=== PATIENT | male | born 1965 | race Caucasian/White ===

== ENCOUNTER → 2017-04-22 | Outpatient (CLI) | payer OTHER ==
[~2017-04-22] MED LIST: ALBUAER2 INH; LORA10CA2 PO; METO25TA56 PO; SYMIN160 INH; TIOTCAP INH
--- NOTE | 2017-04-22 09:20 | DIAGNOSTIC IMAGING REPORT ---
CHEST 2 VIEWS ROUTINE HISTORY: Z87.891 Former [id number] COMPARISON: Chest 05/18/2011. FINDINGS: The heart is normal in size. No pleural effusions. No pneumothorax. The lungs are hyperexpanded with apical predominant emphysematous changes. Biapical pleural thickening has slightly progressed. Linear scarlike densities within the right lung apex, unchanged. There are new bibasilar linear densities. Mild interstitial thickening is likely chronic. IMPRESSION: 1. There are new bibasilar linear densities. This favors atelectasis. However, a pneumonia could also have a similar appearance. 2. Emphysema. 3. Biapical pleural thickening which has slightly progressed. Electronically signed by: Broderick Nunez M.D. 04/22/2017 9:19 AM Dictated Date/Time: 04/22/2017 9:17 AM
== END | disposition home or self-care (01) ==
LOC: C.RAD1850 08:42
PROVIDERS: ATTEND Physician Assistant
DX: Z87.891 Personal history of nicotine dependence (principal)

== ENCOUNTER → 2017-10-22 | Outpatient (CLI) | payer OTHER ==
--- NOTE | 2017-10-22 10:26 | DIAGNOSTIC IMAGING REPORT ---
CHEST 2 VIEWS ROUTINE HISTORY: 52 years-old Male R05 [id number] acute cough COMPARISON: Chest radiographs 04/22/2017 TECHNIQUE: PA and lateral views of the chest FINDINGS: Cardiac silhouette is within normal limits. Opacity about the right cardiophrenic angle redemonstrated suggesting prominent epicardial fat pad. Biapical pleural-parenchymal scarring with pleural thickening. Bullous emphysematous changes are noted with chronic interstitial coarsening. Lungs are hyperinflated with diaphragmatic flattening. Subsegmental left greater than right bibasilar opacities. Degenerative changes of the shoulders and spine. IMPRESSION: 1. Bullous emphysema with chronic interstitial coarsening. 2. Subsegmental bibasilar opacities favor atelectasis/scarring. The above report was generated using voice recognition software. It may contain grammatical, syntax or spelling errors. Electronically signed by: Paulino Aguayo M.D. 10/22/2017 10:24 AM Dictated Date/Time: 10/22/2017 10:22 AM
== END | disposition home or self-care (01) ==
LOC: C.RAD1850 10:07
PROVIDERS: ATTEND Physician Assistant
DX: R05 Cough (principal); J43.9 Emphysema, unspecified

== ENCOUNTER 2018-12-06 11:49 | Observation (INO) ==
--- NOTE | 2018-12-06 14:53 | Ultrasound Report ---
US extremity non-vascular ltd CLINICAL HISTORY: R 2nd digit abscess drained, now pain. ?Wood FB COMPARISON STUDY: Right finger 12/03/2018. FINDINGS: Real-time sonographic imaging along the undersurface of the right index finger was performe d with insurance healthcare representative images submitted. There is a sliver of slightly complex subdermal fluid no echo genic foreign bodies identified. IMPRESSION: A sliver of slightly complex subdermal fluid measuring 2.2 x 0.3 cm. This could represen t a residual abscess. No foreign bodies identified. Electronically signed by: Broderick Nunez M.D. 12/06/2018 2:51 PM
--- NOTE | 2018-12-06 15:39 | Orthopedic Consultation ---
Date of Consultation December 06, 2018 Assessment & Plan (1) Abscess of finger of right hand: Patient failed conservative management with simple I&D, packing placement and PO ABX. Has elected to under go surgical I&D with culturing and IV ABX. Reviewed consent form with Dr. Pringle and signed for elective procedure. We will keep patient overnight for IV ABX and pain control. Supervising Physician Co-Signing Physician Notes I saw and examined the patient and formulated the treatment plan. Proceed to OR tonight for I&D. Admit for IV antibiotics after surgery. Plan on D/C home tomorrow. History of Present Illness Reason for Consultation: Right index finger septic arthritis / abscess Attending Physician: Fei Pringle MD History of Present Illness This 53 yo M is seen in ED for consultation. Pt states that he had a puncture wound and foreign body on the ventral surface of his Right index finger approx 2 wks ago. Was seen in ED this past , had simple I&D with packing placement and OR ABX treatment with Bactrim and Keflex. Came back to ED today for follow up and packing removal. Symptoms progressed for worse with very limited ROM and purulent drainage. Pt denies numbness/tingling, CP, SOB, Nausea, vomiting, diarrhea, fever, chills or sweats. Allergies Allergy/AdvReac Type Severity Reaction Status Date / Time No Known Allergies Allergy Unknown Verified 12/06/18 16:19 Home Medications Home Medications Medication Instructions Recorded Confirmed Type metoprolol succinate [Toprol XL] 12.5 mg PO BID 01/18/18 12/06/18 History cephalexin [Keflex] 500 mg PO Q6H 10 Days #40 cap 12/03/18 12/06/18 Rx sulfamethoxazole-trimethoprim 1 tab PO Q12H #20 tab 12/03/18 12/06/18 Rx [Bactrim DS] albuterol sulfate [ProAir HFA] 2 puff INHALATION Q4 PRN 12/06/18 12/06/18 History [id number]-sdhyymvxq-bguiccfc 1 inh INHALATION DAILY 12/06/18 12/06/18 History [Trelegy Ellipta] Patient History Medical History History of COPD History of heart disease Surgical History History of left heart catheterization No pertinent past surgical history Family History Other No pertinent family history Social History Feels Safe at Home: Yes Smoking Status: Former smoker Tobacco Type: cigarettes ; Do You Dip or Chew Tobacco: Yes ; Hx Alcohol Use: Yes Hx Substance Use: No Review of Systems Review of Systems: All systems reviewed & are unremarkable except as noted in HPI & below Physical Exam Physical Exam: Right hand: Edematous area over MCP on ventral surface with fluctuance, central opening, surrounding erythema and limited ROM at MCP joint. Unable to make fist. No ecchymosis, warmth or palpable bony deformity. Able resist compressing between 2nd and 3rd digits. Able to resist distraction of pincer grasp. FROM of wrist. Appropriate dexterity of remaining digits. Results & Data Vital Signs (Past 12 Hours) Vital Signs Temp Pulse Pulse Resp BP BP Pulse Ox 12/06/18 13:50 88 18 124/74 99 12/06/18 11:50 36.7 C 77 20 125/71 96
[2018-12-06 15:54] LABS: Basophils # (auto) 0.04 K/uL (0-0.2); Basophils % (auto) 0.7 %; Eosinophils # (auto) 0.38 K/uL (0-0.5); Hemoglobin 15.2 g/dL (14.0-18.0); Immature Granulocytes # (auto) 0.01 K/uL (0.00-0.02); Immature Granulocytes % (auto) 0.2 %; Lymphocytes # (auto) 1.96 K/uL (1.2-3.4); Lymphocytes % (auto) 36.1 %; Mean Corpuscular Hgb Conc 34.5 g/dL (32-36); Mean Corpuscular Volume 89.6 fL (80-100); Mean Platelet Volume 10.6 fL (7.4-10.4); Monocytes # (auto) 0.59 K/uL (0.11-0.59); Monocytes % (auto) 10.9 %; Neutrophils # (auto) 2.45 K/uL (1.4-6.5); Neutrophils % (auto) 45.1 %; Platelet Count 178 K/uL (130-400); RDW Standard Deviation 42.6 fL (36.4-46.3); Red Blood Count 4.91 M/uL (4.7-6.1); White Blood Count 5.43 K/uL (4.8-10.8)
[2018-12-06] MEDS ORDERED: cefTRIAXone SODIUM 2000MG/70ML D5W IV ONE (16:02)
[2018-12-06 16:10] LABS: Albumin Level 3.6 gm/dl (3.4-5.0); BUN Creatinine Ratio 13.4 (10-20); Creatinine Clr Calc Pharmacy 74.6 ml/min; Est GFR (African American) 73.6; Est GFR (Non-African American) 63.5
[2018-12-06 16:13] LABS: Albumin Globulin Ratio 1.1 (0.9-2); Bilirubin,Total 0.6 mg/dl (0.2-1); Globulin 3.4 gm/dl (2.5-4.0)
[2018-12-06] MEDS ORDERED: LIDOCAINE HCL 2% 2 ML VIAL/AMP(20MG/ML) INFIL ONE (16:18)
[2018-12-06] MEDS ORDERED: DEXAMETHASONE SOD INJ 4 MG/ML VIAL ONE (16:18)
[2018-12-06] MEDS ORDERED: ONDANSETRON INJ 2 MG/ML 2 ML VIAL ONE (16:18)
[2018-12-06] MEDS ORDERED: PROPOFOL IV EMULSION 10 MG/ML 20 ML VIAL IV ONE (16:18)
[2018-12-06] MEDS ORDERED: MIDAZOLAM HCL 1 MG/ML 2ML VIAL ONE (16:19)
[2018-12-06] MEDS ORDERED: fentaNYL citrate 100 MCG/2 ML VIAL ONE (16:19)
[2018-12-06] MEDS ORDERED: BUPIVACAINE/EPINEPHRINE 0.5% MPF 1:200,000 30 ML VIAL ONE (16:26)
--- NOTE | 2018-12-06 16:28 | Anesthesiology Consultation ---
Date of Service December 06, 2018 Assessment & Plan (1) Encounter for pre-operative examination: Chart Review Chart Review: Acceptable Risk for Surgery and Patient NOT seen in Pre Admission Testing Consults Requested none ASA [id number] Proposed Anesthesia Anesthesia Type: General Risk / Benefits Reviewed With: PT / POA / Parent / Guardian, Accepts Plan and Informed Consent Obtained Additional Notes Patient refuses to remove contacts - understands that he is at risk of permanent eye damage including corneal abrasion. Pt adament that he will not remove contacts despite risk. History Surgery Operation Date: 12/06/18 16:00 Proposed Procedures p Incision and Drainage Extremity - Fei Pringle MD Height/Weight Height: 6 ft 4 in Weight: 79 kg Allergies Allergy/AdvReac Type Severity Reaction Status Date / Time No Known Allergies Allergy Unknown Verified 12/06/18 16:19 Medications Home Medications Medication Instructions Recorded Confirmed Last Taken metoprolol succinate [Toprol XL] 12.5 mg PO BID 01/18/18 12/06/18 Unknown cephalexin [Keflex] 500 mg PO Q6H 10 Days #40 cap 12/03/18 12/06/18 12/06/18 09:00 sulfamethoxazole-trimethoprim 1 tab PO Q12H #20 tab 12/03/18 12/06/18 12/06/18 09:00 [Bactrim DS] albuterol sulfate [ProAir HFA] 2 puff INHALATION Q4 PRN 12/06/18 12/06/18 Unknown [id number]-vgfstqpfu-weaxcxkt 1 inh INHALATION DAILY 12/06/18 12/06/18 Unknown [Trelegy Ellipta] NPO Date Last Intake of Fluids: 12/06/18 Time Last Intake of Fluids: 13:30 Date Last Intake of Solids: 12/05/18 Time Last Intake of Solids: 23:59 Past Medical History Medical History History of COPD History of heart disease Exercise / Class Metabolic Activity II 4-5 Yardwork/Stairs/Walk up hill Negative for chest pain or shortness of breath. Past Family History Family History Other No pertinent family history Past Surgical History Surgical History History of left heart catheterization No pertinent past surgical history Past Anesthesia History No Family Hx of Anesthesia Complications History of PONV No Hx of Motion Sickness Social History Smoking Status: Former smoker tobacco type: cigarettes Do You Dip or Chew Tobacco: Yes Hx Alcohol Use: Yes alcohol intake frequency: a few times a week (4-6 per week) Hx Substance Use: No Review of Systems Patient denies active symptoms of GERD. Physical Exam Vital Signs Last Vital Signs Temp 36.7 C 12/06/18 11:50 Pulse 57 L 12/06/18 16:11 Resp 18 12/06/18 16:11 BP 146/68 H 12/06/18 16:11 Pulse Ox 95 12/06/18 16:11 Constitutional not obese ENMT Mouth: + poor dentition and + chipped teeth; no TMJ abnormality and oral opening not small Thyromental Distance: > or= 3.5 Finger Breadths Mallampati Class: III Mouth / Teeth: 1. Chipped, broken and missing Neck normal visual inspection and + facial hair; neck extension not limited Respiratory normal respiratory effort Auscultation: lungs clear to auscultation bilaterally Cardiovascular Rate/Rhythm: regular rate and regular rhythm Heart Sounds: no murmur Neurologic moves all extremities Psychiatric Orientation: alert and oriented x 3 Testing Laboratory Results 12/06/18 15:45 12/06/18 15:45 Electrocardiogram Date: 12/06/18 Findings: + SB @ (52)
[2018-12-06] MEDS ORDERED: ePHEDrine sulfate 50 MG/ML SYR ONE (17:10)
[2018-12-06] MEDS ORDERED: ePHEDrine sulfate 50 MG/ML AMP IV PRN (17:16)
[2018-12-06] MEDS ORDERED: fentaNYL citrate 100 MCG/2 ML VIAL IV PRN (17:16)
[2018-12-06] MEDS ORDERED: ATROPINE SULFATE 0.1 MG/ML 10ML SYR IV PRN (17:16)
[2018-12-06] MEDS ORDERED: ONDANSETRON INJ 2 MG/ML 2 ML VIAL IV PRN ×2 (17:16→17:35)
--- NOTE | 2018-12-06 17:34 | Operative Report ---
Post Operative Report Pre & Post Diagnosis Operation Date: 12/06/18 16:00 Pre-Op Diagnosis: Right Index Finger Abscess Post-Op Diagnosis: Right Index Finger Abscess Procedure Operation Date: 12/06/18 16:00 Actual Procedures p Incision and Drainage Right Index Finger Abscess(Right) - Fei Pringle MD Surgeon Fei Pringle MD Tax Compliance Officer Chyna Hess PA-C Estimated Blood Loss 1 Findings Consistent with Post-Op Diagnosis Specimens Culture Right index finger Complications none Disposition Accompanied Patient To Recovery: Yes Disposition: Recovery Room Description of Procedure I was present during the entire case assisting with irrigation, debridement and dressing application. Please see Dr. Pringle procedure note for specifics of the case. I attest to the content of the Intraoperative Record and any orders documented therein. Any exceptions are noted below.
[2018-12-06] MEDS ORDERED: DiphenhydrAMINE HCL 50 MG/ML VIAL IV PRN (17:35)
[2018-12-06] MEDS ORDERED: METOCLOPRAMIDE HCL INJ 5 MG/ML 2 ML VIAL IV PRN (17:35)
[2018-12-06] MEDS ORDERED: NALOXONE HCL 0.4 MG/1 ML VIAL/CARP IV PRN (17:35)
[2018-12-06] MEDS ORDERED: OXYCODONE HCL IR 5 MG TAB (IMMEDIATE RELEASE) PO PRN (17:35)
[2018-12-06] MEDS ORDERED: MAGNESIUM HYDROXIDE SUSP 30 ML UDC PO PRN (17:35)
[2018-12-06] MEDS ORDERED: TAMSULOSIN HCL 0.4 MG CAP PO PRN (17:35)
[2018-12-06] MEDS ORDERED: BISACODYL 10 MG SUPP PR PRN (17:35)
--- NOTE | 2018-12-06 18:06 | Anesthesiology Progress Note ---
Date of Service December 06, 2018 Anesthesia Post Procedure Vital Signs Vital Signs: Temp Pulse Pulse Pulse Resp BP BP 12/06/18 17:55 66 14 116/55 L 12/06/18 17:45 60 14 103/63 12/06/18 17:36 36.4 C L 59 L 14 107/58 L 12/06/18 16:11 57 L 18 146/68 H 12/06/18 13:50 88 18 124/74 12/06/18 11:50 36.7 C 77 20 125/71 Pulse Ox 12/06/18 17:55 96 12/06/18 17:45 96 12/06/18 17:36 96 12/06/18 16:11 95 12/06/18 13:50 99 12/06/18 11:50 96 Pain Intensity Right 2nd Digit Finger: Pain Intensity: 3 Transfer of Care Handoff Completed per policy Notes Mental Status: alert / awake / arousable and participated in evaluation Patient Amnestic to Procedure: Yes Nausea / Vomiting: adequately controlled Pain: adequately controlled Airway Patency, RR, SpO2: stable & adequate BP & HR: stable & adequate Hydration State: stable & adequate Anesthetic Complications: no major complications apparent and Pt Satisfied with anesthetic care
[2018-12-06] MEDS ORDERED: ALBUTEROL HFA 8 GM INHALER INH PRN (18:25)
[2018-12-06] MEDS: KETOROLAC 30 MG/ML VIAL IV SCH (19:23)
[2018-12-06] MEDS: SODIUM CHLORIDE 0.9% 1000ML 1,000 ML IV SCH (19:23)
--- NOTE | 2018-12-06 20:38 | Emergency Department Note ---
History of Present Illness General Chief complaint: Suture/Staple/Packing Removal Stated complaint: PACKING IN FINGER NEEDS REMOVED Time Seen by Provider: 12/06/18 11:53 History of Present Illness Maximum Pain Intensity: 3 This is a 53-year-old male that presents to the emergency department via private vehicle with complaints of "packing in finger, needs removed". The patient states that he was here on the , and was informed to have it rechecked. He is here for removal of the packing. He notes some persistence of pain is a 3/10 but he has been following all directions and taking the antibiotics as prescribed. No fevers or chills. Home Medications Home Medications Medication Instructions Recorded Confirmed Type metoprolol succinate [Toprol XL] 25 mg PO DAILY 01/18/18 12/06/18 History cephalexin [Keflex] 500 mg PO Q6H 10 Days #40 cap 12/03/18 12/06/18 Rx sulfamethoxazole-trimethoprim 1 tab PO Q12H #20 tab 12/03/18 12/06/18 Rx [Bactrim DS] albuterol sulfate [ProAir HFA] 2 puff INHALATION Q4 PRN 12/06/18 12/06/18 History sxvompvvtrb-ewyuhiwxf-vawxfdkz 1 inh INHALATION DAILY 12/06/18 12/06/18 History [Trelegy Ellipta] Allergies Allergy/AdvReac Type Severity Reaction Status Date / Time No Known Allergies Allergy Unknown Verified 12/06/18 16:19 Past Med/Surg History Medical History History of COPD History of heart disease Surgical History History of left heart catheterization No pertinent past surgical history Family History Other No pertinent family history Social History Preferred Language: Armenian Beliefs That Will Affect Care: None Current Living Situation: Spouse Other Information That Helps Us Care for You: No Feels Safe at Home: Yes Safety Concerns: Feels Safe At This Time Smoking Status: Former smoker Tobacco Type: smokeless tobacco ; Do You Dip or Chew Tobacco: Yes ; Second Hand Exposure: Yes ; Hx Alcohol Use: Yes Alcohol type: beer Hx Substance Use: No Review of Systems A total of 10 systems reviewed and were otherwise negative Physical Exam Vital Signs Vital Signs - 24 hr 12/06/18 11:50 12/06/18 13:50 12/06/18 16:11 Temperature 36.7 C Temperature Source Oral Sepsis Recent Fever Within 48 Hours No Sepsis New/Unexplained Change in Mental Status No Sepsis Action Taken by Nursing No Action Required Pulse Rate 77 Pulse Rate [Left Finger] 88 57 L Pulse Rhythm Regular Pulse Strength Normal Respiratory Rate 20 18 18 Respiratory Effort / Characteristics Non-Labored Spontaneous Non-Labored Spontaneous Respiratory Depth Normal Normal Respiratory Pattern Regular Regular Blood Pressure 125/71 Blood Pressure [Left Arm] 124/74 146/68 H Blood Pressure Mean 89 Blood Pressure Mean [Left Arm] 90 94 Blood Pressure Position Sitting Blood Pressure Position [Left Arm] Lying Pulse Oximetry 96 99 95 Oxygen Delivery Method Room Air Room Air Room Air VITAL SIGNS - Vital signs and nursing notes were reviewed. Stable and afebrile. GENERAL -53-year-old male appearing his stated age who is in no acute distress. Communicates well with provider and answers questions appropriately. SKIN -overlying the ventral aspect of the patient's right proximal second digit there is packing inside a wound with surrounding yellow discoloration under the integument concerning for that of possible redeveloping abscess. There is no lymphogenic streaking. MOUTH/OROPHARYNX - Without perioral cyanosis. LUNGS - Chest wall symmetric without accessory muscle use, intercostals retractions, or central cyanosis. Normal vesicular breath sounds CTA B/L. No wheezes, rales, or rhonchi appreciated. CARDIAC - RRR with S1/S2. No murmur, rubs, or gallops appreciated. EXTREMITIES - No clubbing or peripheral cyanosis. No pretibial edema present. Skin as above. Patient is exquisitely tender overlying the wound. Minimal drainage. Packing in place. Full active extension of the right second digit however patient has limited flexion at the MCP joint of the right second digit. +5/5 strength noted in UE/LE bilaterally. NEUROLOGIC - Cranial nerves II through XII grossly intact. Sensory intact to light touch throughout. PSYCH - A&O, and cooperates fully with examiner. Pt is very pleasant and interac ts well with examiner. Course Administered Medications Acetaminophen (Tylenol) 1,000 mg PO Q8 EMMANUEL Stop: 01/05/19 21:59 Last Admin: 12/06/18 21:03 Dose: 1,000 mg Documented by: [id number] Docusate Sodium (Colace) 100 mg PO BID EMMANUEL Stop: 01/05/19 20:59 Last Admin: 12/06/18 21:00 Dose: Not Given Documented by: [id number] Sodium Chloride (Nss 1000ml) 1,000 mls @ 100 mls/hr IV .Q10H EMMANUEL Stop: 12/07/18 06:00 Last Admin: 12/06/18 19:23 Dose: 100 mls/hr Documented by: [id number] Ketorolac Tromethamine (Toradol) 30 mg IV Q6H EMMANUEL Stop: 12/07/18 13:01 Last Admin: 12/06/18 19:23 Dose: 30 mg Documented by: [id number] Sennosides (Senokot) 17.2 mg PO HS EMMANUEL Stop: 01/05/19 20:59 Last Admin: 12/06/18 21:00 Dose: Not Given Documented by: [id number] Discontinued Medications Bupivacaine HCl/Epinephrine Bitart (Sensorcaine/Epinephrine 0.5% Mpf 1:200,000) Confirm Administered Dose 30 ml .ROUTE .STK-MED ONE Stop: 12/06/18 16:27 Last Admin: 12/06/18 17:15 Dose: 8 ml Documented by: [id number] Ceftriaxone Sodium (Rocephin) Confirm Administered Dose 2,000 mg IV .STK-MED ONE Stop: 12/06/18 16:03 Last Admin: 12/06/18 16:11 Dose: 2,000 mg Documented by: [id number] Metoprolol Succinate (Toprol Xl) 12.5 mg PO BID EMMANUEL Stop: 01/05/19 20:59 Last Admin: 12/06/18 21:00 Dose: Not Given Documented by: [id number] Medical Decision Making Laboratory Data Result diagrams: 12/06/18 15:45 12/06/18 15:45 Lab Results 12/06/18 12/06/18 Range/Units 15:45 15:45 WBC 5.43 (4.8-10.8) K/uL RBC 4.91 (4.7-6.1) M/uL Hgb 15.2 (14.0-18.0) g/dL Hct 44.0 (42-52) % MCV 89.6 (80-100) fL MCH 31.0 (25-34) pg MCHC 34.5 (32-36) g/dL RDW Std Deviation 42.6 (36.4-46.3) fL RDW Coeff of Chad 13.0 (11.5-14.5) % Plt Count 178 (130-400) K/uL MPV 10.6 H (7.4-10.4) fL Immature Gran % (Auto) 0.2 % Neut % (Auto) 45.1 % Lymph % (Auto) 36.1 % Burleigh % (Auto) 10.9 % Eos % (Auto) 7.0 % Baso % (Auto) 0.7 % Immature Gran # (Auto) 0.01 (0.00-0.02) K/uL Neut # (Auto) 2.45 (1.4-6.5) K/uL Lymph # (Auto) 1.96 (1.2-3.4) K/uL Burleigh # (Auto) 0.59 (0.11-0.59) K/uL Eos # (Auto) 0.38 (0-0.5) K/uL Baso # (Auto) 0.04 (0-0.2) K/uL Sodium 140 (136-145) mmol/L Potassium 4.0 (3.5-5.1) mmol/L Chloride 105 (98-107) mmol/L Carbon Dioxide 28 (21-32) mmol/L Anion Gap 7.0 (3-11) BUN 17 (7-18) mg/dl Creatinine 1.28 (0.6-1.4) mg/dl Est Cr Clr Drug Dosing 74.6 ml/min Est GFR ( Amer) 73.6 Est GFR (Non-Af Amer) 63.5 BUN/Creatinine Ratio 13.4 (10-20) Glucose 94 (70-99) mg/dl Calcium 9.0 (8.5-10.1) mg/dl Total Bilirubin 0.6 (0.2-1) mg/dl AST 17 (15-37) U/L ALT 27 (12-78) U/L Alkaline Phosphatase 118 H (45-117) U/L Total Protein 7.0 (6.4-8.2) gm/dl Albumin 3.6 (3.4-5.0) gm/dl Globulin 3.4 (2.5-4.0) gm/dl Albumin/Globulin Ratio 1.1 (0.9-2) Imaging Data Radiologist's Impression: US extremity non-vascular ltd CLINICAL HISTORY: R 2nd digit abscess drained, now pain. ?Wood FB COMPARISON STUDY: Right finger 12/03/2018. FINDINGS: Real-time sonographic imaging along the undersurface of the right index finger was performed with outside medical sales representative images submitted. There is a sliver of slightly complex subdermal fluid no echogenic foreign bodies identified. IMPRESSION: A sliver of slightly complex subdermal fluid measuring 2.2 x 0.3 cm. This could represent a residual abscess. No foreign bodies identified. Electronically signed by: Broderick Nunez M.D. 12/06/2018 2:51 PM MDM Narrative Patient was seen and evaluated as above in room D2. Review was performed of nursing notes and vital signs. After obtaining a thorough history and physical examination the above work up was performed. He presents to us today for packing removal and wound recheck. I personally took care of the patient this past the . He is nontoxic on exam. Unfortunately patient is still quite tender despite being on the correct antibiotics for the wound, and washout of the wound a few days ago after I&D. After remove the packing there was some purulence. I had him soak the hand and I thoroughly irrigated this and unfortunately he was still quite tender. I am concerned there could be a small retained splinter/possible deeper infection that was not visualized when this was drained. I do believe that orthopedic involvement at this time is warranted. I discussed this with Dr. Pringle who came to bedside and decided to take the patient to the operative suite for further evaluation and management. Please refer to further documentation regarding his stay. Impression & Plan Encounter for wound re-check, Abscess packing removal, Persistent infection Discharge Plan Visit Data *Final* Discharge Date/Time: 12/06/18 16:13 Chief Complaint: Suture/Staple/Packing Removal Stated Complaint: PACKING IN FINGER NEEDS REMOVED ED Provider: Александр Serrano ED Midlevel Provider: Dao Cook Discharge Problem: Encounter for wound re-check, Abscess packing removal, Persistent infection Patient Disposition: Admitted As Inpatient Condition: Good Discharge Instructions Interventions: ED Discharge Assessment Last Done: 12/06/18 16:13
[2018-12-06] MEDS ORDERED: METOPROLOL SUCC 25MG EXT REL TAB PO SCH (21:00)
[2018-12-06] MEDS: DOCUSATE SODIUM 100 MG CAP PO SCH (21:00)
[2018-12-06] MEDS ORDERED: SENNA 8.6 MG TAB PO SCH (21:00)
[2018-12-06] MEDS ORDERED: Nursing to Pharmacy Communication ONE (21:00)
[2018-12-06] MEDS: ACETAMINOPHEN 500 MG TAB PO SCH (21:03)
--- NOTE | 2018-12-06 21:12 | Operative Report ---
DATE OF OPERATION: 12/06/2018 PREOPERATIVE DIAGNOSIS: Right hand abscess. POSTOPERATIVE DIAGNOSIS: Right hand abscess. OPERATIONS PERFORMED: Irrigation and debridement, right hand abscess. SURGEON: Fei Pringle MD STRAP MACHINE OPERATOR: Markell Hess PA-C. ESTIMATED BLOOD LOSS: 1 mL. IV FLUIDS: 600 mL crystalloid. SPECIMENS: Deep soft tissue swab. COMPLICATIONS: None. IMPLANTS: None. INDICATIONS: Mr. Carcamo is a 53-year-old gentleman who had a splinter get into his hand about 2 weeks ago. He developed an abscess that was I and D'd in the Emergency Room about 4 days ago. He came back today to have his packing removed. When it was removed, there was continued significant amount of purulence that came out of the wound. The patient complained of significant amount of pain as well over the area of the abscess. An ultrasound was performed which revealed a fluid pocket at the site of his previous I and D. No foreign body was identified on ultrasound. I had a long discussion with the patient about treatment options. Due to the concern for retained foreign body not visible on x-ray as well as the failure to respond to a local I and D, he is a candidate for surgical I and D. After reviewing the risks and benefits of surgery, alternatives to surgery and expected outcome, he elected to proceed. All questions were answered. Informed consent was signed. OPERATIVE FINDINGS: I was unable to identify a foreign body. There was some necrotic appearing tissue within the dermal layer which was excised. Deep culture was obtained. Packing was placed into the wound at the conclusion of the case. DESCRIPTION OF THE OPERATION: The patient was identified in the preoperative holding area where his surgical site was marked. He was brought back to main operating room where he was placed on the operating room table and general anesthesia was administered. All bony prominences were padded. Perioperative antibiotics had already been administered of Rocephin. He was then prepped and draped in normal sterile fashion. Prior to incision multidisciplinary timeout was called. All in the room were in agreement. I began by extending his previous incision, which was only about 3 mm long to a total distance of 1.5 cm. I dissected through the subcutaneous tissues. There was some necrotic appearing tissue along the proximal aspect of his previous incision which was debrided. He had some callusing of the epidermis as well that was removed. There were no maria ines fluid collections deeper. The wound did not probe down to the flexor tendon sheath. I then irrigated the wound with 1 liter of normal saline. Two strips of packing were placed in the wound to keep it open. A gauze dressing was then placed followed by Josiah. The patient was awoken from anesthesia and transferred to recovery room in stable condition. POSTOPERATIVE COURSE: The patient will be admitted overnight for continued IV antibiotics. We will follow his cultures. We will likely discharge him home tomorrow on oral antibiotics. His previous cultures done at his I and D in the Emergency Room grew MSSA, but he did not respond to Keflex and Bactrim, so we will see what his preliminary cultures show from today. No DVT prophylaxis was indicated after the small upper extremity joint surgery. I attest to the content of the Intraoperative Record and any orders documented therein. Any exception s are noted below.
[2018-12-07] MEDS: KETOROLAC 30 MG/ML VIAL IV SCH ×3 (00:19→13:10)
[2018-12-07] MEDS: ACETAMINOPHEN 500 MG TAB PO SCH ×2 (05:24→13:10)
[2018-12-07] MEDS: SODIUM CHLORIDE 0.9% 1000ML 1,000 ML IV SCH (05:26)
[2018-12-07 07:00] LABS: Hemoglobin 13.7 g/dL (14.0-18.0); Mean Corpuscular Hgb Conc 33.4 g/dL (32-36); Mean Corpuscular Volume 89.7 fL (80-100); Mean Platelet Volume 11.2 fL (7.4-10.4); Platelet Count 193 K/uL (130-400); RDW Coefficient of Variation 12.9 % (11.5-14.5); RDW Standard Deviation 42.6 fL (36.4-46.3); Red Blood Count 4.57 M/uL (4.7-6.1); White Blood Count 5.59 K/uL (4.8-10.8)
[2018-12-07] MEDS: DOCUSATE SODIUM 100 MG CAP PO SCH (07:25)
[2018-12-07 07:31] LABS: BUN Creatinine Ratio 19.2 (10-20); Calcium 8.7 mg/dl (8.5-10.1); Creatinine Clr Calc Pharmacy 71.7 ml/min; Est GFR (African American) 71.5; Est GFR (Non-African American) 61.7; Potassium 4.4 mmol/L (3.5-5.1)
[2018-12-07] MEDS ORDERED: MULTIVITAMIN TAB PO SCH (09:00)
[2018-12-07] MEDS ORDERED: METOPROLOL SUCC 25MG EXT REL TAB PO SCH (09:00)
[2018-12-07] MEDS ORDERED: FLUTICASONE/UMECLIDIN/VILANTER INH SCH (09:00)
--- NOTE | 2018-12-07 10:11 | Orthopedic Progress Note ---
Date of Service December 07, 2018 Assessment & Plan (1) Abscess of finger of right hand: Will shower this AM, then soak hand in normal saline for 20 minutes, then nursing to repack wound with 1/4 inch packing strip, cover with gauze and coban. He will receive another dose of IV rocephin at noon, then august D/C home on oral dicloxacillin. Follow-up with my PA, MARI Hess this Friday in clinic. Off work until then. Subjective Did well overnight. No pain. Has some numbness in his index finger. Denies cp/sob Physical Exam Physical Exam: Gen: A&O x 3. NAD R hand: dressing taken down. Packing removed. No purulence expressed. Nontender. Numb in the radial and ulnar digital nerve distributions. Results & Data Vital Signs (Past 12 Hours) Vital Signs Temp Pulse Resp BP Pulse Ox 12/07/18 07:48 36.4 C L 67 18 121/67 93 12/07/18 03:20 93 12/07/18 03:15 36.6 C 62 18 95/58 L 88 L 12/06/18 23:25 36.5 C 75 18 94/53 L 91
[2018-12-07] MEDS ORDERED: cefTRIAXone SODIUM 2,000 MG in DEXTROSE 5% 50 ML IV SCH ×2 (13:00→16:00)
--- NOTE | 2018-12-08 12:44 | Discharge Summary ---
Date of Service December 08, 2018 Admission HPI Per Admitting Provider This 53 yo M is seen in ED for consultation. Pt states that he had a puncture wound and foreign body on the ventral surface of his Right index finger approx 2 wks ago. Was seen in ED this past , had simple I&D with packing placement and OR ABX treatment with Bactrim and Keflex. Came back to ED today for follow up and packing removal. Symptoms progressed for worse with very limited ROM and purulent drainage. Pt denies numbness/tingling, CP, SOB, Nausea, vomiting, diarrhea, fever, chills or sweats. Admission Exam Per Admitting Provider Right hand: Edematous area over MCP on ventral surface with fluctuance, central opening, surrounding erythema and limited ROM at MCP joint. Unable to make fist. No ecchymosis, warmth or palpable bony deformity. Able resist compressing between 2nd and 3rd digits. Able to resist distraction of pincer grasp. FROM of wrist. Appropriate dexterity of remaining digits. Principal Diagnosis Right hand/index finger abscess Discharge Exam Gen: A&O x 3. NAD R hand: dressing taken down. Packing removed. No purulence expressed. Nontender. Numb in the radial and ulnar digital nerve distributions. Discharge Data Allergies Allergy/AdvReac Type Severity Reaction Status Date / Time No Known Allergies Allergy Unknown Verified 12/06/18 16:19 Consultations 12/06/18 17:35 Consult Case Management - Discharge Planning Routine Procedures Performed Operation Date: 12/06/18 16:00 Actual Procedures p Incision and Drainage Right Index Finger Abscess(Right) - Fei Pringle MD Ordered Studies 12/06/18 13:06 extremity non-vascular [facility] Stat Hospital Course (1) Abscess of finger of right hand: Did well overnight. Work note given. Will shower this AM, then soak hand in normal saline for 20 minutes, then nursing to repack wound with 1/4 inch packing strip, cover with gauze and coban. He will receive another dose of IV rocephin at noon, then august D/C home on oral dicloxacillin. Follow-up with my PAMARI this Friday in clinic. Off work until then. Total Time Total Time Spent Total Time Spent (In Minutes): 20 mins Total Time Includes: Examination of the Patient, Discharge Planning and Medication Reconciliation Discharge Plan Discharge Items Patient Disposition: Home - Self-Care Reason For Visit: PACKING IN FINGER NEEDS REMOVED Discharge Diagnosis: Abscess Right index finger Condition: Good Discharge Goals: Decrease discomfort, Improve function and Increase independence Activity: As commented below Lifting: None Bathing: Keep incision dry Bathing Comment: May shower tomorrow Sexual Activity: Wait until after follow-up appointment Exercise/Sports: Wait until after follow-up appointment Driving/Machine Use: Resume 1 day after discharge Non-emergency contact: Primary Care Provider Call non-emergency contact if: you have any medication questions, your pain is not controlled, your temperature is above 101.5, your wound has increased drainage and your wound pain has increased Follow-up/Referrals: Mayuri Mayers MD [Primary Care Provider] - Diet: Regular Addtl Provider Instructions: Post-operative Instructions Dear Patient and Family/Friends, Before you are discharged from the hospital, it is important to know what to expect when you get home after surgery. To that end, we have created this sheet of discharge instructions which covers many commonly asked questions. Make sure you go through this sheet in its entirety with your nurse before you are discharged. Please note that we will go over the specifics of your surgery and recovery when you return for your first post-operative visit. Sincerely, Dr. Pringle Pain Expect to be in a fair amount of pain after surgery. Remember, our goal is not to eliminate your pain, but to make it tolerable. It is a good idea to stay ahead of your pain by taking the medications you were prescribed once you get home. Typically, the pain starts improving 3-7 days after surgery. You should start weaning off the narcotic pain medication (oxycodone, hydrocodone, hydromorphone, morphine) as soon as your pain improves. Please call our office if your pain is not adequately controlled. Ice Ice your operative site at least 5 times a day for 15-30 minutes at a time. Make sure you have a thin cloth between the ice or cooling unit and your skin to prevent ortega bite. This is especially important if you received a nerve block. Continue icing your operative site for the first 5-7 days after surgery, then as needed. Diet/Nausea/Vomiting Start by drinking clear liquids and eating crackers. If you can tolerate this, then you may resume your normal diet. If you feel nauseated or vomit, take Zofran/ondansetron (if prescribed). Please call our office if you have intractable nausea or vomiting, or, if after hours, you may go to the Emergency Room for help. Constipation Constipation is a common side effect of narcotic pain medication. If you have not had a bowel movement within 2 days after surgery, we recommend purchasing an over the counter laxative such as Milk of Magnesia, Dulcolax, or Miralax from a local pharmacy, and taking it as instructed. Call our clinic if any questions. Weight bearing and Range of Motion. Do not bear any weight through your operative extremity immediately after surgery. If you had upper extremity surgery, do not lift anything with that arm. If you are in a knee brace, keep it locked in place until your follow-up. We will discuss your weight bearing, range of motion, and lifting restrictions in detail at your first post-operative appointment. Continuous Passive Motion (CPM) Machine If you were prescribed a CPM machine, it will start after your first post- operative appointment, at which time we will give you instructions on the range of motion settings and duration of treatment Physical therapy You will be given a prescription for physical therapy or occupational therapy at your first post-operative appointment. Typically, patients start therapy within 1 week of surgery Wound care and showering We will inspect your wound at your first post-operative visit, and may do a dressing change at that time. Most patients will be in a water-proof dressing that is removed 14 days after surgery. It is normal to see some dried blood on the dressing. Do not remove your dressing, paper strips or sutures yourself unless you are given permission. Showering is allowed the day after surgery. Do not scrub or remove any dressings. The wound should not be submerged underwater (i.e. in a bathtub or pool) until 4 weeks after surgery ARA stockings If you were given white stockings, these are to be worn at all times except to shower (on both legs) for the first 2 weeks after surgery. Driving You may not drive while taking narcotic pain medication or while in a cast, splint, sling or brace. You, the patient, need to make the final determination about when you are safe to drive, however, the earliest you may consider driving after surgery is below: Hand/Wrist/Elbow Surgery: 3 days Shoulder Surgery: 2 weeks Hip,/Knee/Ankle Surgery: 4 weeks Fracture repair: 6 weeks Return to Work Your return to work depends on what surgery was done and what type of work you do. Please bring any paperwork your employer needs completed to your first post-operative visit. Also, bring a description of your job duties, as this helps us to understand what risks you may face at work. Travel Avoid long distance travel (greater than 1 hour) in airplanes and cars for the first 6 weeks after surgery. If you must travel, you need to have a Doppler ultrasound done before you travel to rule out a blood clot in your legs. Follow-up You should have a follow-up appointment already scheduled 1-2 days after surgery. If not, please contact our office to make this appointment before you leave the hospital. When to call the office It is normal to have swelling and bruising in the limb that was operated on. This will improve with time. It is also normal to have fevers for the first 2 days after surgery. Reasons you should call your doctor include: Uncontrolled pain; Nausea, vomiting, or constipation that does not improve with medication; Fevers over 101.5, chills, sweats; Drainage or bleeding from the wound; Foul odor; Spreading areas of redness; Any other concerns Prescriptions: New dicloxacillin 250 mg capsule 250 mg PO QID 14 Days Qty: 56 RF: 0 Continued metoprolol succinate [Toprol XL] 25 mg tablet extended release 24 hr 25 mg PO DAILY RF: 0 Trelegy Ellipta 100-62.5-25 mcg Blister With Device 1 inh INHALATION DAILY RF: 0 albuterol sulfate [ProAir HFA] 90 mcg/actuation Hfa Aerosol Inhaler 2 puff INHALATION Q4 PRN (Reason: Shortness Of Breath Or Wheezing) RF: 0 Discontinued sulfamethoxazole-trimethoprim [Bactrim DS] 800-160 mg tablet 1 tab PO Q12H Qty: 20 RF: 0 cephalexin [Keflex] 500 mg capsule 500 mg PO Q6H 10 Days Qty: 40 RF: 0 Stand-Alone Forms: [facility] Discharge Orders: Discharge Order (Routine); Ordered 12/07/18 Ordered By: Tristian Hess Admission Data Admit Date/Time: 12/06/18 17:35 Attending Provider: Fei Pringle Admit Provider: Fei Pringle Primary Care Provider: Mayuri Mayers Service: Surgical Services Other Interventions: Discharge Summary Assessment (RN) Last Done: 12/07/18 13:21 Pending Studies at Discharge: Yes Studies:: Culture of Right index finger abscess DC Date/Time DO NOT enter until pt leaves facility: 12/07/18 14:15
--- NOTE | 2018-12-08 12:48 | History & Physical Report ---
Date of Service December 08, 2018 Assessment & Plan (1) Abscess of finger of right hand: Patient failed conservative management with simple I&D, packing placement and PO ABX. Has elected to under go surgical I&D with culturing and IV ABX. Reviewed consent form with Dr. Pringle and signed for elective procedure. We will keep patient overnight for IV ABX and pain control. History of Present Illness Chief Complaint: Right hand (index finger) abscess Primary Care Provider: Mayuri Mayers MD This 53 yo M is seen in ED for consultation. Pt states that he had a puncture wound and foreign body on the ventral surface of his Right index finger approx 2 wks ago. Was seen in ED this past , had simple I&D with packing al cement and OR ABX treatment with Bactrim and Keflex. Came back to ED today for follow up and packing removal. Symptoms progressed for worse with very limited ROM and purulent drainage. Pt denies numbness/tingling, CP, SOB, Nausea, vomiting, diarrhea, fever, chills or sweats. Allergies Allergy/AdvReac Type Severity Reaction Status Date / Time No Known Allergies Allergy Unknown Verified 12/06/18 16:19 Home Medications Home Medications Medication Instructions Recorded Confirmed Type metoprolol succinate [Toprol XL] 25 mg PO DAILY 01/18/18 12/06/18 History Trelegy Ellipta 1 inh INHALATION DAILY 12/06/18 12/06/18 History albuterol sulfate [ProAir HFA] 2 puff INHALATION Q4 PRN 12/06/18 12/06/18 History dicloxacillin 250 mg PO QID 14 Days #56 cap 12/07/18 Rx Past Med/Surg History Medical History History of COPD History of heart disease Surgical History History of left heart catheterization No pertinent past surgical history Family History Other No pertinent family history Social History Preferred Language: Gren[place] Beliefs That Will Affect Care: None Current Living Situation: Spouse Other Information That Helps Us Care for You: No Feels Safe at Home: Yes Safety Concerns: Feels Safe At This Time Smoking Status: Former smoker Tobacco Type: smokeless tobacco ; Do You Dip or Chew Tobacco: Yes ; Second Hand Exposure: Yes ; Hx Alcohol Use: Yes Alcohol type: beer Hx Substance Use: No Review of Systems All systems reviewed & are unremarkable except as noted in HPI & below Physical Exam Physical Exam: VITAL SIGNS - Vital signs and nursing notes were reviewed. Hypertensive, otherwise stable. GENERAL -53-year-old male appearing his stated age who is in no acute distress. Communicates well with provider and answers questions appropriately. SKIN -on the ventral aspect of the patient's right proximal second digit just distal to the MCP joint there is a 1 cm in diameter, oval-shaped yellowish region consistent with a collection of fluid/abscess. EXTREMITIES - No clubbing or peripheral cyanosis. No pretibial edema present. Skin as above. Full range of motion of the patient's right second digit without any evidence of tenosynovitis. Cap refill distal to the infection is within normal limits. No lymphogenic streaking. There is only minimal erythema surrounding the 1 cm in diameter fluid collection. It appears to be localized. +5/5 strength noted in UE/LE bilaterally. NEUROLOGIC - Cranial nerves II through XII grossly intact. Sensory intact to light touch throughout. PSYCH - A&O, and cooperates fully with examiner. Pt is very pleasant and interacts well with examiner. ASA Classification ASA ASA2 Code Status & VTE Plan VTE Prophylaxis Plan VTE Prophylaxis will be ordered: No
== END 2018-12-07 14:15 | disposition home or self-care (01) ==
LOC: ED 11:49 → OR 16:10 → 3N 16:10

== ENCOUNTER 2020-04-25 23:13 | Observation (INO) ==
--- NOTE | 2020-04-25 23:48 | Emergency Department Note ---
History of Present Illness General Chief complaint: Infection Stated complaint: RIGHT FOOT PAIN Time Seen by Provider: 04/25/20 23:26 History of Present Illness Maximum Pain Intensity: 7 This is a 55-year-old male that presents to the emergency department via private vehicle with complaints "right foot pain". The patient notes that about 2 weeks ago he purchased new boots. He notes that these are the same type of boots that he always wears. He also notes that he purchased a new pair of socks which are too cold in more heat than regular socks. He states that a few days after he b alyx noticing a patch of red to the dorsum of both feet. This was painful. He then notes that this worsened and presented here on 04/22/2020. He notes that he was started on Keflex, Bactrim and Chlortrimazole. Patient states that he does work 8+ hours per day while wearing work boots on concrete floors. He is no longer using the previously described socks. He denies any fevers, chills, chest pain or shortness of breath. He denies any history of DVT or diabetes. Denies any history of chronic wounds. He has been compliant with the previously prescribed medication. He is here tonight noting an increase in worsening in the erythema and edema of the right foot. He did try Epsom salts soaks prior to arrival without relief. Current discomfort at this time is a 7/10. Home Medications Medication Instructions Recorded Confirmed Type metoprolol succinate [Toprol XL] 25 mg PO QAM 01/18/18 04/25/20 History albuterol sulfate 90 mcg/actuation 2 puff INHALATION Q4 PRN #6.7 gm 01/25/20 04/25/20 Rx aerosol inhaler cephalexin [Keflex] 500 mg PO TID 10 Days #30 cap 04/23/20 04/25/20 Rx clotrimazole [Lotrimin AF 1 applic TOPICAL TID #14 g 04/23/20 04/25/20 Rx (clotrimazole)] fluticasone propion-salmeterol 1 ea INH BID 04/23/20 04/25/20 History sulfamethoxazole-trimethoprim 1 tab PO BID 10 Days #20 tab 04/23/20 04/25/20 Rx [Bactrim DS] Allergies Allergy/AdvReac Type Severity Reaction Status Date / Time No Known Allergies Allergy Unknown Verified 04/25/20 23:35 Past Med/Surg History Medical History Back problem HX OF BACK BROKEN - NO SURGERY, HEALED ON OWN COPD (chronic obstructive pulmonary disease) COPD, group D, by GOLD 2017 classification Fast heart beat History of COPD History of fracture HX OF JAW BROKEN, WIRED, NO CURRENT HARDWARE, DENIES PROBLEMS WITH JAW MOVEMENT Mini stroke ? HX OF, POSSIBLE HX OF MENTIONED 15 YR AGO TO PT - NO RESIDUAL EFFECTS Polycythemia secondary to hypoxia Surgical History History of hand surgery 12/06/18 - FOR INFECTION OF RIGHT POINTER FINGER - HEALED History of left heart catheterization 2 YR AGO, PT REPORTS HEART CATH - FAST HEART BEAT...NO FINDINGS ([facility]) Family History Other No pertinent family history Social History Smoking Status: Former smoker Tobacco Type: Cigarettes Cigarettes Per Day: 20-40; Second Hand Exposure: Yes; Hx Alcohol Use: No Hx Substance Use: No Preferred Language: Chadian Communication Ability: Effective Excel Specialist Required: No Beliefs That Will Affect Care: None marital status: Current Living Situation: Spouse current occupational 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 Feels Safe at Home: Yes Assistive Devices: Glasses Review of Systems A total of 10 systems reviewed and were otherwise negative Physical Exam Vital Signs Vital Signs - 24 hr 04/25/20 23:24 04/26/20 01:08 Temperature 36.6 C Temperature Source Temporal Artery Scan Pulse Rate 73 Pulse Rate [Right Finger] 68 Respiratory Rate 18 18 Respiratory Effort / Characteristics Non-Labored Spontaneous Respiratory Depth Normal Respiratory Pattern Regular Blood Pressure 122/78 Blood Pressure [Right Arm] 137/83 Blood Pressure Mean 92 Blood Pressure Mean [Right Arm] 101 Blood Pressure Position [Right Arm] Lying Pulse Oximetry 96 96 Oxygen Delivery Method Room Air Room Air Sepsis Recent Fever Within 48 Hours No Sepsis New/Unexplained Change in Mental Status N/A Sepsis Action Taken by Nursing No Action Required VITAL SIGNS - Vital signs and nursing notes were reviewed. Stable and afebrile. GENERAL - 55-year-old male appearing his stated age who is in no acute distress. Communicates well with provider and answers questions appropriately. SKIN -the patient has erythema overlying the left and right feet. Right foot is much more erythematous and edematous compared to the left. There is yellowish serous fluid draining from the right foot mixed with a scant amount of blood. There is excoriation over the plantar aspect of the midfoot as well as the dorsum. There is also granulation tissue with a beefy red appearance to the interdigital aspect of the first and second toe that tracks proximally to the dorsum of the foot and a scab-like appearance. HEAD - NC/AT. LUNGS - Chest wall symmetric without accessory muscle use, intercostals retractions, or central cyanosis. Normal vesicular breath sounds CTA B/L. No wheezes, rales, or rhonchi appreciated. CARDIAC - RRR with S1/S2. No murmur, rubs, or gallops appreciated. EXTREMITIES - No clubbing or peripheral cyanosis. No pretibial edema present. Skin as above. No bony deformity. +5/5 strength noted in UE/LE bilaterally. NEUROLOGIC - Cranial nerves II through XII grossly intact. Sensory intact to light touch throughout. PSYCH - A&O, and cooperates fully with examiner. Pt is very pleasant and interacts well with examiner. Course Administered Medications Vancomycin HCl 1,750 mg/ (Sodium Chloride) 535 mls @ 200 mls/hr IV TODAY@0430 [facility] Stop: 04/26/20 07:11 Last Admin: 04/26/20 04:24 Dose: 200 mls/hr Documented by: [id number] Discontinued Medications Ceftriaxone Sodium (Rocephin) 1,000 mg in 50 mls @ 100 mls/hr IV NOW [facility] Stop: 04/26/20 01:33 Last Infusion: 04/26/20 01:47 Dose: 0 mls/hr Documented by: [id number] Admin: 04/26/20 01:08 Dose: 100 mls/hr Documented by: [id number] Medical Decision Making Laboratory Data Result diagrams: 04/25/20 23:51 04/25/20 23:51 Lab Results 04/25/20 04/25/20 04/25/20 Range/Units 23:51 23:51 23:51 WBC 6.49 (4.8-10.8) K/uL RBC 4.74 (4.7-6.1) M/uL Hgb 14.4 (14.0-18.0) g/dL Hct 43.3 (42-52) % MCV 91.4 (80-100) fL MCH 30.4 (25-34) pg MCHC 33.3 (32-36) g/dL RDW Std Deviation 44.5 (36.4-46.3) fL RDW Coeff of Chad 13.4 (11.5-14.5) % Plt Count 218 (130-400) K/uL MPV 10.0 (7.4-10.4) fL Immature Gran % (Auto) 0.2 % Neut % (Auto) 48.0 % Lymph % (Auto) 30.7 % [place] % (Auto) 9.6 % Eos % (Auto) 10.6 % Baso % (Auto) 0.9 % Neut # (Auto) 3.12 (1.4-6.5) K/uL Lymph # (Auto) 1.99 (1.2-3.4) K/uL [place] # (Auto) 0.62 H (0.11-0.59) K/uL Eos # (Auto) 0.69 H (0-0.5) K/uL Baso # (Auto) 0.06 (0-0.2) K/uL Immature Gran # (Auto) 0.01 (0.00-0.02) K/uL ESR (0-14) mm/hr Sodium 138 (136-145) mmol/L Potassium 3.8 (3.5-5.1) mmol/L Chloride 109 H (98-107) mmol/L Carbon Dioxide 27 (21-32) mmol/L Anion Gap 2.0 L (3-11) BUN 19 H (7-18) mg/dl Creatinine 1.13 (0.6-1.4) mg/dl Est Cr Clr Drug Dosing 82.0 ml/min Est GFR ( Amer) 84.3 Est GFR (Non-Af Amer) 72.8 BUN/Creatinine Ratio 16.6 (10-20) Glucose 89 (70-99) mg/dl Lactate (0.4-2.0) mmol/L Calcium 8.8 (8.5-10.1) mg/dl Total Bilirubin 0.3 (0.2-1) mg/dl AST 28 (15-37) U/L ALT 37 (12-78) U/L Alkaline Phosphatase 151 H (45-117) U/L C-Reactive Protein 0.77 H (0-0.29) mg/dl Total Protein 7.0 (6.4-8.2) gm/dl Albumin 3.5 (3.4-5.0) gm/dl Globulin 3.5 (2.5-4.0) gm/dl Albumin/Globulin Ratio 1.0 (0.9-2) Procalcitonin < 0.05 (0-0.5) ng/ml 04/25/20 04/25/20 Range/Units 23:51 23:51 WBC (4.8-10.8) K/uL RBC (4.7-6.1) M/uL Hgb (14.0-18.0) g/dL Hct (42-52) % MCV (80-100) fL MCH (25-34) pg MCHC (32-36) g/dL RDW Std Deviation (36.4-46.3) fL RDW Coeff of Chad (11.5-14.5) % Plt Count (130-400) K/uL MPV (7.4-10.4) fL Immature Gran % (Auto) % Neut % (Auto) % Lymph % (Auto) % [place] % (Auto) % Eos % (Auto) % Baso % (Auto) % Neut # (Auto) (1.4-6.5) K/uL Lymph # (Auto) (1.2-3.4) K/uL [place] # (Auto) (0.11-0.59) K/uL Eos # (Auto) (0-0.5) K/uL Baso # (Auto) (0-0.2) K/uL Immature Gran # (Auto) (0.00-0.02) K/uL ESR 12 (0-14) mm/hr Sodium (136-145) mmol/L Potassium (3.5-5.1) mmol/L Chloride (98-107) mmol/L Carbon Dioxide (21-32) mmol/L Anion Gap (3-11) BUN (7-18) mg/dl Creatinine (0.6-1.4) mg/dl Est Cr Clr Drug Dosing ml/min Est GFR ( Amer) Est GFR (Non-Af Amer) BUN/Creatinine Ratio (10-20) Glucose (70-99) mg/dl Lactate 1.0 (0.4-2.0) mmol/L Calcium (8.5-10.1) mg/dl Total Bilirubin (0.2-1) mg/dl AST (15-37) U/L ALT (12-78) U/L Alkaline Phosphatase (45-117) U/L C-Reactive Protein (0-0.29) mg/dl Total Protein (6.4-8.2) gm/dl Albumin (3.4-5.0) gm/dl Globulin (2.5-4.0) gm/dl Albumin/Globulin Ratio (0.9-2) Procalcitonin (0-0.5) ng/ml MDM Narrative Patient was seen and evaluated as above in room C6. Review was performed of nursing notes and vital signs. I did review pertinent previous visits and patient history. After obtaining a thorough history and physical examination the above work up was performed. He presents to us today with right greater than left lower extremity erythema. I reviewed his previous visit. The patient likely began with contact dermatitis versus a component of fungal infection that caused the skin to be dry, cracked and then likely has now developed a secondary bacterial infection on the right. He is currently on a regimen of Keflex, Bactrim and clotrimazole. He has been compliant. The patient notes a significant worsening of symptoms. I did review pictures from his previous visit that he has on his phone in regard to the way his foot looked and there is significant worsening of the right foot in regard to erythema and edema. For this reason I did elect to obtain IV labs. He was given IV Rocephin. There is no leukocytosis or anemia. No emergent metabolic disturbance. Mild elevation of CRP at 0.77. Pro-Keshav and Covid testing negative. Lactic negative. Blood cultures pending. There is really no cultural purulence from the foot. I do believe that he would benefit from inpatient management. Please refer to fur ther documentation regarding his stay. Case was discussed with the attending physician. GCS: 15 In the evaluation and treatment of this patient the following differential diagnoses were entertained: Sepsis, cellulitis, contact dermatitis, athlete's foot, DVT, vasculitis, among others. Impression & Plan Cellulitis of foot, right Discharge Plan Visit Data Chief Complaint: Infection Stated Complaint: RIGHT FOOT PAIN ED Provider: Marbin Bran ED Midlevel Provider: Dao Cook Discharge Problem: Cellulitis of foot, right Patient Disposition: Admitted As Inpatient Condition: Good Discharge Instructions Interventions: ED Discharge Assessment Last Done: 04/26/20 03:27
[2020-04-26 00:13] LABS: Basophils # (auto) 0.06 K/uL (0-0.2); Basophils % (auto) 0.9 %; Eosinophils # (auto) 0.69 K/uL (0-0.5); Eosinophils % (auto) 10.6 %; Hematocrit (blood only) 43.3 % (42-52); Hemoglobin 14.4 g/dL (14.0-18.0); Immature Granulocytes # (auto) 0.01 K/uL (0.00-0.02); Immature Granulocytes % (auto) 0.2 %; Lymphocytes # (auto) 1.99 K/uL (1.2-3.4); Lymphocytes % (auto) 30.7 %; Mean Corpuscular Hemoglobin 30.4 pg (25-34); Mean Corpuscular Hgb Conc 33.3 g/dL (32-36); Mean Corpuscular Volume 91.4 fL (80-100); Monocytes # (auto) 0.62 K/uL (0.11-0.59); Monocytes % (auto) 9.6 %; Neutrophils # (auto) 3.12 K/uL (1.4-6.5); Platelet Count 218 K/uL (130-400); RDW Coefficient of Variation 13.4 % (11.5-14.5); RDW Standard Deviation 44.5 fL (36.4-46.3); Red Blood Count 4.74 M/uL (4.7-6.1); White Blood Count 6.49 K/uL (4.8-10.8)
[2020-04-26 00:29] LABS: Albumin Level 3.5 gm/dl (3.4-5.0); BUN Creatinine Ratio 16.6 (10-20); Calcium 8.8 mg/dl (8.5-10.1); Est GFR (African American) 84.3; Est GFR (Non-African American) 72.8; Potassium 3.8 mmol/L (3.5-5.1)
[2020-04-26 00:32] LABS: Bilirubin,Total 0.3 mg/dl (0.2-1); C Reactive Protein 0.77 mg/dl (0-0.29); Globulin 3.5 gm/dl (2.5-4.0)
[2020-04-26] MEDS ORDERED: cefTRIAXone SODIUM 1,000 MG/50 ML BAG IV STA (01:04)
--- NOTE | 2020-04-26 02:30 | History & Physical Report ---
Date of Service April 26, 2020 Assessment & Plan (1) Cellulitis of both feet: Cellulitis of bilateral feet, right greater than left- Placed on vancomycin IV and ceftriaxone IV. Follow clinical examination. Hold Keflex and Bactrim. Present on Admission?: Yes (2) COPD, group D, by GOLD 2017 classification: Continue usual inhalers albuterol sulfate as needed and fluticasone propionate-salmeterol Present on Admission?: Yes (3) Fast heart beat: Continue metoprolol succinate Present on Admission?: Yes History of Present Illness Chief Complaint: The patient presents to the emergency department with complaint of worsening right foot pain after having been seen in the emergency department 2 evenings ago and placed on Keflex and Bactrim for lower extremity cellulitis involving the feet Primary Care Provider: Mayuri Mayers MD The patient is a 55-year-old male with a past medical history including polycythemia secondary to hypoxia, COPD group D, pulmonary nodule, environmental allergies, nocturnal hypoxia, hypertension and pulmonary emphysema. Patient reports that he had initially purchased new boots 2 weeks ago, that were the same size and type that he usually wears, along with a new pair of socks, and began to note a few days later a patch of redness on the dorsum of both feet. He was seen in the emergency department 2 evenings ago, was diagnosed with bilateral lower extremity cellulitis, right worse than left, started on Keflex and Bactrim. Since that time, his redness, swelling and pain has worsened, a gain right greater than left. Allergies Allergy/AdvReac Type Severity Reaction Status Date / Time No Known Allergies Allergy Unknown Verified 04/25/20 23:35 Home Medications Medication Instructions Recorded Confirmed Type metoprolol succinate [Toprol XL] 25 mg PO QAM 01/18/18 04/25/20 History albuterol sulfate 90 mcg/actuation 2 puff INHALATION Q4 PRN #6.7 gm 01/25/20 04/25/20 Rx aerosol inhaler cephalexin [Keflex] 500 mg PO TID 10 Days #30 cap 04/23/20 04/25/20 Rx clotrimazole [Lotrimin AF 1 applic TOPICAL TID #14 g 04/23/20 04/25/20 Rx (clotrimazole)] fluticasone propion-salmeterol 1 ea INH BID 04/23/20 04/25/20 History sulfamethoxazole-trimethoprim 1 tab PO BID 10 Days #20 tab 04/23/20 04/25/20 Rx [Bactrim DS] Past Med/Surg History Medical History Back problem HX OF BACK BROKEN - NO SURGERY, HEALED ON OWN COPD (chronic obstructive pulmonary disease) COPD, group D, by GOLD 2017 classification Fast heart beat History of COPD History of fracture HX OF JAW BROKEN, WIRED, NO CURRENT HARDWARE, DENIES PROBLEMS WITH JAW MOVEMENT Mini stroke ? HX OF, POSSIBLE HX OF MENTIONED 15 YR AGO TO PT - NO RESIDUAL EFFECTS Polycythemia secondary to hypoxia Surgical History History of hand surgery 12/06/18 - FOR INFECTION OF RIGHT POINTER FINGER - HEALED History of left heart catheterization 2 YR AGO, PT REPORTS HEART CATH - FAST HEART BEAT...NO FINDINGS ([facility] [place]) Family History Other No pertinent family history Social History Smoking Status: Former smoker Tobacco Type: Cigarettes Cigarettes Per Day: 20-40; Second Hand Exposure: Yes; Hx Alcohol Use: Yes Alcohol type: beer Hx Substance Use: No Preferred Language: Estonian Communication Ability: Effective Composition Professor Required: No Beliefs That Will Affect Care: None marital status: Current Living Situation: Family 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 occupational 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 Feels Safe at Home: Yes Assistive Devices: Contacts Review of Systems Review of Systems: The patient denies chest pain, palpitations, shortness of breath, dyspnea on exertion, cough, sore throat, fevers, chills, sweats, weight change, fatigue, nausea, vomiting, diarrhea , constipation, abdominal pain, pelvic pain, blood in urine or stool, dysuria, urinary frequency or urgency, lightheadedness, dizziness, headache, memory loss, loss of consciousness, rash, abnormal bruising or bleeding, imbalance, focal or generalized weakness, numbness or tingling in arms, generalized arthralgias or myalgias, back or neck pain, or night sweats. The review of systems is otherwise negative other than for that already noted above, and at least 10 systems have been reviewed. Physical Exam Physical Exam: The patient is awake, alert and oriented 3, well developed and well nourished, normocephalic and atraumatic, lying in bed and in no acute distress. HEENT--PERRL, EOMI, mucous membranes and oropharynx normal. Neck--supple. No JVD. No bruits. Thyroid normal, trachea midline, no adenopathy. Heart--normal S1 and S2. No murmurs, rubs or gallops. Lungs--clear bilaterally, no respiratory distress, no accessory muscle use. Abdomen--normal bowel sounds and soft. Nontender. Nondistended, no hernias or masses, no organomegaly. Extremities--bilateral erythema, edema and warmth, right greater than left feet along dorsal surfaces. Dermatologic--see above Neurologic--cranial nerves II through XII grossly intact. Rheumatologic--normal range of motion. Psychiatric--normal affect. Results & Data Results & Data ([facility]) Vital Signs (Past 12 Hours) Vital Signs Temp Pulse Pulse Resp BP BP Pulse Ox 04/26/20 01:08 68 18 137/83 96 04/25/20 23:24 97.9 F 73 18 122/78 96 Laboratory Results Laboratory Results WBC 6.49 K/uL (4.8-10.8) 04/25/20 23:51 RBC 4.74 M/uL (4.7-6.1) 04/25/20 23:51 Hgb 14.4 g/dL (14.0-18.0) 04/25/20 23:51 Hct 43.3 % (42-52) 04/25/20 23:51 MCV 91.4 fL (80-100) 04/25/20 23:51 MCH 30.4 pg (25-34) 04/25/20 23:51 MCHC 33.3 g/dL (32-36) 04/25/20 23:51 RDW Std Deviation 44.5 fL (36.4-46.3) 04/25/20 23:51 RDW Coeff of Chad 13.4 % (11.5-14.5) 04/25/20 23:51 Plt Count 218 K/uL (130-400) 04/25/20 23:51 MPV 10.0 fL (7.4-10.4) 04/25/20 23:51 Immature Gran % (Auto) 0.2 % 04/25/20 23:51 Neut % (Auto) 48.0 % 04/25/20 23:51 Lymph % (Auto) 30.7 % 04/25/20 23:51 Eddy % (Auto) 9.6 % 04/25/20 23:51 Eos % (Auto) 10.6 % 04/25/20 23:51 Baso % (Auto) 0.9 % 04/25/20 23:51 Neut # (Auto) 3.12 K/uL (1.4-6.5) 04/25/20 23:51 Lymph # (Auto) 1.99 K/uL (1.2-3.4) 04/25/20 23:51 Eddy # (Auto) 0.62 K/uL (0.11-0.59) H 04/25/20 23:51 Eos # (Auto) 0.69 K/uL (0-0.5) H 04/25/20 23:51 Baso # (Auto) 0.06 K/uL (0-0.2) 04/25/20 23:51 Immature Gran # (Auto) 0.01 K/uL (0.00-0.02) 04/25/20 23:51 ESR 12 mm/hr (0-14) 04/25/20 23:51 Sodium 138 mmol/L (136-145) 04/25/20 23:51 Potassium 3.8 mmol/L (3.5-5.1) 04/25/20 23:51 Chloride 109 mmol/L (98-107) H 04/25/20 23:51 Carbon Dioxide 27 mmol/L (21-32) 04/25/20 23:51 Anion Gap 2.0 (3-11) L 04/25/20 23:51 BUN 19 mg/dl (7-18) H 04/25/20 23:51 Creatinine 1.13 mg/dl (0.6-1.4) 04/25/20 23:51 Est Cr Clr Drug Dosing 82.0 ml/min 04/25/20 23:51 Est GFR ( Amer) 84.3 04/25/20 23:51 Est GFR (Non-Af Amer) 72.8 04/25/20 23:51 BUN/Creatinine Ratio 16.6 (10-20) 04/25/20 23:51 Glucose 89 mg/dl (70-99) 04/25/20 23:51 Lactate 1.0 mmol/L (0.4-2.0) 04/25/20 23:51 Calcium 8.8 mg/dl (8.5-10.1) 04/25/20 23:51 Total Bilirubin 0.3 mg/dl (0.2-1) 04/25/20 23:51 AST 28 U/L (15-37) 04/25/20 23:51 ALT 37 U/L (12-78) 04/25/20 23:51 Alkaline Phosphatase 151 U/L (45-117) H 04/25/20 23:51 C-Reactive Protein 0.77 mg/dl (0-0.29) H 04/25/20 23:51 Total Protein 7.0 gm/dl (6.4-8.2) 04/25/20 23:51 Albumin 3.5 gm/dl (3.4-5.0) 04/25/20 23:51 Globulin 3.5 gm/dl (2.5-4.0) 04/25/20 23:51 Albumin/Globulin Ratio 1.0 (0.9-2) 04/25/20 23:51 Procalcitonin < 0.05 ng/ml (0-0.5) 04/25/20 23:51 COVID-19 Eval Order Covid19 IDNow [facility] 04/26/20 01:55 Code Status & VTE Plan Code Status Full code VTE Prophylaxis Plan VTE Prophylaxis will be ordered: Yes PG Care Time/CCT Total # of Minutes Spent Total Time Spent with Patient: Total time spent is greater than 50% in coordination of care (as documented) at patient's floor/unit and/or counseling patient: Coding Level of Care Code 10689 Initial Inpt Care Lvl 2 Diagnoses Cellulitis of both feet L03.115; L03.116 COPD, group D, by GOLD 2017 classification J44.9 Fast heart beat R00.0
[2020-04-26] MEDS ORDERED: VANCOMYCIN HCL 1,000 MG in SODIUM CHLORIDE 0.9% 250 ML IV SCH (03:38)
[2020-04-26] MEDS ORDERED: ONDANSETRON INJ 2 MG/ML 2 ML VIAL IV PRN (03:38)
[2020-04-26] MEDS ORDERED: VANCOMYCIN CONSULT ACTIVE PRN (03:38)
[2020-04-26] MEDS ORDERED: MAGNESIUM HYDROXIDE SUSP 30 ML UDC PO PRN (03:38)
[2020-04-26] MEDS ORDERED: ACETAMINOPHEN 325 MG TAB PO PRN (03:38)
[2020-04-26] MEDS ORDERED: ALUMINUM/MAGNESIUM SUSP 30 ML UDC PO PRN (03:38)
[2020-04-26] MEDS ORDERED: VANCOMYCIN HCL 1,750 MG in SODIUM CHLORIDE 0.9% 500 ML IV SCH (04:30)
[2020-04-26] MEDS: METOPROLOL SUCC 25MG EXT REL TAB PO SCH (08:55)
--- NOTE | 2020-04-26 09:17 | Pharmacy Report ---
Pharmacy Abx Initial Consult - Date of Service April 26, 2020 - Pharmacy Dosing Scope Date of Consult: 04/26/20 Consultation requested by: Dr. Ramirez Pharmacy is consulted to initiate Vancomycin IV dosing therapy, order appropriate labs and adjust drug dose/frequency. - Subjective The patient is a 55 year old M admitted on 04/26/20 01:34. - Objective Height: 6 ft 4 in Weight: 78.1 kg Vital Signs (Past 12hrs): Vital Signs Temp Pulse Pulse Resp BP BP Pulse Ox 04/26/20 07:38 36.8 C 83 16 121/68 92 04/26/20 03:30 36.3 C L 81 18 153/76 H 95 04/26/20 03:27 86 18 160/79 H 95 04/26/20 01:08 68 18 137/83 96 04/25/20 23:24 36.6 C 73 18 122/78 96 Lab Results (24hrs): Laboratory Tests (24 Hours) 04/25/20 04/25/20 04/25/20 23:51 23:51 23:51 WBC Neut # (Auto) ESR 12 Creatinine 1.13 Est Cr Clr Drug Dosing 82.0 C-Reactive Protein 0.77 H Procalcitonin < 0.05 04/25/20 23:51 WBC 6.49 Neut # (Auto) 3.12 ESR Creatinine Est Cr Clr Drug Dosing C-Reactive Protein Procalcitonin Micro Results: 04/25/20 23:51 Aerobic Blood Culture - Pending Blood Anaerobic Blood Culture - Pending 04/26/20 00:07 Aerobic Blood Culture - Pending Blood Anaerobic Blood Culture - Pending - Risk Factors for Resistance * 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 * Patient bought new boots 2 weeks ago and since then has developed patches of redness on the bottom of both feet. He was seen in the emergency department on 04/23/20 and was diagnosed with bilateral lower extremity cellulitis (R > L) and started on Keflex + Bactrim DS. Since then, the redness/pain/swelling has worsened (R > L). * Upon admission: patient is afebrile, no leukocytosis, SCr 1.13, ESR normal and CRP slightly elevated * He has been started on vancomycin and ceftriaxone. Cultures are pending. Plan Vancomycin + Ceftriaxone for treatment of bilateral lower extremity cellulitis Vancomycin IV * Patient meets criteria for vancomycin AUC dosing nomogram * AUC/ILENE is the preferred PK/PD target for vancomycin * Target AUC/ILENE = 400-600 * AUC guided dosing is effective and associated with decreased risk of nephrotoxicity * Loading dose = 1750 mg (22.5 mg/kg) IV x 1 * Maintenance dose = 1500 mg (20 mg/kg) IV every 12 hours * Will order a trough on 04/27/20 to ensure Target AUC/ILENE is being met Ceftriaxone * 2000 mg IV every 24 hours Pharmacy will continue to follow and will adjust dose/frequency as necessary. Thank you.
--- NOTE | 2020-04-26 10:29 | Hospitalist Progress Note ---
Date of Service April 26, 2020 Assessment & Plan (1) Vasculitis: 55 yo M Hx COPD/emphysema (former smoker), polycythemia, tachycardia on daily metoprolol therapy presented with R>L foot erythema, swelling, and ulcerations, and was admitted for suspected cellulitis. Vasculitis vs. bilateral LE cellulitis: - Patient was initially on Keflex/Bactrim starting 04/22 for suspected cellulitis and despite this the patient's ulcerations and foot swelling/pain have worsened. - No leukocytosis, blood cultures collected and negative to date. No history of DM2 or PAD that would put patient at increased risk of cellulitis. Bilateral nature and no improvement on oral Abx also inconsistent with cellulitis. - Physical exam not consistent with cellulitis given bilateral nature and now with seemingly a rash over arms and trunk as well. - Most likely suspect vasculitis of unknown origin vs. other autoimmune/allergic source of ulcerations, swelling, and rash. - Will transition off of antibiotics, and instead start high dose steroids (methylprednisolone 60mg IV daily), with Rheumatology follow up outpatient. - Will continue steroid treatment pending improvement overnight into tomorrow morning. Will also follow CBC and blood cultures to ensure no systemic infection. - Rheumatologic panel of labwork ordered to include GEOFF 12 panel, ESR, ANCA with reflex. COPD/emphysema: - History of, on Incruse and fluticasone/salmeterol inhalers at home daily; continue these. - Without respiratory concerns this admission and saturating well on room air. - Albuterol prn shortness of breath/wheezing. Tachycardia: - History of, on daily metoprolol therapy. - HR well controlled this admission, continue Toprol 25mg daily. Code Status: FULL CODE Diet: Regular DVT ppx: patient able to ambulate independently, ambulate as can tolerate, and SCDs while in bed (2) Polycythemia secondary to hypoxia: (3) COPD, group D, by GOLD 2017 classification: (4) Pulmonary emphysema: Admission and Anticipated Discharge Date Admission Date: April 26, 2020 Supervising Physician Co-Signing Physician Notes I personally examined the patient and verified all mike points of history and exam, discussed case, and agree with decision making with Dr Rey. feet painful and swollen. no f/c/s. slowly worsening over a few weeks vitals noted nad heent nc at mmm breathing unlabored. b/l feet with papular/plaque rash and shallow ulcerations and scabs, also plaques on belly w small papules, smaller papular lesions on arms foot swelling/pain/rash -does not appear cw infection - stop abx for now and follow -seems more immunologic ?vasculitis - labs/steroids, follow otherwise as above Subjective Patient without acute events overnight. Does not endorse any change in right foot swelling or redness despite IV antibiotics overnight. Does endorse some new rash on arms and trunk this morning. Mild pruritus of rash on arms and legs, and on feet. No headache or dizziness, no shortness of breath. Only new contacts he reports over the last two weeks are a new pair of socks/boots he wears at work, and one time use of a fabric softener in his laundry (both over a week ago). Review of Systems Review of Systems: All systems reviewed & are unremarkable except as noted in HPI & below Constitutional: no fever, no chills and no malaise Respiratory: no cough and no dyspnea Cardiovascular: no chest pain, no palpitations and no edema Gastrointestinal: no abdominal pain, no constipation and no diarrhea/loose stools Physical Exam Constitutional: WD/WN, vitals as above ENMT: external ear and nose normal, oropharynx normal no oral lesions noted Neck: normal visual inspection Cardiovascular: RRR, no murmur, no edema Gastrointestinal (Abdomen): normal bowel sounds, soft, nontender, no hepatosplenomegaly Skin: Patient with maculopapular rash over bilateral upper and lower extremities, trunk. With significant swelling over toes of right foot, dorsal foot swelling. Erythema to the level of the ankle on right foot. 5x5cm shallow ulceration noted on dorsal and plantar side of right foot, and 5x5cm shallow ulceration on dorsal aspect of left foot with surrounding erythema. Clear drainage from right dorsal ulceration. Psychiatric: A+Ox3, euthymic affect Lymphatic: no cervical lymphadenopathy Results & Data Results & Data ([facility]) Vital Signs (Past 12 Hours) Vital Signs Temp Pulse Pulse Resp BP BP Pulse Ox 04/26/20 07:38 36.8 C 83 16 121/68 92 04/26/20 03:30 36.3 C L 81 18 153/76 H 95 04/26/20 03:27 86 18 160/79 H 95 04/26/20 01:08 68 18 137/83 96 04/25/20 23:24 36.6 C 73 18 122/78 96 Resident Activity Tracking Resident Involvement: Resident Care Provided Care Provided: Adult Hospital Medicine (1) Pulmonary emphysema Emphysema type: unspecified Qualified Code(s): J43.9 - Emphysema, unspecified
[2020-04-26] MEDS: UMECLIDINIUM BROMIDE 62.5MCG/BLISTER 7 PUFFS/INHALER INH SCH (10:38)
[2020-04-26] MEDS: FLUTICASONE/VILANTEROL 100/25MCG 14 PUFFS/INHALER INH SCH (10:39)
--- NOTE | 2020-04-26 11:43 | XRay Report ---
XR foot RT min 3V routine CLINICAL HISTORY: Right foot swelling. Possible cellulitis. Possible osteomyelitis COMPARISON: None. DISCUSSION: No acute fractures are visualized. There is no gas within the soft tissues. There are no erosive or destructive changes. IMPRESSION: 1. No fractures identified 2. No conventional radiographic evidence of osteomyelitis ACT 112: Negative or not required by law. Electronically signed by: Chris Torres M.D. 04/26/2020 11:42 AM
[2020-04-26] MEDS ORDERED: methylPREDNISolone 60 MG in SYRINGE 0 ML IV SCH (12:45)
[2020-04-26] MEDS: methylPREDNISolone 60 MG in SYRINGE 0 ML IV SCH (13:50)
[2020-04-26] MEDS: diphenhydrAMINE Capsule 25 MG CAP PO PRN ×2 (14:51→23:32)
[2020-04-26] MEDS ORDERED: VANCOMYCIN HCL 1,500 MG in SODIUM CHLORIDE 0.9% 500 ML IV SCH (16:00)
--- NOTE | 2020-04-26 18:06 | Billing Data ---
Date of Service April 26, 2020 Coding Level of Care Code 71875 Subseq Hosp Care Lvl 3
[2020-04-27] MEDS ORDERED: cefTRIAXone SODIUM 2,000 MG in DEXTROSE 5% 50 ML IV SCH (01:00)
[2020-04-27 07:05] LABS: Hematocrit (blood only) 42.9 % (42-52); Hemoglobin 14.5 g/dL (14.0-18.0); Mean Corpuscular Hemoglobin 30.9 pg (25-34); Mean Corpuscular Hgb Conc 33.8 g/dL (32-36); Mean Corpuscular Volume 91.3 fL (80-100); Mean Platelet Volume 10.4 fL (7.4-10.4); Platelet Count 270 K/uL (130-400); RDW Coefficient of Variation 13.2 % (11.5-14.5); RDW Standard Deviation 44.3 fL (36.4-46.3); White Blood Count 6.13 K/uL (4.8-10.8)
[2020-04-27 07:20] LABS: BUN Creatinine Ratio 17.3 (10-20); Calcium 8.8 mg/dl (8.5-10.1); Creatinine Clr Calc Pharmacy 88.7 ml/min; Est GFR (African American) 93.2; Est GFR (Non-African American) 80.5; Potassium 4.3 mmol/L (3.5-5.1)
[2020-04-27] MEDS: FLUTICASONE/VILANTEROL 100/25MCG 14 PUFFS/INHALER INH SCH (08:44)
[2020-04-27] MEDS: methylPREDNISolone 60 MG in SYRINGE 0 ML IV SCH (08:45)
[2020-04-27] MEDS: UMECLIDINIUM BROMIDE 62.5MCG/BLISTER 7 PUFFS/INHALER INH SCH (08:45)
[2020-04-27] MEDS: METOPROLOL SUCC 25MG EXT REL TAB PO SCH (08:46)
--- NOTE | 2020-04-27 09:52 | Hospitalist Progress Note ---
Date of Service April 27, 2020 Assessment & Plan (1) Skin lesion of foot: 55 yo M Hx COPD/emphysema (former smoker), polycythemia, tachycardia on daily metoprolol therapy presented with R>L foot erythema, swelling, and ulcerations, and was admitted for suspected cellulitis. Skin Lesion of Bilateral Feet: Contact Dermatitis vs. bilateral LE cellulitis: - Failed outpatient Keflex/Bactrim starting 04/22 for suspected cellulitis and despite this the patient's ulcerations and foot swelling/pain worsened. - No leukocytosis, blood cultures collected and negative to date. No history of DM2, PAD, recent steroid use that would put patient at increased risk of cellulitis. Bilateral nature and no improvement on oral Abx also inconsistent with cellulitis. - Physical exam not consistent with cellulitis given bilateral nature. Seems symmetrical bilateral with respect to inciting dorsal lesion that appears more consistent with a Contact Dermatitis with possible surrounding ID reaction. - Previous differential included vasculitis of unknown origin vs. other autoimmune/allergic source of ulcerations, swelling, and rash. However doubt Vasculitis as ESR was WNL and CRP was only mildly elevated. - On 04/26/20 was transitioned off of antibiotics, and started high dose steroids (methylprednisolone 60mg IV daily), with Rheumatology follow up outpatient for treatment for vasculitis. Also, had Rheumatologic panel of labwork ordered to include GEOFF 12 panel, ESR, ANCA with reflex. - Will continue steroid treatment pending improvement overnight into tomorrow morning. Will also follow blood cultures to ensure no systemic infection but doubt since not having any systemic symptoms. - Has strong pedal pulses do not suspect vascular disease. - He notes using a new pair of socks that might have had metal component prior to onset. He might have had a metal allergy from footwear. Treatment for this will be steroids. Will transition from IV steroids to Prednisone 60mg PO with most likely extended taper on outpatient and then would recommend patch testing for allergic causes. - Contine with wound care - Has mild impetigo and even though no gross infection, with wounds could progress to cause complication. Thus will start on Keflex 500mg TID. - Dermatology consult placed for evaluation and recommendations. 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 Appears resolving, follow for return incase Keflex was the culprit and not Bactrim. Perhaps he is allergy to sulfa drugs such as Bactrim. COPD/emphysema: - History of, on Incruse and fluticasone/salmeterol inhalers at home daily; continue these. - Without respiratory concerns this admission and saturating well on room air. - Albuterol prn shortness of breath/wheezing. Tachycardia: - Resolved - History of, on daily metoprolol therapy. - HR well controlled this admission, continue Toprol 25mg daily. Code Status: FULL CODE Diet: Regular DVT ppx: patient able to ambulate independently, ambulate as can tolerate, and SCDs while in bed (2) COPD, group D, by GOLD 2017 classification: (3) Pulmonary emphysema: (4) Polycythemia secondary to hypoxia: Admission and Anticipated Discharge Date Admission Date: April 26, 2020 Supervising Physician Co-Signing Physician Notes I personally examined the patient and verified all mike points of history and exam, discussed case, and agree with decision making with Dr Wright. Patient has noted some interval improvement since yesterday. He is now able to walk on the lateral aspect of his feet without as much discomfort; he actually feels that the swelling is decreased compared to yesterday. Exam Blood pressure 110/75, heart rate 70, respiratory rate 16, temperature 36.5 He has remained afebrile during his entire hospitalization. Upon examination, he is pleasant alert. Cardiovascular regular rate and rhythm. No murmurs auscultated Both feet are wrapped; the wrapping is removed. The right foot is still edematous; there are blistered areas on both the plantar and dorsum of the foot, small vesicles with some erythema localized to the vesicles. The left foot has a skin breakdown on the dorsum only. There is some hint at clear to slightly yellow fluid from both feet bilaterally. Data White blood cell count 6.13. BMP is unremarkable with preserved renal function. ESR from yesterday was normal at 14; CRP from visit on 04/25 was 0.77. Impression Favor a contact/irritant dermatitis, perhaps from his new boots or "heated" socks. He was going to try to see if he could find out the name of the socks to see if we identify a potential allergen. Doubt vasculitis with normal inflammatory markers; doubt cellulitis given overall appearance (lack of confluent erythema), symmetrical appearance, normal white blood cell count, and lack of fever. Cannot exclude a secondary infection given the open areas on the feet, but again doubt that this is the primary process. 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 Plan Continue steroids, could probably transition to oral prednisone Ceftriaxone and vancomycin were discontinued yesterday Keflex 500 mg three times daily, more for prophylaxis given the open areas on his feet Consult dermatology Subjective Mr. Carcamo notes mild improvement with pain. He notes that he has a diffuse extremity welt like rash that he notes started with outpatient abx. No acute events reported overnight. No fever, no chills, no chest pain, no shortness of breath. No numbness or decreased sensatiion to feet. Physical Exam Constitutional: WD/WN, vitals as above + thin, cooperative and comfortable Eyes: PERRL, conjunctivae normal, anicteric sclerae ENMT: external ear and nose normal, oropharynx normal Neck: normal visual inspection and trachea midline Respiratory: normal respiratory effort, lungs clear to auscultation Cardiovascular: Rate/Rhythm: regular rate and regular rhythm Musculoskeletal: Head/Neck/Chest: normocephalic and head atraumatic Skin: mild macular papular rash to upper extremities; none on back. Right foot with lesion to dorsum and plantar aspect with lesions that extends distally including the right dorsal 1-3 digits and extends to plantar 1-4 digits with mild honesycrusting with lesion have some mild serous drainage but mostly dry. Left foot only significant to lesion to dorsum of left foot that appears healing. No significant surrounding erythema or warmth. Neurologic: moves all extremities and awake Psychiatric: A+Ox3, euthymic affect Results & Data Results & Data ([facility]) Vital Signs (Past 12 Hours) Vital Signs Temp Pulse Resp BP Pulse Ox 04/27/20 07:15 36.5 C 70 16 110/75 94 04/26/20 23:02 36.6 C 80 16 115/68 92 Resident Activity Tracking Resident Involvement: Resident Care Provided Care Provided: Adult [facility] Medicine (1) Pulmonary emphysema Emphysema type: unspecified Qualified Code(s): J43.9 - Emphysema, unspecified
[2020-04-27] MEDS ORDERED: predniSONE 20 MG TAB PO SCH (10:00)
--- NOTE | 2020-04-27 12:49 | Dermatology Consultation ---
Date of Consultation April 27, 2020 Assessment & Plan (1) Contact dermatitis: Acute contact dermatitis (likely allergic) of the bilateral feet (R>L): - Most suspicious of his Muck boots based on the reported history. He plans to avoid wearing them in the future. - There may still be some coexisting superficial, secondary infection. With toe web involvement, gram negative organisms can sometimes be the culprit. I have taken a bacterial culture from the skin surface for further evaluation. - Agree with systemic steroids. If he can be discharged, then this can be transitioned to oral prednisone, but it should be tapered over at least 12-14 days to prevent rebound flaring. - Start betamethasone dipropionate 0.05% ointment mixed 1:1 with mupirocin 2% ointment applied to the areas of the feet twice daily x 2 weeks. - If patient is to be discharged, then I should see him in follow-up 1 week following discharge. Of note, I do not appreciate any definitive signs of vasculitis on exam today. Present on Admission?: Yes History of Present Illness Reason for Consultation: Rash on feet Requesting Physician: Dave Guardado DO Attending Physician: Dave Guardado DO History of Present Illness Patient is a 55-year-old male admitted to [facility] on 04/26/2020 for possible cellulitis on the bilateral feet. Patient, and his via the telephone, provide the history. He reports that about 3 weeks ago he obtained a new pair of Muck work boots. He has not worn Muck boots in the past. He also acquired a couple of new pairs of thermal socks. After wearing the Muck boots for about a week, he started to notice some areas of redness on the tops both feet. 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 When he returned home and took off his boots the redness had spread to involve areas of the toes. He also reports having some areas that appeared blistered. He denies significant itching at that time but reports that some areas were painful. He initially tried treating with Eucerin advanced repair cream, but this was not helpful. It did burn whenever he applied it. He did not try any other therapy at home. He states that he stopped wearing the Muck boots, but his swelling continued to worsen (R>L). On 04/23/2020 he presented to the [facility] ER and was given Bactrim DS twice daily x 10 days and Keflex 500 mg 3 x daily x 10 days for possible cellulitis. He was also advised to apply Lotrimin ointment 3 x daily. Patient returned home, but he did not get any better. He also started to develop some bruise like areas on the arms suspicious for possible vasculitis. He returned to [facility] yesterday and was admitted for possible worsening cellulitis. Since admission, he has been afebrile without leukocytosis. He was initially started on IV vancomycin and ceftriaxone, but this was discontinued yesterday due to concern for a possible contact dermatitis instead. He was started on methylprednisolone 60 mg IV daily. He reports that his swelling seems to be improving over the past 24 hours. He has not been using any topical therapy on the skin aside from a barrier cream that was given to him by the wound care nurse today. Blood cultures have not shown any growth. Right foot xray was negative for any signs of osteomyelitis. He is otherwise feeling well. No other skin complaints today. Allergies Allergy/AdvReac Type Severity Reaction Status Date / Time No Known Allergies Allergy Unknown Verified 04/25/20 23:35 Home Medications Medication Instructions Recorded Confirmed Type metoprolol succinate [Toprol XL] 25 mg PO QAM 01/18/18 04/25/20 History albuterol sulfate 90 mcg/actuation 2 puff INHALATION Q4 PRN #6.7 gm 01/25/20 04/25/20 Rx aerosol inhaler cephalexin [Keflex] 500 mg PO TID 10 Days #30 cap 04/23/20 04/25/20 Rx clotrimazole [Lotrimin AF 1 applic TOPICAL TID #14 g 04/23/20 04/25/20 Rx (clotrimazole)] fluticasone propion-salmeterol 1 ea INH BID 04/23/20 04/25/20 History sulfamethoxazole-trimethoprim 1 tab PO BID 10 Days #20 tab 04/23/20 04/25/20 Rx [Bactrim DS] Patient History Medical History (Updated 04/27/20 @ 12:58 by Grant Kirk MD) Back problem HX OF BACK BROKEN - NO SURGERY, HEALED ON OWN Contact dermatitis COPD (chronic obstructive pulmonary disease) COPD, group D, by GOLD 2017 classification Fast heart beat History of COPD History of fracture HX OF JAW BROKEN, WIRED, NO CURRENT HARDWARE, DENIES PROBLEMS WITH JAW MOVEMENT Mini stroke ? HX OF, POSSIBLE HX OF MENTIONED 15 YR AGO TO PT - NO RESIDUAL EFFECTS Polycythemia secondary to hypoxia Surgical History History of hand surgery 12/06/18 - FOR INFECTION OF RIGHT POINTER FINGER - HEALED History of left heart catheterization 2 YR AGO, PT REPORTS HEART CATH - FAST HEART BEAT...NO FINDINGS ([facility]) Family History Other No pertinent family history Social History Smoking Status: Former smoker Tobacco Type: Cigarettes Cigarettes Per Day: 20-40; Second Hand Exposure: Yes; Hx Alcohol Use: No Hx Substance Use: No Preferred Language: Divehi Communication Ability: Effective Head Screen Worker Required: No Beliefs That Will Affect Care: None marital status: Current Living Situation: Spouse current occupational 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 Feels Safe at Home: Yes Assistive Devices: Glasses Review of Systems Review of Systems: All systems reviewed & are unremarkable except as noted in HPI & below Constitutional: no fever, no chills, no sweats and no body aches Eyes: no eye pain Ear, Nose, Mouth, Throat: no mouth lesions Gastrointestinal: no nausea, no vomiting and no diarrhea/loose stools Integumentary: as per Subjective / HPI Physical Exam Physical Exam: General Appearance: Well Developed, Well Nourished and in no acute distress Alert, Oriented and Appropriate Skin Type: Skin Type: 2 Right Lower Extremity: erythematous, edematous, crusted plaques on the dorsal foot, toes +areas of resolving vesicles with desquamating scale/crusting on the plantar surface +edema of the toes with some superficial fissuring in the interdigital web spaces Left Lower Extremity: erythematous, edematous, crusted plaques on the dorsal foot, toes Right Upper Extremity: +xerosis Left Upper Extremity: +xerosis; few nonspecific purpuric macules on the mid lateral upper arm Nails: No abnormalities noted. Results & Data ([facility]) Vital Signs (Past 12 Hours) Vital Signs Temp Pulse Resp BP Pulse Ox 04/27/20 07:15 36.5 C 70 16 110/75 94 Laboratory Results Laboratory Results WBC 6.49 K/uL (4.8-10.8) 04/25/20 23:51 RBC 4.74 M/uL (4.7-6.1) 04/25/20 23:51 Hgb 14.4 g/dL (14.0-18.0) 04/25/20 23:51 Hct 43.3 % (42-52) 04/25/20 23:51 MCV 91.4 fL (80-100) 04/25/20 23:51 MCH 30.4 pg (25-34) 04/25/20 23:51 MCHC 33.3 g/dL (32-36) 04/25/20 23:51 RDW Std Deviation 44.5 fL (36.4-46.3) 04/25/20 23:51 RDW Coeff of Chad 13.4 % (11.5-14.5) 04/25/20 23:51 Plt Count 218 K/uL (130-400) 04/25/20 23:51 MPV 10.0 fL (7.4-10.4) 04/25/20 23:51 Immature Gran % (Auto) 0.2 % 04/25/20 23:51 Neut % (Auto) 48.0 % 04/25/20 23:51 Lymph % (Auto) 30.7 % 04/25/20 23:51 [place] % (Auto) 9.6 % 04/25/20 23:51 Eos % (Auto) 10.6 % 04/25/20 23:51 Baso % (Auto) 0.9 % 04/25/20 23:51 Neut # (Auto) 3.12 K/uL (1.4-6.5) 04/25/20 23:51 Lymph # (Auto) 1.99 K/uL (1.2-3.4) 04/25/20 23:51 [place] # (Auto) 0.62 K/uL (0.11-0.59) H 04/25/20 23:51 Eos # (Auto) 0.69 K/uL (0-0.5) H 04/25/20 23:51 Baso # (Auto) 0.06 K/uL (0-0.2) 04/25/20 23:51 Immature Gran # (Auto) 0.01 K/uL (0.00-0.02) 04/25/20 23:51 ESR 12 mm/hr (0-14) 04/25/20 23:51 Sodium 138 mmol/L (136-145) 04/25/20 23:51 Potassium 3.8 mmol/L (3.5-5.1) 04/25/20 23:51 Chloride 109 mmol/L (98-107) H 04/25/20 23:51 Carbon Dioxide 27 mmol/L (21-32) 04/25/20 23:51 Anion Gap 2.0 (3-11) L 04/25/20 23:51 BUN 19 mg/dl (7-18) H 04/25/20 23:51 Creatinine 1.13 mg/dl (0.6-1.4) 04/25/20 23:51 Est Cr Clr Drug Dosing 82.0 ml/min 04/25/20 23:51 Est GFR ( Amer) 84.3 04/25/20 23:51 Est GFR (Non-Af Amer) 72.8 04/25/20 23:51 BUN/Creatinine Ratio 16.6 (10-20) 04/25/20 23:51 Glucose 89 mg/dl (70-99) 04/25/20 23:51 Lactate 1.0 mmol/L (0.4-2.0) 04/25/20 23:51 Calcium 8.8 mg/dl (8.5-10.1) 04/25/20 23:51 Total Bilirubin 0.3 mg/dl (0.2-1) 04/25/20 23:51 AST 28 U/L (15-37) 04/25/20 23:51 ALT 37 U/L (12-78) 04/25/20 23:51 Alkaline Phosphatase 151 U/L (45-117) H 04/25/20 23:51 C-Reactive Protein 0.77 mg/dl (0-0.29) H 04/25/20 23:51 Total Protein 7.0 gm/dl (6.4-8.2) 04/25/20 23:51 Albumin 3.5 gm/dl (3.4-5.0) 04/25/20 23:51 Globulin 3.5 gm/dl (2.5-4.0) 04/25/20 23:51 Albumin/Globulin Ratio 1.0 (0.9-2) 04/25/20 23:51 Procalcitonin < 0.05 ng/ml (0-0.5) 04/25/20 23:51 COVID-19 Eval Order Covid19 [facility] 04/26/20 01:55 Diagnostic Findings 04/27/20 12:20 Gram Stain - Pending Foot,Right Wound Culture - Pending PG Care Time/CCT Total # of Minutes Spent Total Time Spent with Patient: Total time spent is greater than 50% in coordination of care (as documented) at patient's floor/unit and/or counseling patient: Coding Level of Care Code 82766 Inpt Consult Level 2 Diagnoses Contact dermatitis L25.9 Contact dermatitis trigger: unspecified trigger Contact dermatitis type: unspecified (1) Contact dermatitis Contact dermatitis trigger: unspecified trigger Contact dermatitis type: unspecified Qualified Code(s): L25.9 - Unspecified contact dermatitis, unspecified cause
[2020-04-27] MEDS ORDERED: cephALEXin 500 MG CAP PO SCH (14:00)
--- NOTE | 2020-04-27 14:53 | Discharge Summary ---
Date of Service April 27, 2020 Admission HPI Per Admitting Provider The patient is a 55-year-old male with a past medical history including polycythemia secondary to hypoxia, COPD group D, pulmonary nodule, environmental allergies, nocturnal hypoxia, hypertension and pulmonary emphysema. Patient reports that he had initially purchased new boots 2 weeks ago, that were the same size and type that he usually wears, along with a new pair of socks, and began to note a few days later a patch of redness on the dorsum of both feet. He was seen in the emergency department 2 evenings ago, was diagnosed with bilateral lower extremity cellulitis, right worse than left, started on Keflex and Bactrim. Since that time, his redness, swelling and pain has worsened, again right greater than left. Admission Exam Per Admitting Provider The patient is awake, alert and oriented 3, well developed and well nourished, normocephalic and atraumatic, lying in bed and in no acute distress. HEENT--PERRL, EOMI, mucous membranes and oropharynx normal. Neck--supple. No JVD. No bruits. Thyroid normal, trachea midline, no adenopathy. Heart--normal S1 and S2. No murmurs, rubs or gallops. Lungs--clear bilaterally, no respiratory distress, no accessory muscle use. Abdomen--normal bowel sounds and soft. Nontender. Nondistended, no hernias or masses, no organomegaly. Extremities--bilateral erythema, edema and warmth, right greater than left feet along dorsal surfaces. Dermatologic--see above Neurologic--cranial nerves II through XII grossly intact. Rheumatologic--normal range of motion. Psychiatric--normal affect. Principal Diagnosis Contact Dermatitis of bilateral feet with lesions and superficial impetigo Discharge Exam Constitutional: WD/WN, vitals as above + thin, cooperative and comfortable Eyes: PERRL, conjunctivae normal, anicteric sclerae ENMT: external ear and nose normal, oropharynx normal Neck: normal visual inspection and trachea midline Respiratory: normal respiratory effort, lungs clear to auscultation Cardiovascular: Rate/Rhythm: regular rate and regular rhythm Musculoskeletal: Head/Neck/Chest: normocephalic and head atraumatic Skin: mild macular papular rash to upper extremities; none on back. Right foot with lesion to dorsum and plantar aspect with lesions that extends distally including the right dorsal 1-3 digits and extends to plantar 1-4 digits with mild honesycrusting with lesion have some mild serous drainage but mostly dry. Left foot only significant to lesion to dorsum of left foot that appears healing. No significant surrounding erythema or warmth. Neurologic: moves all extremities and awake Psychiatric: A+Ox3, euthymic affect Discharge Data Allergies Allergy/AdvReac Type Severity Reaction Status Date / Time sulfamethoxazole Allergy Severe Verified 04/28/20 13:12 [From Bactrim] Consultations 04/26/20 01:25 ED Decision to Admit Stat 04/27/20 09:48 Consult Dermatology Routine Hospital Course (1) Skin lesion of foot: 55 yo M Hx COPD/emphysema (former smoker), polycythemia, tachycardia on daily metoprolol therapy presented with R>L foot erythema, swelling, and ulcerations, and was admitted for suspected cellulitis. Was started on IV antibiotics (Vanc and Rocephin), which was discontinued as differential of Vasculitis was considered and was started on IV Solumedrol. Had Rheumatologic panel of labwork ordered to include GEOFF 12 panel, ESR, ANCA with reflex. Had mildly elevated CRP and ESR WNL. Doubt Vasculitis and then obtained Dermatology referral for high suspicion of contact dermatitis based on bilateral presentation and absence of inflammatory markers. This was presumed to maybe from the plastic of his muck boots. He will need Patch testing workup as outpatient. He will follow up with Dermatology next week. Dermatology Dr. Kirk was graciously able to perform a biopsy on day of discharge. Dermatology also was suspicious for contact dermatitis. - He is treated with oral steroids and topical steroids for the underlying problem, contact dermatitis. He will be also on topical and Oral Keflex for superimposed impetigo while wound heals. His treatment plan including wound care is: Prednisone 10mg pills prescription was provided starting at 60mg for 3 days, t hen 40mg for 3 days, 30mg for 3 days, 20mg...then 10mg. Betamethasone dipropionate 0.05% ointment (steroid ointment) mixed 1:1 with Mupirocin 2% ointment (antibacterial ointment) applied to the areas of the feet twice daily x 2 weeks. Keflex 500mg TID x 10 days, he already has this medication at home. Will need follow up of Rheum labs, biopsy, patch testing, and ensuring that wounds are healing appropriately. Also he was presumed to have a drug rash caused by Bactrim's phototoxicity effect. Skin Lesion of Bilateral Feet: Contact Dermatitis vs. bilateral LE cellulitis: - Failed outpatient Keflex/Bactrim starting 04/22 for suspected cellulitis and despite this the patient's ulcerations and foot swelling/pain worsened. - No leukocytosis, blood cultures collected and negative to date. No history of DM2, PAD, recent steroid use that would put patient at increased risk of cellulitis. Bilateral nature and no improvement on oral Abx also inconsistent with cellulitis. - Physical exam not consistent with cellulitis given bilateral nature. Seems symmetrical bilateral with respect to inciting dorsal lesion that appears more consistent with a Contact Dermatitis with possible surrounding ID reaction. - Previous differential included vasculitis of unknown origin vs. other autoimmune/allergic source of ulcerations, swelling, and rash. However doubt Vasculitis as ESR was WNL and CRP was only mildly elevated. - On 04/26/20 was transitioned off of antibiotics, and started high dose steroids (methylprednisolone 60mg IV daily), with Rheumatology follow up outpatient for treatment for vasculitis. Also, had Rheumatologic panel of labwork ordered to include GEOFF 12 panel, ESR, ANCA with reflex. - Will continue steroid treatment pending improvement overnight into tomorrow morning. Will also follow blood cultures to ensure no systemic infection but doubt since not having any systemic symptoms. - Has strong pedal pulses do not suspect vascular disease. - He notes using a new pair of socks that might have had metal component prior to onset. He might have had a metal allergy from footwear. Treatment for this will be steroids. Will transition from IV steroids to Prednisone 60mg PO with most likely extended taper on outpatient and then would recommend patch testing for allergic causes. - Continue with wound care - Has mild impetigo and even though no gross infection, with wounds could progress to cause complication. Thus will start on Keflex 500mg TID. 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 Appears resolving, follow for return incase Keflex was the culprit and not Bactrim. Perhaps he is allergy to sulfa drugs such as Bactrim. COPD/emphysema: - History of, on Incruse and fluticasone/salmeterol inhalers at home daily; continue these. - Without respiratory concerns this admission and saturating well on room air. - Albuterol prn shortness of breath/wheezing. Tachycardia: - Resolved - History of, on daily metoprolol therapy. - HR well controlled this admission, continue Toprol 25mg daily. Code Status: FULL CODE Diet: Regular DVT ppx: patient able to ambulate independently, ambulate as can tolerate, and SCDs while in bed (2) COPD, group D, by GOLD 2017 classification: (3) Pulmonary emphysema: (4) Polycythemia secondary to hypoxia: Total Time Total Time Spent Total Time Spent (In Minutes): 45 minutes, seeing patient, review chart, discussing with art sales consultant. Discharge Plan Discharge Items Patient Disposition: Home - Self-Care Reason For Visit: B/L LE CELLULITIS Discharge Diagnosis: Contact Dermatitis Condition on Discharge: Good Activity: Per Instructions section Non-emergency contact: Primary Care Provider Call non-emergency contact if: your symptoms worsen, your pain is unusual for you, your pain is concerning for you and your temperature is above 101.5 Follow-up/Referrals: Mayuri Mayers MD [Primary Care Provider] - 05/01/20 2:00 pm () Grant Kirk MD [Physician] - 05/02/20 11:30 am (Call for follow up appointment in one week.) Nabil Wright DO [Resident] - Diet: Regular Addtl Attending Provider Instructions: The cause of your wounds was most likely from a severe allergic skin reaction, called contact dermatitis. This was believed to be caused by your muck boots. There are different types of substances that could cause this such as rubber from the boot or metal from the boot. Do not wear those muck boots and find alternative foot lyle while wounds heal. Dr. Kirk, Dermatology would like to see you in his office next week for hospital follow up. We recommend that you get tested for different types of allergens to try to identify and help guide you to know what you should avoid to prevent additional or other similar reactions. This test is a called a Patch test and can be ordered by your Primary Care Physician. For further care of your foot please take/apply the following medications: 1. Prednisone (Steroids) - to treat the contact dermatitis. You were started on this medication in the hospital. You will need to take a 15 day taper of this medication. You already started day 1 here in the hospital. Prednisone 10mg pills prescription has been sent to pharmacy on file. - For the next two days take = 60mg (6 tablets) daily, then decrease for the next 3 days = 40 mg (4 tablets per day), then decrease dose for the next 3 days = 30mg (3 tablets per day), then decrease to dose to 20mg for the next 3 days (2 tablets per day) then for final 3 days take 10mg (1 tablet per day). 2. Betamethasone dipropionate 0.05% ointment (steroid ointment) mixed 1:1 with 3. Mupirocin 2% ointment (antibacterial ointment) applied to the areas of the feet twice daily x 2 weeks. 4. Keflex 500mg. Take one pill, 3 times a day (breakfast/lunch/dinner). You started this medication in the hospital. You already have this medication at home. Please continue this medication. This medication was previously for 10 day course, continue with this 10 day course. Pending Studies at Discharge: Yes Studies:: Wound culture; Rheumatologic workup; skin biopsy Stand-Alone Forms: [facility] [employer], Work/School Release (Inpt), Smoking Cessation Medications and DC Order Prescriptions: New fluocinonide 0.05 % Ointment 1 applic EXT BID 14 Days Qty: 60 RF: 0 mupirocin 2 % ointment 1 applic topical BID 14 Days Qty: 22 RF: 1 prednisone 10 mg tablet 10 mg PO DAILY Qty: 42 RF: 0 Continued albuterol sulfate [ProAir HFA] 90 mcg/actuation HFA aerosol inhaler 2 puff INHALATION Q4 PRN (Reason: Shortness Of Breath Or Wheezing) Qty: 6.7 RF: 2 metoprolol succinate [Toprol XL] 25 mg tablet extended release 24 hr 25 mg PO QAM RF: 0 cephalexin [Keflex] 500 mg capsule 500 mg PO TID 10 Days Qty: 30 RF: 0 fluticasone propion-salmeterol 250-50 mcg/dose blister with device 1 ea INH BID RF: 0 Discontinued sulfamethoxazole-trimethoprim [Bactrim DS] 800-160 mg tablet 1 tab PO BID 10 Days Qty: 20 RF: 0 clotrimazole [Lotrimin AF (clotrimazole)] 1 % cream 1 applic topical TID Qty: 14 RF: 2 Discharge Orders: Discharge Order (Routine); Ordered 04/27/20 Ordered By: Nabil Mesa/Other Patient Handouts: Wound Care, ED Contact Dermatitis Admission Data Admit Date/Time: 04/26/20 01:34 Attending Provider: Dave Guardado Admit Provider: Champ Ramirez Primary Care Provider: Mayuri Mayers Other Providers: Champ Ramirez ; Grant Kirk Other Interventions: Discharge Summary Assessment (RN) Last Done: 04/27/20 14:30 Supervising Physician Co-Signing Physician Notes I personally examined the patient and verified all mike points of history and exam, discussed case, and agree with decision making with Dr Wright. Please see my attestation in the daily progress note. After dermatology consultation and recommendations, agree with discharge today and follow up as indicated above. Resident Activity Tracking Resident Involvement: Resident Care Provided Care Provided: Adult Hospital Medicine
[2020-04-27] MEDS ORDERED: VANCOMYCIN TROUGH ONE (15:30)
[2020-04-27] MEDS ORDERED: MUPIROCIN 2% OINT 22 GM TUBE EXT SCH (21:00)
[2020-04-27] MEDS ORDERED: FLUOCINONIDE 0.05% OINT 15 GM TUBE EXT SCH (21:00)
[2020-05-02 00:57] LABS: Anti Cardiolipin Ab IgG <14 GPL; Anti Cardiolipin Ab IgM <12 MPL; Anti Nuclear Antibody Screen NEGATIVE (NEGATIVE); Anti-Cardiolipin Ab IgA <11 APL; Anti-Centromere Ab <1.0 NEG AI (<1.0 NEG); Anti-SS-A <1.0 NEG AI (<1.0 NEG); Anti-SS-B <1.0 NEG AI (<1.0 NEG); Chromatin Antibody <1.0 NEG AI (<1.0 NEG); Complement C3 136 mg/dL (82-185); DNA ds Crithidia NEGATIVE (NEGATIVE); Microsomal Ab 6 IU/mL (<9); RNP Antibody <1.0 NEG AI (<1.0 NEG); Scleroderma Anti Scl-70 Ab <1.0 NEG AI (<1.0 NEG); Sm Antibody <1.0 NEG AI (<1.0 NEG)
[2020-05-02 23:07] LABS: ANCA Screen Negative (Negative); Myeloperoxidase Ab <1.0 AI (<1.0); Proteinase-3 AB <1.0 AI (<1.0)
== END 2020-04-27 15:53 | disposition home or self-care (01) ==
LOC: ED 23:13 → 3N 04-26 01:34 → INTOOBSV 04-26 01:34 → SUATTDRO 04-26 01:34 → 3N 04-26 03:27

== ENCOUNTER 2021-02-22 21:45 | Inpatient (IN) ==
[2021-02-22] MEDS ORDERED: dexAMETHasone**PF** 10 MG/ML VIAL IV ONE (21:48)
[2021-02-22] MEDS ORDERED: ALBUTEROL HFA 8 GM INHALER INH ONE (21:48)
[2021-02-22] MEDS ORDERED: SODIUM CHLORIDE 0.9% 1000ML 1,000 ML IV SCH (22:00)
--- NOTE | 2021-02-22 22:06 | Emergency Department Note ---
History of Present Illness General Chief complaint: Shortness of Breath/Dyspnea Stated complaint: SOB Time Seen by Provider: 02/22/21 21:48 History of Present Illness This 56-year-old with COPD presents to the ER complaining of cough and worsening shortness of breath who sats were in the 80s per EMS Location: Generalized Quality: Hard to breathe Severity: Moderate Duration: Past 2 days Timing: Symptoms started 9 days ago Context: Patient was problems breathing and called EMS Modifying factors: better with rest; worse with activity Patient states he quit smoking a year ago. Patient complains of cough, congestion, dyspnea and generalized illness. He is unvaccinated for Covid and influenza. Patient denies constant chest pain, abdominal pain, vomiting, diarrhea. Home Medications Medication Instructions Recorded Confirmed Type metoprolol succinate 25 mg 25 mg PO QAM 01/18/18 02/22/21 History tablet,extended release 24 hr (Toprol XL) albuterol sulfate 90 mcg/actuation 2 puff INHALATION Q4 PRN #6.7 gm 11/16/20 02/22/21 Rx aerosol inhaler (ProAir HFA) budesonide-formoterol HFA 80 2 puff INHALATION BID #10.2 g 02/12/21 02/22/21 Rx mcg-4.5 mcg/actuation aerosol inhaler (Symbicort) betamethasone dipropionate 0.05 % 1 applic TOPICAL BID PRN 02/23/21 02/22/21 History topical cream Allergies Allergy/AdvReac Type Severity Reaction Status Date / Time sulfamethoxazole Allergy Severe Unknown Verified 02/22/21 23:44 [From Bactrim] levofloxacin Allergy Hives Verified 02/22/21 23:44 Past Med/Surg History Medical History Back problem HX OF BACK BROKEN - NO SURGERY, HEALED ON OWN Contact dermatitis COPD (chronic obstructive pulmonary disease) COPD, group D, by GOLD 2017 classification Cough Dyspnea Fast heart beat History of COPD History of fracture HX OF JAW BROKEN, WIRED, NO CURRENT HARDWARE, DENIES PROBLEMS WITH JAW MOVEMENT Mini stroke ? HX OF, POSSIBLE HX OF MENTIONED 15 YR AGO TO PT - NO RESIDUAL EFFECTS Polycythemia secondary to hypoxia Surgical History History of hand surgery 12/06/18 - FOR INFECTION OF RIGHT POINTER FINGER - HEALED History of left heart catheterization 2 YR AGO, PT REPORTS HEART CATH - FAST HEART BEAT...NO FINDINGS ([facility]) Family History Other No pertinent family history Social History Smoking Status: Current some day smoker Tobacco Type: Cigarettes Cigarettes Per Day: 40; Second Hand Exposure: Yes; Hx Alcohol Use: No Hx Substance Use: No Preferred Language: Niuean Communication Ability: Effective 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 Required: No Beliefs That Will Affect Care: None marital status: Current Living Situation: Spouse current occupational 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 Feels Safe at Home: Yes Assistive Devices: Glasses Review of Systems A total of 10 systems reviewed and were otherwise negative Physical Exam Vital Signs Vital Signs - 24 hr 02/22/21 22:14 02/22/21 22:23 02/22/21 22:30 Temperature 36.9 C Temperature Source Oral Pulse Rate 102 H 102 H 107 H Pulse Rate from SpO2 Sensor 97 H Pulse Rhythm Regular Pulse Strength Normal Respiratory Rate 19 19 23 Respiratory Rate [Exercises] Respiratory Effort / Characteristics Short of Breath Respiratory Depth Normal Blood Pressure 133/93 143/79 H Blood Pressure Mean 106 100 Blood Pressure Position Semi-fowlers Pulse Oximetry 92 92 87 L Pulse Oximetry [Exercises] Oxygen Delivery Method Room Air Room Air Nasal Cannula Oxygen Flow Rate 2 Sepsis Recent Fever Within 48 Hours No Sepsis New/Unexplained Change in Mental Status No Sepsis Action Taken by Nursing No Action Required 02/22/21 22:33 02/22/21 23:00 02/22/21 23:29 Temperature Temperature Source Pulse Rate 93 H Pulse Rate from SpO2 Sensor 91 H Pulse Rhythm Pulse Strength Respiratory Rate 14 Respiratory Rate [Exercises] 28 H Respiratory Effort / Characteristics Respiratory Depth Blood Pressure Blood Pressure Mean Blood Pressure Position Pulse Oximetry 92 98 Pulse Oximetry [Exercises] 87 L Oxygen Delivery Method Room Air Nasal Cannula Room Air Oxygen Flow Rate 2 Sepsis Recent Fever Within 48 Hours Sepsis New/Unexplained Change in Mental Status Sepsis Action Taken by Nursing 02/22/21 23:30 Temperature Temperature Source Pulse Rate 96 H Pulse Rate from SpO2 Sensor 90 Pulse Rhythm Pulse Strength Respiratory Rate 14 Respiratory Rate [Exercises] Respiratory Effort / Characteristics Respiratory Depth Blood Pressure 124/77 Blood Pressure Mean 92 Blood Pressure Position Pulse Oximetry 97 Pulse Oximetry [Exercises] Oxygen Delivery Method Nasal Cannula Oxygen Flow Rate 2 Sepsis Recent Fever Within 48 Hours Sepsis New/Unexplained Change in Mental Status Sepsis Action Taken by Nursing VITALS: Vitals are noted on the nurse's note and reviewed by myself. Vital signs hypoxic on room air. GENERAL: White male ill-appearing coughing working to breathe SKIN: The skin was without rashes, erythema, edema, or bruising. There is no tenting of the skin. Capillary reflex less than 2 seconds. HEAD: Normocephalic atraumatic. EARS: External auditory canals clear, EYES: Pupils equal round and reactive to light and accommodation. Conjunctivae without injection, sclerae without icterus. Extraocular movements intact. NOSE: Patent, turbinates without inflammation or discharge. MOUTH: Mucous membranes moist. Pharynx without erythema or exudate. Uvula midline. Airway patent. Tongue does not deviate. NECK: Supple without nuchal rigidity. No lymphadenopathy. No thyromegaly. Cervical spine is nontender. No JVD. HEART: Regular rate and rhythm LUNGS: Diffuse inspiratory and end expiratory wheezes, w/o rales or rhonchi. No retractions or accessory muscle use. ABDOMEN: Positive bowel sounds x 4. Normal tympanic percussion. Soft, non tender, without masses or organomegaly. Hopkins sign negative. No guarding or rebound tenderness. No CVA tenderness MUSCULOSKELETAL: No muscle atrophy, erythema, or edema noted. NEURO: Patient was alert and oriented to person place and time. Normal sensation to light and sharp touch. No focal neurological deficits. Course Administered Medications Remdesivir 200 mg/ Sodium (Chloride) 250 mls @ 125 mls/hr IV ONE STA; Protocol Stop: 02/23/21 01:52 Last Admin: 02/23/21 00:33 Dose: 125 mls/hr Documented by: [id number] Discontinued Medications Albuterol (Albuterol Hfa 8 Gm Inhaler) 2 puffs INH NOW ONE Stop: 02/22/21 21:49 Last Admin: 02/22/21 22:45 Dose: 2 puffs Documented by: [id number] Dexamethasone Sodium Phosphate (DexamethasonePf 10 Mg/Ml Vial) 6 mg IV NOW ONE Stop: 02/22/21 21:49 Last Admin: 02/22/21 22:46 Dose: 6 mg Documented by: [id number] Sodium Chloride (Nss 1000ml) 1,000 mls @ 999 mls/hr IV .Q1H1M EMMANUEL Stop: 02/22/21 23:00 Last Infusion: 02/23/21 00:33 Dose: 0 mls/hr Documented by: [id number] Admin: 02/22/21 22:45 Dose: 999 mls/hr Documented by: [id number] Medical Decision Making Medical Records Attestation: I reviewed the patient's medical records. Home Medications Current Medication List: was personally reviewed by me Laboratory Data Attestation: I reviewed the patient's lab results. Result diagrams: 02/22/21 22:04 02/22/21 22:04 Lab Results 02/22/21 02/22/21 02/22/21 Range/Units 22:04 22:04 22:04 WBC 4.87 (4.8-10.8) K/uL RBC 5.34 (4.7-6.1) M/uL Hgb 16.2 (14.0-18.0) g/dL Hct 47.4 (42-52) % MCV 88.8 (80-100) fL MCH 30.3 (25-34) pg MCHC 34.2 (32-36) g/dL RDW Std Deviation 44.2 (36.4-46.3) fL RDW Coeff of Chad 13.4 (11.5-14.5) % Plt Count 286 (130-400) K/uL MPV 11.0 H (7.4-10.4) fL Immature Gran % (Auto) 0.4 % Neut % (Auto) 55.7 % Lymph % (Auto) 25.9 % Cotton % (Auto) 15.8 % Eos % (Auto) 1.8 % Baso % (Auto) 0.4 % Neut # (Auto) 2.71 (1.4-6.5) K/uL Lymph # (Auto) 1.26 (1.2-3.4) K/uL Cotton # (Auto) 0.77 H (0.11-0.59) K/uL Eos # (Auto) 0.09 (0-0.5) K/uL Baso # (Auto) 0.02 (0-0.2) K/uL Immature Gran # (Auto) 0.02 (0.00-0.02) K/uL PT 9.9 (9.0-12.0) Seconds INR 1.0 (0.9-1.1) APTT 24.5 (21.0-31.0) Seconds PTT Ratio 0.9 ABG pH (7.35-7.45) ABG pCO2 (35-46) mmHg ABG pO2 (80-95) mmHg ABG HCO3 (19-24) mmol/L ABG O2 Saturation (90-95) % ABG Base Excess (-9-1.8) mEq/L Sy Test (Pos) Barometric Pressure mm/Hg Oxygen Given Sodium 140 (136-145) mmol/L Potassium 3.5 (3.5-5.1) mmol/L Chloride 107 (98-107) mmol/L Carbon Dioxide 24 (21-32) mmol/L Anion Gap 9.0 (3-11) BUN 13 (7-18) mg/dl Creatinine 0.80 (0.6-1.4) mg/dl Est Cr Clr Drug Dosing 104.4 ml/min Est GFR ( Amer) 115.7 ml/min Est GFR (Non-Af Amer) 99.9 ml/min BUN/Creatinine Ratio 16.2 (10-20) Glucose 124 H (70-99) mg/dl Lactate (0.4-2.0) mmol/L Calcium 8.6 (8.5-10.1) mg/dl Magnesium 2.1 (1.8-2.4) mg/dl Total Bilirubin 0.5 (0.2-1) mg/dl AST 22 (15-37) U/L ALT 39 (12-78) U/L Alkaline Phosphatase 131 H (45-117) U/L Troponin I < 0.015 (0-0.045) ng/ml Total Protein 6.7 (6.4-8.2) gm/dl Albumin 2.8 L (3.4-5.0) gm/dl Globulin 3.9 (2.5-4.0) gm/dl Albumin/Globulin Ratio 0.7 L (0.9-2) SARS-CoV-2 (PCR) (Negative) 02/22/21 02/22/21 02/22/21 Range/Units 22:04 22:29 23:10 WBC (4.8-10.8) K/uL RBC (4.7-6.1) M/uL Hgb (14.0-18.0) g/dL Hct (42-52) % MCV (80-100) fL MCH (25-34) pg MCHC (32-36) g/dL RDW Std Deviation (36.4-46.3) fL RDW Coeff of Chad (11.5-14.5) % Plt Count (130-400) K/uL MPV (7.4-10.4) fL Immature Gran % (Auto) % Neut % (Auto) % Lymph % (Auto) % Cotton % (Auto) % Eos % (Auto) % Baso % (Auto) % Neut # (Auto) (1.4-6.5) K/uL Lymph # (Auto) (1.2-3.4) K/uL Cotton # (Auto) (0.11-0.59) K/uL Eos # (Auto) (0-0.5) K/uL Baso # (Auto) (0-0.2) K/uL Immature Gran # (Auto) (0.00-0.02) K/uL PT (9.0-12.0) Seconds INR (0.9-1.1) APTT (21.0-31.0) Seconds PTT Ratio ABG pH 7.51 H* (7.35-7.45) ABG pCO2 28 L (35-46) mmHg ABG pO2 59 L (80-95) mmHg ABG HCO3 22 (19-24) mmol/L ABG O2 Saturation 93.2 (90-95) % ABG Base Excess 0.4 (-9-1.8) mEq/L Sy Test POS (Pos) Barometric Pressure 735.2 mm/Hg Oxygen Given 2 L Sodium (136-145) mmol/L Potassium (3.5-5.1) mmol/L Chloride (98-107) mmol/L Carbon Dioxide (21-32) mmol/L Anion Gap (3-11) BUN (7-18) mg/dl Creatinine (0.6-1.4) mg/dl Est Cr Clr Drug Dosing ml/min Est GFR ( Amer) ml/min Est GFR (Non-Af Amer) ml/min BUN/Creatinine Ratio (10-20) Glucose (70-99) mg/dl Lactate 1.8 (0.4-2.0) mmol/L Calcium (8.5-10.1) mg/dl Magnesium (1.8-2.4) mg/dl Total Bilirubin (0.2-1) mg/dl AST (15-37) U/L ALT (12-78) U/L Alkaline Phosphatase (45-117) U/L Troponin I (0-0.045) ng/ml Total Protein (6.4-8.2) gm/dl Albumin (3.4-5.0) gm/dl Globulin (2.5-4.0) gm/dl Albumin/Globulin Ratio (0.9-2) SARS-CoV-2 (PCR) POSITIVE A* (Negative) Imaging Data Attestation: I personally reviewed and interpreted this imaging study as follows: MDM Narrative Prior records/ancillary studies reviewed. Triage Nursing notes reviewed. Additional history obtained from EMS. The patient's history was concerning for cold symptoms with fever. Differential diagnosis: Etiologies such as viral syndrome, otitis, pharyngitis, pneumonia, influenza, meningitis, urinary tract infection, sepsis, bacteremia, as well as others were entertained. Physical examination: As above ER treatment provided: An order was placed for continuous cardiac monitoring. The monitor shows a rate of 60-1 50 with a sinus rhythm. Albuterol, IV fluids On reassessment the patient felt better. Diagnostics interpreted by me: ECG: Ordered for dyspnea EKG normal sinus, Normal intervals, occasional PVC, no acute ST-T wave changes, normal axis. Impression sinus tachycardia with occasional PVC interpreted by myself I think arrhythmia is unlikely. EKG shows normal sinus rhythm with no interval abnormalities such as QT prolongation or WPW. There are no findings to suggest Brugada syndrome. Cardiac monitoring in the emergency department reveals no tachycardic or bradycardic dysrhythmia. Hypertrophic cardiomyopathy was considered but there are no clear historical elements pointing toward this. EKG is not suggestive. The QRS voltage is not extremely large and there are no sugge stive Q waves. The labs revealed positive Covid, no worrisome leukocytosis, ABG reviewed Imaging studies: Chest x-ray with patchy opacities consistent with Covid pneumonia per my interpretation Consultation: A consultation was placed with hospitalist. The case was discussed and diagnostics were reviewed. The patient was evaluated in the ER for further treatment. This appears to be consistent with Covid who is hypoxic. Patient is 9 days out. Medicine is consulted. He will be admitted. He was placed on oxygen. ABG was reviewed. By the evaluation outlined above emergent etiologies such as otitis, pharyngitis, meningitis, urinary tract infection, sepsis, bacteremia, as well as others were deemed relatively unlikely. The pt informed about the findings as listed above. All questions were answered and pleased with the treatment. The chart was completed utilizing [employer] Speech voice recognition software. Grammatical errors, random word insertions, pronoun errors, and incomplete sentences are an occassional consequence of this system due to software limitations, ambient noise, and hardware issues. Any formal questions or concerns about the content, text, or information contained within the body of this dictation should be directly addressed to the physician financial services assistant for clarification. Impression & Plan COVID-19, Hypoxic Discharge Plan Visit Data Chief Complaint: Shortness of Breath/Dyspnea Stated Complaint: SOB ED Provider: Marleni Dang ED Midlevel Provider: Carmen Carcamo Discharge Problem: COVID-19, Hypoxic Patient Disposition: Admitted As Inpatient Condition: Fair Discharge Instructions Interventions: ED Discharge Assessment Last Done: 02/23/21 00:24
[2021-02-22 22:19] LABS: Basophils # (auto) 0.02 K/uL (0-0.2); Basophils % (auto) 0.4 %; Eosinophils # (auto) 0.09 K/uL (0-0.5); Eosinophils % (auto) 1.8 %; Hematocrit (blood only) 47.4 % (42-52); Hemoglobin 16.2 g/dL (14.0-18.0); Immature Granulocytes # (auto) 0.02 K/uL (0.00-0.02); Immature Granulocytes % (auto) 0.4 %; Lymphocytes # (auto) 1.26 K/uL (1.2-3.4); Lymphocytes % (auto) 25.9 %; Mean Corpuscular Hemoglobin 30.3 pg (25-34); Mean Corpuscular Hgb Conc 34.2 g/dL (32-36); Mean Corpuscular Volume 88.8 fL (80-100); Monocytes # (auto) 0.77 K/uL (0.11-0.59); Monocytes % (auto) 15.8 %; Neutrophils # (auto) 2.71 K/uL (1.4-6.5); Neutrophils % (auto) 55.7 %; Platelet Count 286 K/uL (130-400); RDW Coefficient of Variation 13.4 % (11.5-14.5); RDW Standard Deviation 44.2 fL (36.4-46.3); Red Blood Count 5.34 M/uL (4.7-6.1); White Blood Count 4.87 K/uL (4.8-10.8)
[2021-02-22 22:30] LABS: Partial Thromboplastin Ratio 0.9; Partial Thromboplastin Time 24.5 Seconds (21.0-31.0); Prothrombin Time 9.9 Seconds (9.0-12.0)
[2021-02-22 22:40] LABS: Alanine Aminotransferase 39 U/L (12-78); Albumin Level 2.8 gm/dl (3.4-5.0); Aspartate Aminotransferase 22 U/L (15-37); BUN Creatinine Ratio 16.2 (10-20); Blood Urea Nitrogen 13 mg/dl (7-18); Calcium 8.6 mg/dl (8.5-10.1); Carbon Dioxide 24 mmol/L (21-32); Chloride 107 mmol/L (98-107); Creatinine Clr Calc Pharmacy 104.4 ml/min; Est GFR (African American) 115.7 ml/min; Est GFR (Non-African American) 99.9 ml/min; Glucose 124 mg/dl (70-99); Magnesium 2.1 mg/dl (1.8-2.4); Potassium 3.5 mmol/L (3.5-5.1); Sodium 140 mmol/L (136-145)
[2021-02-22 22:44] LABS: Albumin Globulin Ratio 0.7 (0.9-2); Alkaline Phosphatase 131 U/L (45-117); Bilirubin,Total 0.5 mg/dl (0.2-1); Globulin 3.9 gm/dl (2.5-4.0); Total Protein 6.7 gm/dl (6.4-8.2); Troponin I < 0.015 ng/ml (0-0.045)
[2021-02-22 23:23] LABS: Base Excess ABG 0.4 mEq/L (-9-1.8); HCO3 ABG 22 mmol/L (19-24); Oxygen Saturation ABG 93.2 % (90-95); PCO2 ABG 28 mmHg (35-46); PO2 ABG 59 mmHg (80-95)
[2021-02-22 23:24] LABS: Allen Test POS (Pos)
[2021-02-22 23:25] LABS: pH ABG 7.51 (7.35-7.45)
[2021-02-22] MEDS ORDERED: REMDESIVIR 200 MG in SODIUM CHLORIDE 0.9% 210 ML IV STA (23:53)
--- NOTE | 2021-02-22 23:53 | History & Physical Report ---
Date of Service February 22, 2021 Assessment & Plan (1) Pneumonia due to COVID-19 virus: Plan: COVID-19 pneumonia/COPD exacerbation/hypoxia- Received dexamethasone 10 mg IV from the ED Dexamethasone 6 mg IV every morning Remdesivir IV per protocol Azithromycin 500 mg IV daily Duonebs every 4 hours while awake and every 2 hours when necessary. Guaifenesin with codeine 5 mL p.o. every 4 hours as needed Lovenox 30 mg subcu every 12 hours Vitamin D 1000 international units p.o. daily Zinc sulfate 2020 mg p.o. daily Nasal cannula oxygen, titrate to keep pulse ox around 94% (2) Hypoxia: Plan: See above (3) COPD, group D, by GOLD 2017 classification: Plan: See above (4) Hypertension: Plan: Continue metoprolol succinate with hold parameters History of Present Illness Chief Complaint: The patient presents to the emergency department after being seen by EMS at home, with pulse ox in the 80s, and worsening symptoms of cough, shortness of breath and generalized fatigue. Primary Care Provider: Mayuri Mayers MD The patient is a 56-year-old male with a past medical history including COPD group D, polycythemia secondary hypoxia, pulmonary nodule, environmental allergies, nocturnal hypoxemia and hypertension. He presents as noted above, noting that his symptoms began about 9 days ago, and particularly worsened over the past 48 hours. Lowest pulse ox in the ED this evening was 87% on room air The patient was COVID-19 positive in ED this evening, and was given dexamethasone 10 mg IV by the ED Allergies Allergy/AdvReac Type Severity Reaction Status Date / Time sulfamethoxazole Allergy Severe Unknown Verified 02/22/21 23:44 [From Bactrim] levofloxacin Allergy Hives Verified 02/22/21 23:44 Home Medications Medication Instructions Recorded Confirmed Type metoprolol succinate 25 mg 25 mg PO QAM 01/18/18 02/22/21 History tablet,extended release 24 hr (Toprol XL) albuterol sulfate 90 mcg/actuation 2 puff INHALATION Q4 PRN #6.7 gm 11/16/20 Rx aerosol inhaler (ProAir HFA) budesonide-formoterol HFA 80 2 puff INHALATION BID #10.2 g 02/12/21 02/22/21 Rx mcg-4.5 mcg/actuation aerosol inhaler (Symbicort) betamethasone dipropionate 0.05 % 1 applic TOPICAL BID PRN 02/23/21 02/22/21 History topical cream Past Med/Surg History Medical History (Updated 02/23/21 @ 03:23 by Champ Ramirez MD) Back problem HX OF BACK BROKEN - NO SURGERY, HEALED ON OWN Contact dermatitis COPD (chronic obstructive pulmonary disease) COPD, group D, by GOLD 2017 classification Cough Dyspnea Fast heart beat History of COPD History of fracture HX OF JAW BROKEN, WIRED, NO CURRENT HARDWARE, DENIES PROBLEMS WITH JAW MOVEMENT Hypertension Mini stroke ? HX OF, POSSIBLE HX OF MENTIONED 15 YR AGO TO PT - NO RESIDUAL EFFECTS Polycythemia secondary to hypoxia Surgical History History of hand surgery 12/06/18 - FOR INFECTION OF RIGHT POINTER FINGER - HEALED History of left heart catheterization 2 YR AGO, PT REPORTS HEART CATH - FAST HEART BEAT...NO FINDINGS ([facility]) Family History Other No pertinent family history Social History Smoking Status: Former smoker Tobacco Type: Cigarettes Cigarettes Per Day: 40; Second Hand Exposure: Yes; Hx Alcohol Use: No Hx Substance Use: No Preferred Language: Jordanian Communication Ability: Effective Dater Assembler Required: No Beliefs That Will Affect Care: None marital status: Current Living Situation: Spouse 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 occupational 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 Other Information That Helps Us Care for You: No Feels Safe at Home: Yes Safety Concerns: Feels Safe At This Time Assistive Devices: None Review of Systems Review of Systems: The patient denies chest pain, palpitations, lower extremity swelling, sore throat, fevers, chills, sweats, nausea, vomiting, diarrhea , constipation, abdominal pain, pelvic pain, blood in urine or stool, dysuria, urinary frequency or urgency, memory loss, loss of consciousness, rash, abnormal bruising or bleeding, imbalance, focal weakness, numbness or tingling in arms or legs, generalized arthralgias or myalgias, back or neck pain, or night sweats. The review of systems is otherwise negative other than for that already noted above, and at least 10 systems have been reviewed. Physical Exam Physical Exam: The patient is awake, alert and oriented 3, looks very fatigued, normocephalic and atraumatic, lying in bed and in no acute distress. HEENT--PERRL, EOMI, mucous membranes and oropharynx dry. Neck--supple. No JVD. No bruits. Thyroid normal, trachea midline, no adenopathy. Heart--normal S1 and S2. No murmurs, rubs or gallops. Lungs--coarse breath sounds with scattered wheezes bilaterally. No respiratory distress, no accessory muscle use. Abdomen--normal bowel sounds and soft. Nontender. Nondistended, no hernias or masses, no organomegaly. Extremities--no cyanosis or clubbing. No edema. Dermatologic--normal skin turgor, normal color, no abnormal lymph nodes, no rash. Neurologic--cranial nerves II through XII grossly intact. Rheumatologic--normal range of motion. Psychiatric--normal affect. Results & Data Results & Data ([facility]) Vital Signs (Past 12 Hours) Vital Signs Temp Pulse Resp BP Pulse Ox 02/22/21 22:33 92 02/22/21 22:23 102 H 19 92 02/22/21 22:14 98.4 F 102 H 19 133/93 92 Laboratory Results Laboratory Results WBC 4.87 K/uL (4.8-10.8) 02/22/21 22:04 RBC 5.34 M/uL (4.7-6.1) 02/22/21 22:04 Hgb 16.2 g/dL (14.0-18.0) 02/22/21 22:04 Hct 47.4 % (42-52) 02/22/21 22:04 MCV 88.8 fL (80-100) 02/22/21 22:04 MCH 30.3 pg (25-34) 02/22/21 22:04 MCHC 34.2 g/dL (32-36) 02/22/21 22:04 RDW Std Deviation 44.2 fL (36.4-46.3) 02/22/21 22:04 RDW Coeff of Chad 13.4 % (11.5-14.5) 02/22/21 22:04 Plt Count 286 K/uL (130-400) 02/22/21 22:04 MPV 11.0 fL (7.4-10.4) H 02/22/21 22:04 Immature Gran % (Auto) 0.4 % 02/22/21 22:04 Neut % (Auto) 55.7 % 02/22/21 22:04 Lymph % (Auto) 25.9 % 02/22/21 22:04 Sierra % (Auto) 15.8 % 02/22/21 22:04 Eos % (Auto) 1.8 % 02/22/21 22:04 Baso % (Auto) 0.4 % 02/22/21 22:04 Neut # (Auto) 2.71 K/uL (1.4-6.5) 02/22/21 22:04 Lymph # (Auto) 1.26 K/uL (1.2-3.4) 02/22/21 22:04 Sierra # (Auto) 0.77 K/uL (0.11-0.59) H 02/22/21 22:04 Eos # (Auto) 0.09 K/uL (0-0.5) 02/22/21 22:04 Baso # (Auto) 0.02 K/uL (0-0.2) 02/22/21 22:04 Immature Gran # (Auto) 0.02 K/uL (0.00-0.02) 02/22/21 22:04 PT 9.9 Seconds (9.0-12.0) 02/22/21 22:04 INR 1.0 (0.9-1.1) 02/22/21 22:04 APTT 24.5 Seconds (21.0-31.0) 02/22/21 22:04 PTT Ratio 0.9 02/22/21 22:04 ABG pH 7.51 (7.35-7.45) H* 02/22/21 23:10 ABG pCO2 28 mmHg (35-46) L 02/22/21 23:10 ABG pO2 59 mmHg (80-95) L 02/22/21 23:10 ABG HCO3 22 mmol/L (19-24) 02/22/21 23:10 ABG O2 Saturation 93.2 % (90-95) 02/22/21 23:10 ABG Base Excess 0.4 mEq/L (-9-1.8) 02/22/21 23:10 Sy Test POS (Pos) 02/22/21 23:10 Barometric Pressure 735.2 mm/Hg 02/22/21 23:10 Oxygen Given 2 L 02/22/21 23:10 Sodium 140 mmol/L (136-145) 02/22/21 22:04 Potassium 3.5 mmol/L (3.5-5.1) 02/22/21 22:04 Chloride 107 mmol/L (98-107) 02/22/21 22:04 Carbon Dioxide 24 mmol/L (21-32) 02/22/21 22:04 Anion Gap 9.0 (3-11) 02/22/21 22:04 BUN 13 mg/dl (7-18) 02/22/21 22:04 Creatinine 0.80 mg/dl (0.6-1.4) 02/22/21 22:04 Est Cr Clr Drug Dosing 104.4 ml/min 02/22/21 22:04 Est GFR ( Amer) 115.7 ml/min 02/22/21 22:04 Est GFR (Non-Af Amer) 99.9 ml/min 02/22/21 22:04 BUN/Creatinine Ratio 16.2 (10-20) 02/22/21 22:04 Glucose 124 mg/dl (70-99) H 02/22/21 22:04 Lactate 1.8 mmol/L (0.4-2.0) 02/22/21 22:04 Calcium 8.6 mg/dl (8.5-10.1) 02/22/21 22:04 Magnesium 2.1 mg/dl (1.8-2.4) 02/22/21 22:04 Total Bilirubin 0.5 mg/dl (0.2-1) 02/22/21 22:04 AST 22 U/L (15-37) 02/22/21 22:04 ALT 39 U/L (12-78) 02/22/21 22:04 Alkaline Phosphatase 131 U/L (45-117) H 02/22/21 22:04 Troponin I < 0.015 ng/ml (0-0.045) 02/22/21 22:04 Total Protein 6.7 gm/dl (6.4-8.2) 02/22/21 22:04 Albumin 2.8 gm/dl (3.4-5.0) L 02/22/21 22:04 Globulin 3.9 gm/dl (2.5-4.0) 02/22/21 22:04 Albumin/Globulin Ratio 0.7 (0.9-2) L 02/22/21 22:04 SARS-CoV-2 (PCR) POSITIVE (Negative) A* 02/22/21 22:29 Code Status & VTE Plan Code Status Full code VTE Prophylaxis Plan VTE Prophylaxis will be ordered: Yes PG Care Time/CCT Total # of Minutes Spent Total Time Spent with Patient: Total time spent is greater than 50% in coordination of care (as documented) at patient's floor/unit and/or counseling patient: Coding Level of Care Code 68479 Initial Inpt Care Lvl 3 Diagnoses Pneumonia due to COVID-19 virus U07.1; J12.82 Hypoxia R09.02 COPD, group D, by GOLD 2017 classification J44.9 Hypertension I10
[2021-02-23] MEDS ORDERED: ONDANSETRON INJ 2 MG/ML 2 ML VIAL IV PRN (00:58)
[2021-02-23] MEDS ORDERED: guaiFENesin/CODEINE 100MG/10MG 5ML UDC PO PRN (00:58)
[2021-02-23] MEDS ORDERED: NSS + 20MEQ KCL 20 MEQ/1,000 ML BAG IV SCH (02:00)
[2021-02-23] MEDS: AZITHROMYCIN 500 MG in DEXTROSE 5% 250 ML IV SCH (02:51)
[2021-02-23] MEDS: ENOXAPARIN INJ 30 MG/0.3 ML SYR SQ SCH ×3 (02:52→21:07)
[2021-02-23] MEDS: ACETAMINOPHEN 325 MG TAB PO PRN ×2 (02:52→21:13)
[2021-02-23 06:23] LABS: Basophils # (auto) 0.01 K/uL (0-0.2); Basophils % (auto) 0.5 %; Hematocrit (blood only) 43.4 % (42-52); Hemoglobin 14.6 g/dL (14.0-18.0); Immature Granulocytes # (auto) 0.01 K/uL (0.00-0.02); Immature Granulocytes % (auto) 0.5 %; Lymphocytes % (auto) 27.1 %; Mean Corpuscular Hemoglobin 30.1 pg (25-34); Mean Corpuscular Hgb Conc 33.6 g/dL (32-36); Mean Corpuscular Volume 89.5 fL (80-100); Mean Platelet Volume 10.8 fL (7.4-10.4); Monocytes # (auto) 0.28 K/uL (0.11-0.59); Monocytes % (auto) 12.7 %; Neutrophils # (auto) 1.31 K/uL (1.4-6.5); Neutrophils % (auto) 59.2 %; Platelet Count 304 K/uL (130-400); RDW Coefficient of Variation 13.4 % (11.5-14.5); RDW Standard Deviation 43.9 fL (36.4-46.3); Red Blood Count 4.85 M/uL (4.7-6.1); White Blood Count 2.21 K/uL (4.8-10.8)
[2021-02-23] MEDS ORDERED: ALBUT/IPRATROP 3MG/0.5MG NEB 3 ML VIAL NEB SCH (07:00)
[2021-02-23 07:18] LABS: Albumin Globulin Ratio 0.7 (0.9-2); Albumin Level 2.5 gm/dl (3.4-5.0); BUN Creatinine Ratio 13.7 (10-20); Bilirubin,Total 0.4 mg/dl (0.2-1); Calcium 8.4 mg/dl (8.5-10.1); Creatinine Clr Calc Pharmacy 110.4 ml/min; Est GFR (African American) 118.9 ml/min; Est GFR (Non-African American) 102.5 ml/min; Globulin 3.5 gm/dl (2.5-4.0); Potassium 4.3 mmol/L (3.5-5.1)
--- NOTE | 2021-02-23 08:08 | XRay Report ---
XR chest 1V portable HISTORY: SEPSIS COMPARISON: Chest and left rib series 02/26/2019. FINDINGS: No pneumothorax. No pleural effusions. The heart is normal in size. Severe emphysema with b ibasilar interstitial thickening remains unchanged. This may be due to vascular crowding from the emp hysema. There is a small linear scarlike density at the left lung base. Hazy left base airspace opaci ty has progressed. Mild biapical pleural thickening, unchanged. IMPRESSION: 1. There is a new small hazy airspace opacity within left lung base. This may represent a developing pneumonia. 2. Severe emphysema again noted. ACT 112: Negative or not required by law. Electronically signed by: Broderick Nunez M.D. 02/23/2021 8:07 AM
[2021-02-23] MEDS ORDERED: ALBUT/IPRATROP 3MG/0.5MG NEB 3 ML VIAL NEB PRN (08:35)
--- NOTE | 2021-02-23 09:45 | Hospitalist Progress Note ---
Date of Service February 23, 2021 Assessment & Plan (1) Pneumonia due to COVID-19 virus: Plan: Acute hypoxic respiratory failure 2/2 COVID-19 pneumonia Patient received dexamethasone 10 mg IV in ER Continue Decadron 6 mg IV every morning Patient initially started on remdesivir IV per protocol, on clarification with the symptoms his onset was greater than 10 days ago. Given reduced benefit at 10 days we will discontinue remdesivir at this time Continue azithromycin 500 mg IV daily DuoNebs every 4 hours as needed Guaifenesin with codeine every 4 hours as needed Lovenox DVT prophylaxis Titrate SPO2 greater than 90% CMP daily (2) Hypoxia: Plan: See above (3) COPD, group D, by GOLD 2017 classification: Plan: Continue nebulizers as above continue formulary fluticasone Vilanterol conversion (4) Hypertension: Plan: Continue metoprolol succinate with hold parameters Plan: DVT prophylaxis: Lovenox Diet: Regular CODE STATUS: Full code Admission and Anticipated Discharge Date Admission Date: February 22, 2021 Jr Zamarripa is seen at the bedside today. He reports that he is a little short of breath in bed, but improved from prior. He denies difficulty breathing. He denies chest pain, chest pressure, lightheadedness, dizziness, nausea/vomiting/diarrhea/constipation. Intermittent nonproductive cough this morning. He reports his symptoms began on the seventh, approximately 12 days ago. Initially reported about 9 days ago, clarified with patient who affirms that his symptoms did begin more than 10 days ago although he notes that his shortness of breath worsened in the past 48 hours. Review of Systems Review of Systems: All systems reviewed & are unremarkable except as noted in Subjective Physical Exam Physical Exam: General: A&Ox3. NAD. Cooperative. HEENT: Atraumatic, normocephalic. Visual acuity and hearing grossly intact. Pupils equal and reactive to light. Pulm: Moderate air movement, diffusely coarse, no wheezes at time of assessment, no rales at time of assessment, symmetrical chest rise. No accessory muscle use of breathing. Cardiac: RRR, -mrg. Radial pulses intact and symmetrical. Abdominal: Nontender, nondistended, soft. BS present. Extremities: Warm, dry moving all extremities equally Results & Data Results & Data ([facility]) Vital Signs (Past 12 Hours) Vital Signs Temp Pulse Pulse Resp Resp BP BP 02/23/21 08:47 79 20 104/61 02/23/21 07:34 76 14 02/23/21 04:02 36.6 C 82 18 126/74 02/23/21 01:01 36.7 C 91 H 18 130/79 02/23/21 00:24 88 18 02/23/21 00:00 91 H 18 02/22/21 23:30 96 H 14 124/77 02/22/21 23:29 28 H 02/22/21 23:00 93 H 14 02/22/21 22:33 02/22/21 22:30 107 H 23 143/79 H 02/22/21 22:23 102 H 19 02/22/21 22:14 36.9 C 102 H 19 133/93 Pulse Ox Pulse Ox 02/23/21 08:47 90 02/23/21 07:34 95 02/23/21 04:02 96 02/23/21 01:01 94 02/23/21 00:24 96 02/23/21 00:00 92 02/22/21 23:30 97 02/22/21 23:29 87 L 02/22/21 23:00 98 02/22/21 22:33 92 02/22/21 22:30 87 L 02/22/21 22:23 92 02/22/21 22:14 92 PG Care Time/CCT Total # of Minutes Spent Total Time Spent with Patient: Total time spent is greater than 50% in coordination of care (as documented) at patient's floor/unit and/or counseling patient: Coding Level of Care Code 63306 Subseq Hosp Care Lvl 2 Diagnoses Pneumonia due to COVID-19 virus U07.1; J12.82 Hypoxia R09.02 COPD, group D, by GOLD 2017 classification J44.9 Hypertension I10
[2021-02-23] MEDS: CHOLECALCIFEROL 1,000 UNITS 25 MCG TAB PO SCH (10:38)
[2021-02-23] MEDS: FLUTICASONE/VILANTEROL 200/25MCG 14 PUFFS/INHALER INH SCH (10:38)
[2021-02-23] MEDS: METOPROLOL SUCC 25MG EXT REL TAB PO SCH (10:38)
[2021-02-23] MEDS: dexAMETHasone 6 MG in SYRINGE 0 ML IV SCH (10:38)
[2021-02-23] MEDS: ZINC SULFATE 220 MG CAPSULE PO SCH (10:39)
[2021-02-23 18:20] LABS: Appearance Urine Clear (Clear); Bilirubin Urine Negative (Negative); Blood Urine Negative (Negative); Color Urine Yellow; Glucose Urine UA 2+ (Negative); Ketones Urine Negative (Negative); Leukocyte Esterase Urine Negative (Negative); Nitrite Urine Negative (Negative); Protein Urine Negative (Negative); Specific Gravity Urine 1.021 (1.000-1.030); Urobilinogen Urine Negative (Negative)
--- NOTE | 2021-02-23 18:22 | Electrocardiogram Report ---
Test Reason : Blood Pressure : / mmHG Vent. Rate : 101 BPM Atrial Rate : 101 BPM P-R Int : 150 ms QRS Dur : 100 ms QT Int : 386 ms P-R-T Axes : 056 051 052 degrees QTc Int : 500 ms Sinus tachycardia with occasional Premature ventricular complexes Otherwise normal ECG When compared with ECG of 26-FEB-2019 20:27, Premature ventricular complexes are now Present Vent. rate has increased BY 37 BPM QT has lengthened Confirmed by Santhosh Resendiz ([id number]) on 02/23/2021 6:22:03 PM Referred By: REFERRED SELF Confirmed By:Santhosh Resendiz
--- NOTE | 2021-02-23 18:32 | Electrocardiogram Report ---
Test Reason : Blood Pressure : / mmHG Vent. Rate : 077 BPM Atrial Rate : 077 BPM P-R Int : 150 ms QRS Dur : 102 ms QT Int : 428 ms P-R-T Axes : 046 038 046 degrees QTc Int : 484 ms Normal sinus rhythm Prolonged QT Abnormal ECG When compared with ECG of 22-FEB-2021 22:01, Premature ventricular complexes are no longer Present Confirmed by Santhosh Resendiz ([id number]) on 02/23/2021 6:31:55 PM Referred By: REFERRED SELF Confirmed By:Santhosh Resendiz
[2021-02-23] MEDS ORDERED: SODIUM CHLORIDE 0.9% 10ML FLUSH IV SCH (20:00)
[2021-02-23] MEDS ORDERED: REMDESIVIR 100 MG in SODIUM CHLORIDE 0.9% 230 ML IV SCH (20:00)
[2021-02-24] MEDS: AZITHROMYCIN 500 MG in DEXTROSE 5% 250 ML IV SCH (01:48)
--- NOTE | 2021-02-24 03:33 | Communication Note ---
Date of Service: February 24, 2021 Called to bedside by nursing staff following concern for concern of infusion site reaction to azithromycin. Earlier this morning patient was receiving azithromycin second dose following admission. Rapidly upon infusion into IV site on the left AC patient had development of pain and discomfort with surrounding irritation and redness. This seemingly significantly improved following stoppage of azithromycin infusion. Additionally IV site from left AC was removed. As this could potentially represent IV infiltration reaction or less likely antibiotic allergy, agree with removal of IV site and stopping antibiotics overnight. Upon chart review, patient here with Covid pneumonia with history of COPD, additionally has noted allergic reactions to Bactrim and levofloxacin in the past. Patient cannot recall if he has previously ever received azithromycin. Patient may benefit from antibiotic allergy testing as outpatient in the future.
[2021-02-24 07:52] LABS: Basophils # (auto) 0.02 K/uL (0-0.2); Basophils % (auto) 0.3 %; Eosinophils # (auto) 0.02 K/uL (0-0.5); Eosinophils % (auto) 0.3 %; Hematocrit (blood only) 43.3 % (42-52); Hemoglobin 14.8 g/dL (14.0-18.0); Immature Granulocytes # (auto) 0.02 K/uL (0.00-0.02); Immature Granulocytes % (auto) 0.3 %; Lymphocytes # (auto) 1.86 K/uL (1.2-3.4); Lymphocytes % (auto) 30.6 %; Mean Corpuscular Hemoglobin 30.3 pg (25-34); Mean Corpuscular Hgb Conc 34.2 g/dL (32-36); Mean Corpuscular Volume 88.7 fL (80-100); Mean Platelet Volume 11.1 fL (7.4-10.4); Monocytes # (auto) 0.87 K/uL (0.11-0.59); Monocytes % (auto) 14.3 %; Neutrophils # (auto) 3.28 K/uL (1.4-6.5); Neutrophils % (auto) 54.2 %; Platelet Count 343 K/uL (130-400); RDW Coefficient of Variation 13.2 % (11.5-14.5); RDW Standard Deviation 43.4 fL (36.4-46.3); Red Blood Count 4.88 M/uL (4.7-6.1); White Blood Count 6.07 K/uL (4.8-10.8)
[2021-02-24 08:30] LABS: Albumin Level 2.6 gm/dl (3.4-5.0); BUN Creatinine Ratio 17.6 (10-20); Calcium 8.5 mg/dl (8.5-10.1); Creatinine Clr Calc Pharmacy 102.8 ml/min; Est GFR (African American) 112.9 ml/min; Est GFR (Non-African American) 97.4 ml/min; Potassium 4.2 mmol/L (3.5-5.1)
[2021-02-24] MEDS: dexAMETHasone 6 MG in SYRINGE 0 ML IV SCH (08:31)
[2021-02-24] MEDS: FLUTICASONE/VILANTEROL 200/25MCG 14 PUFFS/INHALER INH SCH (08:32)
[2021-02-24] MEDS: ZINC SULFATE 220 MG CAPSULE PO SCH (08:32)
[2021-02-24] MEDS: METOPROLOL SUCC 25MG EXT REL TAB PO SCH (08:32)
[2021-02-24] MEDS: ENOXAPARIN INJ 30 MG/0.3 ML SYR SQ SCH ×2 (08:32→21:26)
[2021-02-24] MEDS: CHOLECALCIFEROL 1,000 UNITS 25 MCG TAB PO SCH (08:32)
[2021-02-24 08:33] LABS: Albumin Globulin Ratio 0.7 (0.9-2); Bilirubin,Total 0.5 mg/dl (0.2-1); Globulin 3.6 gm/dl (2.5-4.0); Total Protein 6.2 gm/dl (6.4-8.2)
--- NOTE | 2021-02-24 21:36 | Hospitalist Progress Note ---
Date of Service February 24, 2021 Assessment & Plan (1) Pneumonia due to COVID-19 virus: Plan: Acute hypoxic respiratory failure 2/2 COVID-19 pneumonia Patient received dexamethasone 10 mg IV in ER Continue Decadron 6 mg IV every morning Patient initially started on remdesivir IV per protocol, on clarification with the symptoms his onset was greater than 10 days ago. Given reduced benefit at 10 days we will discontinue remdesivir at this time Continue azithromycin 500 mg IV daily DuoNebs every 4 hours as needed Guaifenesin with codeine every 4 hours as needed Lovenox DVT prophylaxis Titrate SPO2 greater than 90% CMP daily -Patient is now on 2-3 L NC. will continue to monitor. (2) Hypoxia: Plan: See above (3) COPD, group D, by GOLD 2017 classification: Plan: Continue nebulizers as above continue formulary fluticasone Vilanterol conversion (4) Hypertension: Plan: Continue metoprolol succinate with hold parameters Plan: DVT prophylaxis: Lovenox Diet: Regular CODE STATUS: Full code Admission and Anticipated Discharge Date Admission Date: February 22, 2021 Subjective 56 yo male reports feeling better, but not at baseline. Review of Systems Review of Systems: All systems reviewed & are unremarkable except as noted in HPI & below Physical Exam Physical Exam: General: A&Ox3. NAD. Cooperative. HEENT: Atraumatic, normocephalic. Visual acuity and hearing grossly intact. Pupils equal and reactive to light. Pulm: Moderate air movement, diffusely coarse, no wheezes at time of assessment, no rales at time of assessment, symmetrical chest rise. No accessory muscle use of breathing. Cardiac: RRR, -mrg. Radial pulses intact and symmetrical. Abdominal: Nontender, nondistended, soft. BS present. Extremities: Warm, dry moving all extremities equally Results & Data Results & Data ([facility]) Vital Signs (Past 12 Hours) Vital Signs Temp Pulse Pulse Resp BP Pulse Ox 02/24/21 20:33 36.6 C 65 18 130/69 3 L 02/24/21 16:00 63 02/24/21 13:46 36.4 C L 58 L 16 111/68 93 PG Care Time/CCT Total # of Minutes Spent Total Time Spent with Patient: Total time spent is greater than 50% in coordination of care (as documented) at patient's floor/unit and/or counseling patient: Coding Level of Care Code 14914 Subseq Hosp Care Lvl 2 Diagnoses Pneumonia due to COVID-19 virus U07.1; J12.82 Hypoxia R09.02 COPD, group D, by GOLD 2017 classification J44.9 Hypertension I10
[2021-02-25 07:25] LABS: Basophils # (auto) 0.01 K/uL (0-0.2); Basophils % (auto) 0.2 %; Eosinophils # (auto) 0.01 K/uL (0-0.5); Eosinophils % (auto) 0.2 %; Hematocrit (blood only) 40.9 % (42-52); Hemoglobin 13.8 g/dL (14.0-18.0); Immature Granulocytes # (auto) 0.01 K/uL (0.00-0.02); Immature Granulocytes % (auto) 0.2 %; Lymphocytes # (auto) 2.08 K/uL (1.2-3.4); Lymphocytes % (auto) 34.7 %; Mean Corpuscular Hemoglobin 29.9 pg (25-34); Mean Corpuscular Hgb Conc 33.7 g/dL (32-36); Mean Corpuscular Volume 88.5 fL (80-100); Mean Platelet Volume 10.8 fL (7.4-10.4); Monocytes # (auto) 0.82 K/uL (0.11-0.59); Monocytes % (auto) 13.7 %; Neutrophils # (auto) 3.07 K/uL (1.4-6.5); Platelet Count 350 K/uL (130-400); RDW Coefficient of Variation 13.4 % (11.5-14.5); RDW Standard Deviation 43.8 fL (36.4-46.3); Red Blood Count 4.62 M/uL (4.7-6.1)
[2021-02-25 07:57] LABS: Albumin Level 2.5 gm/dl (3.4-5.0); BUN Creatinine Ratio 23.2 (10-20); Calcium 8.8 mg/dl (8.5-10.1); Creatinine Clr Calc Pharmacy 113.5 ml/min; Est GFR (African American) 117.6 ml/min; Est GFR (Non-African American) 101.4 ml/min; Potassium 4.1 mmol/L (3.5-5.1)
[2021-02-25 08:00] LABS: Albumin Globulin Ratio 0.7 (0.9-2); Bilirubin,Total 0.4 mg/dl (0.2-1); Globulin 3.4 gm/dl (2.5-4.0); Total Protein 5.9 gm/dl (6.4-8.2)
[2021-02-25] MEDS: CHOLECALCIFEROL 1,000 UNITS 25 MCG TAB PO SCH (08:36)
[2021-02-25] MEDS: dexAMETHasone 6 MG in SYRINGE 0 ML IV SCH (08:36)
[2021-02-25] MEDS: ENOXAPARIN INJ 30 MG/0.3 ML SYR SQ SCH (08:37)
[2021-02-25] MEDS: FLUTICASONE/VILANTEROL 200/25MCG 14 PUFFS/INHALER INH SCH (08:37)
[2021-02-25] MEDS: ZINC SULFATE 220 MG CAPSULE PO SCH (08:37)
[2021-02-25] MEDS: METOPROLOL SUCC 25MG EXT REL TAB PO SCH (08:38)
--- NOTE | 2021-02-27 20:26 | Discharge Summary ---
Date of Service February 25, 2021 Admission HPI Per Admitting Provider The patient is a 56-year-old male with a past medical history including COPD group D, polycythemia secondary hypoxia, pulmonary nodule, environmental allergies, nocturnal hypoxemia and hypertension. He presents as noted above, noting that his symptoms began about 9 days ago, and particularly worsened over the past 48 hours. Lowest pulse ox in the ED this evening was 87% on room air The patient was COVID-19 positive in ED this evening, and was given dexamethasone 10 mg IV by the ED Principal Diagnosis COVID 19 Pneumonia Discharge Exam General: A&Ox3. NAD. Cooperative. HEENT: Atraumatic, normocephalic. Visual acuity and hearing grossly intact. Pupils equal and reactive to light. Pulm: Moderate air movement, clear, no wheezes at time of assessment, no rales at time of assessment, symmetrical chest rise. No accessory muscle use of breathing. Cardiac: RRR, -mrg. Radial pulses intact and symmetrical. Abdominal: Nontender, nondistended, soft. BS present. Extremities: Warm, dry moving all extremities equally Discharge Data Allergies Allergy/AdvReac Type Severity Reaction Status Date / Time sulfamethoxazole Allergy Severe Unknown Verified 02/22/21 23:44 [From Bactrim] levofloxacin Allergy Hives Verified 02/22/21 23:44 Consultations 02/22/21 23:25 ED Decision to Admit Stat Hospital Course (1) Pneumonia due to COVID-19 virus: Acute hypoxic respiratory failure 2/2 COVID-19 pneumonia Patient received dexamethasone 10 mg IV in ER Continue Decadron 6 mg IV every morning Patient initially started on remdesivir IV per protocol, on clarification with the symptoms his onset was greater than 10 days ago. Given reduced benefit at 10 days we will discontinue remdesivir at this time Continue azithromycin 500 mg IV daily DuoNebs every 4 hours as needed Guaifenesin with codeine every 4 hours as needed Lovenox DVT prophylaxis Ok to discharge patient: will be on supplemental oxygen on ambulation. WILL CONTINUE ON DEXAMETHASONE. (2) Hypoxia: See above (3) COPD, group D, by GOLD 2017 classification: Continue nebulizers as above continue formulary fluticasone Vilanterol conversion (4) Hypertension: Continue metoprolol succinate with hold parameters DVT prophylaxis: Lovenox Diet: Regular CODE STATUS: Full code Total Time Total Time Spent Total Time Spent (In Minutes): 32 Discharge Plan Discharge Items Patient Disposition: Home - Self-Care Reason For Visit: COVID-19 PNEUMONIA WITH HYPOXIA Discharge Diagnosis: COVID 19 Condition on Discharge: Fair Activity: Resume your previous activity Non-emergency contact: Primary Care Provider Call non-emergency contact if: you have any medication questions Follow-up/Referrals: Mayuri Mayers MD [Primary Care Provider] - 03/12/21 3:00 pm Diet: Regular Addtl Attending Provider Instructions: You have been hospitalized for an acute medical problem. During your stay at [facility], we have made an effort to correct the problem that brought you to the hospital while keeping you as comfortable as possible. Medications were used to bring your condition under control and your discharge instructions will include directions for any medications you should take after leaving the hospital. Please make sure you see your Primary Care Provider as part of your follow up plan. Continue oxygen 2 liters when you walk. Continue dexamethasone for a week once in the morning. Pending Studies at Discharge: No Stand-Alone Forms: [facility], Work/School Release, Smoking Cessation Medications and DC Order Prescriptions: New dexamethasone 6 mg tablet 6 mg PO DAILY Qty: 7 RF: 0 Continued albuterol sulfate [ProAir HFA] 90 mcg/actuation HFA aerosol inhaler 2 puff INHALATION Q4 PRN (Reason: Shortness Of Breath Or Wheezing) Qty: 6.7 RF: 2 budesonide-formoterol [Symbicort] 80-4.5 mcg/actuation HFA aerosol inhaler 2 puff inhalation BID Qty: 10.2 RF: 2 metoprolol succinate [Toprol XL] 25 mg tablet extended release 24 hr 25 mg PO QAM RF: 0 betamethasone dipropionate 0.05 % cream 1 applic topical BID PRN (Reason: FLARE UPS) RF: 0 Discharge Orders: Discharge Order (Routine); Ordered 02/25/21 Ordered By: Adonay Novoa Admission Data Admit Date/Time: 02/22/21 23:53 Attending Provider: Adonay Novoa Admit Provider: Champ Ramirez Primary Care Provider: Mayuri Mayers Other Providers: Champ Ramirez Other Interventions: Discharge Summary Assessment (RN) Last Done: 02/25/21 15:29 Coding Level of Care Code D/C DAY MANAGEMENT >30 MINS Diagnoses Pneumonia due to COVID-19 virus U07.1; J12.82 Hypoxia R09.02 COPD, group D, by GOLD 2017 classification J44.9 Hypertension I10
== END 2021-02-25 17:24 | disposition home or self-care (01) | DRG 177 ==
LOC: ED 21:45 → EDINP 23:53 → SUATTDRO 23:53 → 2W 02-23 00:24

== ENCOUNTER 2023-09-02 16:23 | Inpatient (IN) ==
--- NOTE | 2023-09-02 16:57 | ED Triage Note ---
Date of Service September 02, 2023 Provider in Triage Author: Jewels Choi History of Present Illness This patient was briefly evaluated while in triage. An abbreviated physical exam was performed. This patient is a 58-year-old Male who presents to the ED for evaluation of shortness of breath for past week. Reports history of COPD, notes he lost his insurance and cannot afford his inhalers and has not been taking them for a while. Also complains of chest tightness. Symptoms are worse with minimal exertion. Physical Exam CONSTITUTIONAL: No acute distress. Well appearing. RESPIRATORY: Nonlabored breathing. NEUROLOGIC: Alert and oriented X 4 with normal affect. Initial orders for labs and / or imaging were placed and patient was placed in the waiting area until a bed is available. Please see further documentation for the full ED course. MDM / Impression Impression Impression: Pneumonia, Hypoxia, Acute exacerbation of chronic obstructive pulmonary disease Impression: Pneumonia Qualifiers: Pneumonia type: due to unspecified organism Laterality: bilateral Lung location: lower lobe of lung Qualified Code(s): J18.9 - Pneumonia, unspecified organism
[2023-09-02 17:57] LABS: Basophils # (auto) 0.06 K/uL (0.00-0.20); Basophils % (auto) 1.1 %; Eosinophils # (auto) 0.91 K/uL (0.00-0.50); Eosinophils % (auto) 16.9 %; Hematocrit (blood only) 44.1 % (42.0-52.0); Hemoglobin 14.7 g/dl (14.0-18.0); Immature Granulocytes # (auto) 0.02 K/uL (0.01-0.20); Immature Granulocytes % (auto) 0.4 %; Lymphocytes # (auto) 1.09 K/uL (1.20-3.40); Lymphocytes % (auto) 20.2 %; Mean Corpuscular Hemoglobin 30.4 pg (25.0-34.0); Mean Corpuscular Hgb Conc 33.3 g/dL (32.0-36.0); Mean Corpuscular Volume 91.3 fL (80.0-100.0); Mean Platelet Volume 10.1 fL (9.4-12.4); Monocytes # (auto) 0.84 K/uL (0.11-0.59); Monocytes % (auto) 15.6 %; Neutrophils # (auto) 2.48 K/uL (1.40-6.50); Neutrophils % (auto) 45.8 %; Platelet Count 235 K/uL (130-400); RDW Coefficient of Variation 13.3 % (11.5-14.5); Red Blood Count 4.83 M/uL (4.70-6.10)
--- NOTE | 2023-09-02 17:59 | XRay Report ---
XR chest 1V portable CLINICAL HISTORY: Chest pain, nonspecific TECHNIQUE: Single frontal radiograph of the chest was obtained. Comparison: Comparison is made to chest radiograph 10/27/[address] chest 10/27/2022 FINDINGS: No lines and tubes are seen. The cardiomediastinal silhouette is normal. Emphysema and bibasilar atel ectasis are seen. No evidence of pleural effusion or pneumothorax. IMPRESSION: No acute chest disease. ACT 112: Negative or not required by law. Electronically signed by: Ruddy Nova M.D. 09/02/2023 5:57 PM
[2023-09-02 18:22] LABS: INR 0.9 (0.9-1.1); Partial Thromboplastin Ratio 0.9; Partial Thromboplastin Time 25 Seconds (21-31); Prothrombin Time 10.3 Seconds (9.0-12.0)
[2023-09-02 18:24] LABS: Albumin Globulin Ratio 1.6 (0.9-2); Albumin Level 4.2 gm/dl (3.4-5.0); BUN Creatinine Ratio 13.8 (10-20); Bilirubin,Total 0.5 mg/dl (0.2-1.0); Calcium 9.4 mg/dl (8.6-10.3); Creatinine Clr Calc Pharmacy 72.3 ml/min; Est GFR (African American) 69.7 ml/min; Est GFR (Non-African American) 60.1 ml/min; Globulin 2.7 gm/dl (2.5-4.0); Potassium 3.8 mmol/L (3.5-5.1); Total Protein 6.9 gm/dl (6.0-8.3)
[2023-09-02 18:31] LABS: Troponin I High Sensitivity 6.7 pg/ml (0-20)
[2023-09-02 18:59] LABS: D Dimer 1360 ug/L FEU (0-500)
[2023-09-02] MEDS: dexAMETHasone**PF** 10 MG/ML VIAL IV ONE (19:28)
[2023-09-02 19:31] LABS: Base Excess VBG 3.9 mEq/L; HCO3 VBG 30 mmol/L; Oxygen Saturation VBG < 60.0 %; PCO2 VBG 51 mmHg (38-50); PO2 VBG 23 mmHg; pH VBG 7.38 (7.36-7.41)
--- NOTE | 2023-09-02 19:33 | Emergency Department Note ---
Impression & Plan Pneumonia, Hypoxia, Acute exacerbation of chronic obstructive pulmonary disease ED Provider Note NAME: CORIN WALDROP AGE: 58 SEX: M : 1965 ARRIVES VIA: Walk-In INFORMANT: Patient, ED PROVIDER(S): Christian Landa DO CHIEF COMPLAINT: Shortness of breath HPI: The patient is a 58-year-old male who presented to the emergency department for shortness of breath. His insurance recently ran out and the patient has been without some of his medications including his inhalers. He went to see his family doctor and was given an inhaler but he has been unable to get any other prescriptions since. The patient is not currently on steroids. He has noticed a mildly productive cough. The patient denies having any hemoptysis or leg swelling. He denies having any back pain or recent falls. The patient states he is notices had a low oxygen saturation as he has a pulse ox at home. ROS: See above HPI for pertinent positives & negatives. A total of 10 systems reviewed and were otherwise negative. PAST MEDICAL HISTORY: See Below PAST SURGICAL HISTORY: See Below FAMILY HISTORY: See Below SOCIAL HISTORY: See Below HOME MEDICATIONS: See Below ALLERGIES: See Below VITALS: See Below PHYSICAL EXAMINATION: GENERAL: The patient is awake and alert. He appears somewhat uncomfortable. EYES: The conjunctivae are clear. The pupils are round and reactive. EARS, NOSE, MOUTH AND THROAT: The nose is without any evidence of any deformity. NECK: The neck is nontender and supple. RESPIRATORY: Diminished breath sounds are noted throughout. There is scattered wheezing in both upper lung olivera. There is significant tachypnea as well as conversational dyspnea. CARDIOVASCULAR: Regular rate and rhythm noted there no murmurs rubs or gallops normal S1 normal S2. GASTROINTESTINAL: The abdomen is soft. Abdomen is nontender. MUSCULOSKELETAL/EXTREMITIES: There is no evidence of gross deformity full range of motion is noted in the hips and shoulders. SKIN: There is no obvious evidence of any rash. There are no petechiae, pallor or cyanosis noted. NEUROLOGIC: Patient is awake alert and oriented x3 MEDICAL DECISION MAKING: The patient is a 58-year-old male who presented to the emergency department for shortness of breath. The patient was not able to get his home medications for his COPD in many weeks. He was given an inhaler by his primary care physician but unfortunately his insurance issues were not resolved and the patient continued to worsen especially over the course the last few days. The patient was hypoxic with any exertion. Lung sounds were abnormal. Radiography did appear to be consistent with bilateral lower lobe infiltrates although this could be related to his other medical conditions. The patient was treated with IV fluids IV steroids hour-long DuoNeb and IV antibiotics in the emergency department. I discussed patient's laboratory and radiographic studies with him. I also discussed his condition with the on-call [facility]. They have agreed to evaluate the patient in the emergency department for further management and disposition. Triage Nursing notes reviewed. Prior medical records reviewed Vital Signs: reviewed and remarkable for hypoxia and hypertension. Differential diagnosis: Reactive airway disease, pneumonia, pneumothorax, COPD, CHF, infections, cardiac ischemia, pulmonary embolism, musculoskeletal, gastrointestinal, as well as other pathologies. ER treatment provided: See below Diagnostics interpreted by me: ECG: EKG was obtained in the emergency department. My interpretation is normal sinus rhythm at 70 bpm. There is no ectopy. There is no acute ST segment abnormalities noted. This was compared to a tracing from February 23, 2021. No changes were noted Cardiac Monitoring: An order was placed for continuous cardiac monitoring. The monitor shows a rate of 82 bpm with sinus rhythm. Laboratory studies: As stated above and show below. Imaging studies: See below. Radiographic imaging was reviewed by myself Consultation(s): I discussed this case with Dr. Decker who is on-call for the [facility]. ED COURSE: Procedures: none Critical Care: I have personally spent greater than 55 minutes of critical care time in the direct management of this patient. This includes bedside care, interpretation of diagnostic studies, and testing, discussion with consultants, patient, and family members, and other required patient management activities. This 55 minutes is in excess of all separately billable procedures. Past Med/Surg History Problem List (Updated 09/02/23 @ 22:49 by Champ Ramirez MD) Pneumonia of both lower lobes Acute exacerbation of chronic obstructive pulmonary disease (Acute) Hypoxia (Acute) Pneumonia (Acute) History of nicotine dependence Mediastinal lymphadenopathy History of heart disease (Chronic) Pulmonary emphysema (Chronic) Nocturnal hypoxia (Chronic) Environmental allergies (Chronic) COPD (chronic obstructive pulmonary disease) with chronic bronchitis (Chronic) Pulmonary nodule COPD, group D, by GOLD 2017 classification Polycythemia secondary to hypoxia Cellulitis of foot, right (Acute) Skin lesion of foot Contact dermatitis (Acute) Dyspnea Cough COVID-19 (Acute) Pneumonia due to COVID-19 virus Hypoxia Hypertension Medical History Vasculitis History of fracture HX OF JAW BROKEN, WIRED, NO CURRENT HARDWARE, DENIES PROBLEMS WITH JAW MOVEMENT Back problem HX OF BACK BROKEN - NO SURGERY, HEALED ON OWN Mini stroke ? HX OF, POSSIBLE HX OF MENTIONED 15 YR AGO TO PT - NO RESIDUAL EFFECTS COPD (chronic obstructive pulmonary disease) Fast heart beat History of COPD Surgical History History of hand surgery 12/06/18 - FOR INFECTION OF RIGHT POINTER FINGER - HEALED History of left heart catheterization 2 YR AGO, PT REPORTS HEART CATH - FAST HEART BEAT...NO FINDINGS ([facility]) Family History Other No pertinent family history Social History Smoking Status: Current every day smoker Tobacco Type: Smokeless Tobacco (Dip or Chew) Cigarettes Per Day: 40; Second Hand Exposure: Yes; Do You Dip or Chew Tobacco: Yes (1 can/2 days); Hx Alcohol Use: No Hx Substance Use: No Preferred Language: [place] Communication Ability: Effective Mounter Saxophones Required: No Beliefs That Will Affect Care: None marital status: Current Living Situation: Spouse current occupational 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 Feels Safe at Home: Yes Assistive Devices: Oxygen - Continuous Allergies Allergies Allergy/AdvReac Type Severity Reaction Status Date / Time sulfamethoxazole Allergy Severe Unknown Verified 05/20/23 15:54 [From Bactrim] levofloxacin Allergy Hives Verified 05/20/23 15:54 Home Meds Home Medications Medication Instructions Recorded Confirmed metoprolol succinate 25 mg 12.5 mg PO AMHS 01/18/18 09/02/23 tablet,extended release 24 hr (Toprol XL) Previous Rx's Medication Instructions Recorded albuterol sulfate 90 mcg/actuation 2 puff inhalation Q4 PRN Shortness 07/15/22 aerosol inhaler (ProAir HFA) Of Breath Or Wheezing #6.7 grams budesonide-formoterol HFA 80 2 puff inhalation BID #10.2 grams 12/18/22 mcg-4.5 mcg/actuation aerosol inhaler (Symbicort) tiotropium bromide 2.5 2 puff inhalation DAILY #4 grams 12/18/22 mcg/actuation mist for inhalation (Spiriva Respimat) upadacitinib 15 mg tablet,extended 15 mg PO DAILY #30 tabs 04/10/23 release 24 hr (Rinvoq) Results & Data (ED) Vital Signs Vital Signs - 24 hr 09/02/23 16:53 09/02/23 19:07 09/02/23 19:07 Temperature 36.7 C Temperature Source Temporal Artery Scan Pulse Rate 72 Pulse Rate [Left Finger] 67 Pulse Rhythm [Left Finger] Pulse Strength [Left Finger] Respiratory Rate 18 30 H Respiratory Effort / Characteristics Non-Labored Spontaneous Respiratory Depth Normal Blood Pressure 166/96 H Blood Pressure [Right Arm] 189/88 H Blood Pressure Mean 119 Blood Pressure Mean [Right Arm] 121 Blood Pressure Position Sitting Blood Pressure Position [Right Arm] Sitting Pulse Oximetry 92 77 L 94 Oxygen Delivery Method Room Air Room Air Nasal Cannula Oxygen Flow Rate 5 Sepsis Recent Fever Within 48 Hours No Sepsis New/Unexplained Change in Mental Status No Sepsis Action Taken by Nursing No Action Required 09/02/23 19:18 09/02/23 19:32 09/02/23 19:40 Temperature Temperature Source Pulse Rate 76 Pulse Rate [Left Finger] 74 70 Pulse Rhythm [Left Finger] Regular Pulse Strength [Left Finger] Normal Respiratory Rate 20 22 Respiratory Effort / Characteristics Labored Spontaneous Respiratory Depth Normal Blood Pressure Blood Pressure [Right Arm] 166/113 H Blood Pressure Mean Blood Pressure Mean [Right Arm] 130 Blood Pressure Position Blood Pressure Position [Right Arm] Sitting Pulse Oximetry 94 93 Oxygen Delivery Method Nasal Cannula Nasal Cannula Oxygen Flow Rate 3 3 Sepsis Recent Fever Within 48 Hours Sepsis New/Unexplained Change in Mental Status Sepsis Action Taken by Intermediate Medications Current Medication List: was personally reviewed by me Laboratory Data Attestation: I reviewed the patient's lab results. 09/02/23 17:35 09/02/23 17:35 Lab Results 09/02/23 09/02/23 09/02/23 Range/Units 17:35 19:21 19:22 WBC 5.40 (4.8-10.8) K/ul RBC 4.83 (4.70-6.10) M/uL Hgb 14.7 (14.0-18.0) g/dl Hct 44.1 (42.0-52.0) % MCV 91.3 (80.0-100.0) fL MCH 30.4 (25.0-34.0) pg MCHC 33.3 (32.0-36.0) g/dL RDW Std Deviation 45.0 (36.4-46.3) fL RDW Coeff of Chad 13.3 (11.5-14.5) % Plt Count 235 (130-400) K/uL MPV 10.1 (9.4-12.4) fL Immature Gran % (Auto) 0.4 % Neut % (Auto) 45.8 % Lymph % (Auto) 20.2 % Pettis % (Auto) 15.6 % Eos % (Auto) 16.9 % Baso % (Auto) 1.1 % Neut # (Auto) 2.48 (1.40-6.50) K/uL Lymph # (Auto) 1.09 L (1.20-3.40) K/uL Pettis # (Auto) 0.84 H (0.11-0.59) K/uL Eos # (Auto) 0.91 H (0.00-0.50) K/uL Baso # (Auto) 0.06 (0.00-0.20) K/uL Immature Gran # (Auto) 0.02 (0.01-0.20) K/uL PT 10.3 (9.0-12.0) Seconds INR 0.9 (0.9-1.1) APTT 25 (21-31) Seconds PTT Ratio 0.9 D-Dimer 1360 H* (0-500) ug/L FEU VBG pH 7.38 (7.36-7.41) VBG pCO2 51 H (38-50) mmHg VBG pO2 23 mmHg VBG HCO3 30 mmol/L VBG O2 Saturation < 60.0 % VBG Base Excess 3.9 mEq/L Sodium 139 (136-145) mmol/L Potassium 3.8 (3.5-5.1) mmol/L Chloride 103 (98-107) mmol/L Carbon Dioxide 29 (21-32) mmol/L Anion Gap 7 (3-11) BUN 18 (6-23) mg/dl Creatinine 1.30 (0.6-1.4) mg/dl Est Cr Clr Drug Dosing 72.3 ml/min Est GFR ( Amer) 69.7 ml/min Est GFR (Non-Af Amer) 60.1 ml/min BUN/Creatinine Ratio 13.8 (10-20) Glucose 90 (70-99(Fasting)) mg/dl Calcium 9.4 (8.6-10.3) mg/dl Total Bilirubin 0.5 (0.2-1.0) mg/dl AST 22 (13-39) U/L ALT 18 (7-52) U/L Alkaline Phosphatase 122 H (34-104) U/L Troponin I High Sens 6.7 (0-20) pg/ml Total Protein 6.9 (6.0-8.3) gm/dl Albumin 4.2 (3.4-5.0) gm/dl Globulin 2.7 (2.5-4.0) gm/dl Albumin/Globulin Ratio 1.6 (0.9-2) Lipase 8 L (11-82) U/L Procalcitonin < 0.02 (0-0.5) ng/ml Adenovirus (PCR) Not Detected (NotDetected) B. pertussis DNA (PCR) Not Detected (NotDetected) B.parapertussis DNA PCR Not Detected (NotDetected) C. pneumoniae DNA (PCR) Not Detected (NotDetected) Coronavirus OC43 (PCR) Not Detected (NotDetected) Coronavirus HKU1 (PCR) Not Detected (NotDetected) Coronavirus 229E (PCR) Not Detected (NotDetected) SARS-CoV-2 (PCR) Not Detected (NotDetected) Coronavirus NL63 (PCR) Not Detected (NotDetected) Human Metapneumovir PCR Not Detected (NotDetected) Influenza Type A (PCR) Not Detected (NotDetected) Influenza Type B (PCR) Not Detected (NotDetected) M. pneumoniae (PCR) Not Detected (NotDetected) Parainfluenza 1 (PCR) Not Detected (NotDetected) Parainfluenza 2 (PCR) Not Detected (NotDetected) Parainfluenza 3 (PCR) Not Detected (NotDetected) Parainfluenza 4 (PCR) Not Detected (NotDetected) RSV (PCR) Not Detected (NotDetected) Entero/Rhino (PCR) Not Detected (NotDetected) Administered Medications Acetaminophen (Acetaminophen 325 Mg Tab) 650 mg PO Q4H PRN PRN Reason: Pain or Fever Stop: 10/02/23 22:49 Last Admin: 09/02/23 23:50 Dose: 650 mg Documented By: FELICIANO Discontinued Medications Albuterol (Albut/Ipratrop 3mg/0.5mg Neb 3 Ml Vial) 12 ml NEB ONE ONE; Protocol Stop: 09/02/23 19:11 Last Admin: 09/02/23 19:40 Dose: 12 ml Documented By: CARL Amlodipine Besylate (Amlodipine Besylate 5 Mg Tab) 5 mg PO NOW ONE Stop: 09/02/23 22:56 Last Admin: 09/03/23 00:02 Dose: Not Given Documented By: FELICIANO Dexamethasone Sodium Phosphate (DexamethasonePf 10 Mg/Ml Vial) 10 mg IV NOW ONE Stop: 09/02/23 19:11 Last Admin: 09/02/23 19:28 Dose: 10 mg Documented By: JON Guaifenesin (Guaifenesin 600 Mg Tabcr) 1,200 mg PO NOW STA Stop: 09/02/23 22:29 Last Admin: 09/02/23 23:50 Dose: 1,200 mg Documented By: FELICIANO Sodium Chloride (Nss) 1,000 mls @ 999 mls/hr IV .Q1H1M ONE Stop: 09/02/23 21:31 Last Infusion: 09/02/23 22:45 Dose: Infused Documented By: Admin: 09/02/23 20:58 Dose: 999 mls/hr Documented By: JON Cefepime HCl (Maxipime) 2,000 mg in 20 mls @ 5 mls/min IV NOW STA; Protocol Stop: 09/02/23 22:05 Last Admin: 09/02/23 22:46 Dose: 5 mls/min Documented By: JON Azithromycin 500 mg/ Dextrose 255 mls @ 125 mls/hr IV NOW ONE Stop: 09/03/23 00:04 Last Admin: 09/02/23 23:50 Dose: 125 mls/hr Documented By: FELICIANO Magnesium Sulfate/Dextrose (Magnesium Sulfate / D5w) 1 gm in 100 mls @ 100 mls/hr IV NOW STA Stop: 09/02/23 23:01 Last Admin: 09/02/23 22:46 Dose: 100 mls/hr Documented By: JON Ioversol (Optiray 320 125ml) 116 ml IV ONCE ONE Stop: 09/02/23 20:52 Last Admin: 09/02/23 20:53 Dose: 116 ml Documented By: ANTHONY Imaging Data Attestation: I personally reviewed and interpreted this imaging study as follows: My Impression: CT of the chest was obtained in the emergency department. My interpretation is lower lobe opacification noted, there is no free air, bolus emphysema was noted, final report below. 1 view chest x-ray was obtained in the emergency department. There does appear to be bilateral lower lobe atelectasis, final report below. Radiologist's Impression: Chest X-Ray 09/02/23 16:55 XR chest 1V portable CLINICAL HISTORY: Chest pain, nonspecific TECHNIQUE: Single frontal radiograph of the chest was obtained. Comparison: Comparison is made to chest radiograph 10/27/[address] chest 10/27/2022 FINDINGS: No lines and tubes are seen. The cardiomediastinal silhouette is normal. Emphysema and bibasilar atelectasis are seen. No evidence of pleural effusion or pneumothorax. IMPRESSION: No acute chest disease. ACT 112: Negative or not required by law. Electronically signed by: Ruddy Nova M.D. 09/02/2023 5:57 PM Chest CTA 09/02/23 19:01 Exam(s): CTA CHEST IV Amt: 116 ml opti 320 EXAM: CT Angiography Chest With Intravenous Contrast CLINICAL HISTORY: Reason for exam: + dimer, SOB. TECHNIQUE: Axial computed tomographic angiography images of the chest with intravenous contrast. CTDI is 11.87 mGy and DLP is 489.66 mGy-cm. Automated exposure control was utilized for the study. A dose lowering technique was utilized adhering to the principles of ALARA. MIP reconstructed images were created and reviewed. COMPARISON: No relevant prior studies available. FINDINGS: Pulmonary arteries: Unremarkable. No acute pulmonary embolism. Aorta: No acute findings. No thoracic aortic aneurysm. Lungs: Dependent airspace consolidations, consistent with multilobar pneumonia. Correlate for aspiration. Severe centrilobular emphysema, preferentially along the upper lobes. Pleural space: Unremarkable. No significant effusion. No pneumothorax. Heart: Unremarkable. No cardiomegaly. No significant pericardial effusion. No evidence of RV dysfunction. Bones/joints: No acute fracture. No dislocation. Soft tissues: Unremarkable. Lymph nodes: Unremarkable. No enlarged lymph nodes. IMPRESSION: 1. No acute pulmonary embolism. 2. Dependent airspace consolidations, consistent with multilobar pneumonia. Correlate for aspiration. 3. Severe centrilobular emphysema, preferentially along the upper lobes. Electronically signed by: Deepak Bennett MD 09/02/23 21:45 PM Discharge Plan Visit Data Chief Complaint: Shortness of Breath/Dyspnea Stated Complaint: SOB, LOW OX/83 ED Provider: Christian Landa Discharge Problem: Pneumonia, Hypoxia, Acute exacerbation of chronic obstructive pulmonary disease Patient Disposition: Admitted As Inpatient Discharge Instructions Interventions: ED Discharge Assessment Last Done: 09/02/23 22:51 Discharge Problem: Pneumonia Qualifiers: Pneumonia type: due to unspecified organism Laterality: bilateral Lung location: lower lobe of lung Qualified Code(s): J18.9 - Pneumonia, unspecified organism
[2023-09-02] MEDS: ALBUT/IPRATROP 3MG/0.5MG NEB 3 ML VIAL NEB ONE (19:40)
[2023-09-02 20:21] LABS: Adenovirus PCR Not Detected (NotDetected); Bordetella parapertussis PCR Not Detected (NotDetected); Bordetella pertussis PCR Not Detected (NotDetected); Chlamydia pneumoniae PCR Not Detected (NotDetected); Coronavirus 229E PCR Not Detected (NotDetected); Coronavirus CoV-2 (COVID19)PCR Not Detected (NotDetected); Coronavirus HKU1 PCR Not Detected (NotDetected); Coronavirus NL63 PCR Not Detected (NotDetected); Coronavirus OC43PCR Not Detected (NotDetected); Human Metapneumovirus PCR Not Detected (NotDetected); Influenza A PCR Not Detected (NotDetected); Influenza B PCR Not Detected (NotDetected); Mycoplasma pneumoniae PCR Not Detected (NotDetected); Parainfluenza Virus 1 PCR Not Detected (NotDetected); Parainfluenza Virus 2 PCR Not Detected (NotDetected); Parainfluenza Virus 3 PCR Not Detected (NotDetected); Parainfluenza Virus 4 PCR Not Detected (NotDetected); Respiratory Syncytial VirusPCR Not Detected (NotDetected); Rhinovirus/Enterovirus PCR Not Detected (NotDetected)
[2023-09-02] MEDS: OPTIRAY 320 125ml IV ONE (20:53)
[2023-09-02] MEDS: SODIUM CHLORIDE 0.9% 1,000 ML IV ONE (20:58)
--- NOTE | 2023-09-02 21:46 | CT Scan Report ---
Exam(s): CTA CHEST IV Amt: 116 ml opti 320 EXAM: CT Angiography Chest With Intravenous Contrast CLINICAL HISTORY: Reason for exam: + dimer, SOB. TECHNIQUE: Axial computed tomographic angiography images of the chest with intravenous contrast. CTDI is 11.87 mGy and DLP is 489.66 mGy-cm. Automated exposure control was utilized for the study. A dose lowering technique was utilized adhering to the principles of ALARA. MIP reconstructed images were created and reviewed. COMPARISON: No relevant prior studies available. FINDINGS: Pulmonary arteries: Unremarkable. No acute pulmonary embolism. Aorta: No acute findings. No thoracic aortic aneurysm. Lungs: Dependent airspace consolidations, consistent with multilobar pneumonia. Correlate for aspiration. Severe centrilobular emphysema, preferentially along the upper lobes. Pleural space: Unremarkable. No significant effusion. No pneumothorax. Heart: Unremarkable. No cardiomegaly. No significant pericardial effusion. No evidence of RV dysfunction. Bones/joints: No acute fracture. No dislocation. Soft tissues: Unremarkable. Lymph nodes: Unremarkable. No enlarged lymph nodes. IMPRESSION: 1. No acute pulmonary embolism. 2. Dependent airspace consolidations, consistent with multilobar pneumonia. Correlate for aspiration. 3. Severe centrilobular emphysema, preferentially along the upper lobes. Electronically signed by: Deepak Bennett MD 09/02/23 21:45 PM
--- NOTE | 2023-09-02 22:30 | History & Physical Report ---
Date of Service September 02, 2023 Assessment & Plan (1) Pneumonia of both lower lobes: (2) Acute exacerbation of chronic obstructive pulmonary disease: (3) History of nicotine dependence: (4) Mediastinal lymphadenopathy: (5) Nocturnal hypoxia: (6) COPD, group D, by GOLD 2017 classification: (7) Contact dermatitis: (8) Hypertension: Plan Multi lobar pneumonia/pneumonia both lower lobes/acute respiratory failure with hypoxia- From the ED received an hour-long DuoNeb, dexamethasone 10 mg IV, normal saline 1 L, Added azithromycin 500 mg IV and cefepime 2 g IV to be given in ED Azithromycin 500 mg IV daily Cefepime 2 g IV every 12 hours Methylprednisolone 40 mg IV every 12 hours Duonebs every 4 hours while awake and every 2 hours when necessary. Guaifenesin extended release 1200 mg p.o. 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 Ma Dermatitis- History of significant resistant dermatitis of bilateral lower extremities and right upper extremity He reports his symptoms improved in 2 days after starting Rinvok, with failure of multiple medications previously Hypertension- Has been on metoprolol succinate 12.5 mg twice daily in the outpatient setting, but has not taken them for a while Give cardizem 30mg po now, then TID, and change to CD when dose is determined History of Present Illness Chief Complaint: The patient presents to the emergency department shortness of breath, chronically productive cough, all of which has been worse since his insurance ran out and he has been unable to get refills on medications Primary Care Provider: Mayuri Mayers MD The patient is a 58-year-old male history including mediastinal lymphadenopathy pulmonary emphysema, nocturnal hypoxia, COPD group D, polycythemia secondary to hypoxia, chronic dermatitis hypertension. The patient has had worsening symptoms since he ran out of his medications due to insurance issues, which she is currently working on. He did get a sample of a inhaler from his family doctor, which he has been using. He presents to the emergency department due to worsening symptoms as noted. Allergies Allergy/AdvReac Type Severity Reaction Status Date / Time sulfamethoxazole Allergy Severe Unknown Verified 05/20/23 15:54 [From Bactrim] levofloxacin Allergy Hives Verified 05/20/23 15:54 Home Medications Medication Instructions Recorded Confirmed Type metoprolol succinate 25 mg 12.5 mg PO AMHS 01/18/18 09/02/23 History tablet,extended release 24 hr (Toprol XL) albuterol sulfate 90 mcg/actuation 2 puff inhalation Q4 PRN Shortness 07/15/22 09/02/23 Rx aerosol inhaler (ProAir HFA) Of Breath Or Wheezing #6.7 grams budesonide-formoterol HFA 80 2 puff inhalation BID #10.2 grams 12/18/22 09/02/23 Rx mcg-4.5 mcg/actuation aerosol inhaler (Symbicort) tiotropium bromide 2.5 2 puff inhalation DAILY #4 grams 12/18/22 09/02/23 Rx mcg/actuation mist for inhalation (Spiriva Respimat) upadacitinib 15 mg tablet,extended 15 mg PO DAILY #30 tabs 04/10/23 09/02/23 Rx release 24 hr (Rinvoq) Past Med/Surg History Problem List (Updated 09/02/23 @ 22:49 by Champ Ramirez MD) Pneumonia of both lower lobes Acute exacerbation of chronic obstructive pulmonary disease (Acute) Hypoxia (Acute) Pneumonia (Acute) History of nicotine dependence Mediastinal lymphadenopathy History of heart disease (Chronic) Pulmonary emphysema (Chronic) Nocturnal hypoxia (Chronic) Environmental allergies (Chronic) COPD (chronic obstructive pulmonary disease) with chronic bronchitis (Chronic) Pulmonary nodule COPD, group D, by GOLD 2017 classification Polycythemia secondary to hypoxia Cellulitis of foot, right (Acute) Skin lesion of foot Contact dermatitis (Acute) Dyspnea Cough COVID-19 (Acute) Pneumonia due to COVID-19 virus Hypoxia Hypertension Medical History Vasculitis History of fracture HX OF JAW BROKEN, WIRED, NO CURRENT HARDWARE, DENIES PROBLEMS WITH JAW MOVEMENT Back problem HX OF BACK BROKEN - NO SURGERY, HEALED ON OWN Mini stroke ? HX OF, POSSIBLE HX OF MENTIONED 15 YR AGO TO PT - NO RESIDUAL EFFECTS COPD (chronic obstructive pulmonary disease) Fast heart beat History of COPD Surgical History History of hand surgery 12/06/18 - FOR INFECTION OF RIGHT POINTER FINGER - HEALED History of left heart catheterization 2 YR AGO, PT REPORTS HEART CATH - FAST HEART BEAT...NO FINDINGS ([facility]) Family History Other No pertinent family history Social History Smoking Status: Current every day smoker Tobacco Type: Smokeless Tobacco (Dip or Chew) Cigarettes Per Day: 40; Second Hand Exposure: Yes; Do You Dip or Chew Tobacco: Yes (1 can/2 days); Hx Alcohol Use: No Hx Substance Use: No Preferred Language: Turkish Communication Ability: Effective 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: No Beliefs That Will Affect Care: None marital status: Current Living Situation: Spouse current occupational 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 Feels Safe at Home: Yes Assistive Devices: Oxygen - Continuous Review of Systems Review of Systems: The patient denies chest pain, palpitations, lower extremity swelling, sore throat, fevers, chills, sweats, nausea, vomiting, diarrhea , constipation, abdominal pain, pelvic pain, blood in urine or stool, dysuria, urinary frequency or urgency, lightheadedness, dizziness, headache, memory loss, loss of consciousness, rash, abnormal bruising or bleeding, imbalance, focal or generalized weakness, numbness or tingling in arms or legs, generalized arthralgias or myalgias, back or neck pain, or night sweats. The review of systems is otherwise negative other than for that already noted above, and at least 10 systems have been reviewed. Physical Exam Physical Exam: The patient is awake, alert and oriented 3, well developed and well nourished, normocephalic and atraumatic, lying in bed and in no acute distress. HEENT--PERRL, EOMI, mucous membranes and oropharynx normal Neck--supple. No JVD. No bruits. Thyroid normal, trachea midline, no adenopathy. Heart--normal S1 and S2. No murmurs, rubs or gallops. Lungs--coarse breath sounds at the bases bilaterally. No respiratory distress, no accessory muscle use. Abdomen--normal bowel sounds and soft. Nontender. Nondistended, no hernias or masses, no organomegaly. Extremities--No edema. Dermatologic--normal skin turgor, normal color, no abnormal lymph nodes, no rash. Neurologic--cranial nerves II through XII grossly intact. Rheumatologic--normal range of motion. Psychiatric--normal affect. Results & Data Results & Data Vital Signs (Past 12 Hours) Vital Signs Temp Pulse Pulse Resp BP BP Pulse Ox 09/02/23 19:40 70 22 93 09/02/23 19:32 74 20 166/113 H 94 09/02/23 19:18 76 09/02/23 19:07 67 30 H 189/88 H 94 09/02/23 19:07 77 L 09/02/23 16:53 36.7 C 72 18 166/96 H 92 O2 Del Method O2 Flow Rate 09/02/23 19:40 Nasal Cannula 3 09/02/23 19:32 Nasal Cannula 3 09/02/23 19:18 09/02/23 19:07 Nasal Cannula 5 09/02/23 19:07 Room Air 09/02/23 16:53 Room Air Laboratory Results Laboratory Results WBC 5.40 K/ul (4.8-10.8) 09/02/23 17:35 RBC 4.83 M/uL (4.70-6.10) 09/02/23 17:35 Hgb 14.7 g/dl (14.0-18.0) 09/02/23 17:35 Hct 44.1 % (42.0-52.0) 09/02/23 17:35 MCV 91.3 fL (80.0-100.0) 09/02/23 17:35 MCH 30.4 pg (25.0-34.0) 09/02/23 17:35 MCHC 33.3 g/dL (32.0-36.0) 09/02/23 17:35 RDW Std Deviation 45.0 fL (36.4-46.3) 09/02/23 17:35 RDW Coeff of Chad 13.3 % (11.5-14.5) 09/02/23 17:35 Plt Count 235 K/uL (130-400) 09/02/23 17:35 MPV 10.1 fL (9.4-12.4) 09/02/23 17:35 Immature Gran % (Auto) 0.4 % 09/02/23 17:35 Neut % (Auto) 45.8 % 09/02/23 17:35 Lymph % (Auto) 20.2 % 09/02/23 17:35 Holmes % (Auto) 15.6 % 09/02/23 17:35 Eos % (Auto) 16.9 % 09/02/23 17:35 Baso % (Auto) 1.1 % 09/02/23 17:35 Neut # (Auto) 2.48 K/uL (1.40-6.50) 09/02/23 17:35 Lymph # (Auto) 1.09 K/uL (1.20-3.40) L 09/02/23 17:35 Holmes # (Auto) 0.84 K/uL (0.11-0.59) H 09/02/23 17:35 Eos # (Auto) 0.91 K/uL (0.00-0.50) H 09/02/23 17:35 Baso # (Auto) 0.06 K/uL (0.00-0.20) 09/02/23 17:35 Immature Gran # (Auto) 0.02 K/uL (0.01-0.20) 09/02/23 17:35 PT 10.3 Seconds (9.0-12.0) 09/02/23 17:35 INR 0.9 (0.9-1.1) 09/02/23 17:35 APTT 25 Seconds (21-31) 09/02/23 17:35 PTT Ratio 0.9 09/02/23 17:35 D-Dimer 1360 ug/L FEU (0-500) H* 09/02/23 17:35 VBG pH 7.38 (7.36-7.41) 09/02/23 19:21 VBG pCO2 51 mmHg (38-50) H 09/02/23 19:21 VBG pO2 23 mmHg 09/02/23 19:21 VBG HCO3 30 mmol/L 09/02/23 19:21 VBG O2 Saturation < 60.0 % 09/02/23 19:21 VBG Base Excess 3.9 mEq/L 09/02/23 19:21 Sodium 139 mmol/L (136-145) 09/02/23 17:35 Potassium 3.8 mmol/L (3.5-5.1) 09/02/23 17:35 Chloride 103 mmol/L (98-107) 09/02/23 17:35 Carbon Dioxide 29 mmol/L (21-32) 09/02/23 17:35 Anion Gap 7 (3-11) 09/02/23 17:35 BUN 18 mg/dl (6-23) 09/02/23 17:35 Creatinine 1.30 mg/dl (0.6-1.4) 09/02/23 17:35 Est Cr Clr Drug Dosing 72.3 ml/min 09/02/23 17:35 Est GFR ( Amer) 69.7 ml/min 09/02/23 17:35 Est GFR (Non-Af Amer) 60.1 ml/min 09/02/23 17:35 BUN/Creatinine Ratio 13.8 (10-20) 09/02/23 17:35 Glucose 90 mg/dl (70-99(Fasting)) 09/02/23 17:35 Calcium 9.4 mg/dl (8.6-10.3) 09/02/23 17:35 Total Bilirubin 0.5 mg/dl (0.2-1.0) 09/02/23 17:35 AST 22 U/L (13-39) 09/02/23 17:35 ALT 18 U/L (7-52) 09/02/23 17:35 Alkaline Phosphatase 122 U/L (34-104) H 09/02/23 17:35 Troponin I High Sens 6.7 pg/ml (0-20) 09/02/23 17:35 Total Protein 6.9 gm/dl (6.0-8.3) 09/02/23 17:35 Albumin 4.2 gm/dl (3.4-5.0) 09/02/23 17:35 Globulin 2.7 gm/dl (2.5-4.0) 09/02/23 17:35 Albumin/Globulin Ratio 1.6 (0.9-2) 09/02/23 17:35 Lipase 8 U/L (11-82) L 09/02/23 17:35 Procalcitonin < 0.02 ng/ml (0-0.5) 09/02/23 17:35 Adenovirus (PCR) Not Detected (NotDetected) 09/02/23 19:22 B. pertussis DNA (PCR) Not Detected (NotDetected) 09/02/23 19:22 B.parapertussis DNA PCR Not Detected (NotDetected) 09/02/23 19:22 C. pneumoniae DNA (PCR) Not Detected (NotDetected) 09/02/23 19:22 Coronavirus OC43 (PCR) Not Detected (NotDetected) 09/02/23 19:22 Coronavirus HKU1 (PCR) Not Detected (NotDetected) 09/02/23 19:22 Coronavirus 229E (PCR) Not Detected (NotDetected) 09/02/23 19:22 SARS-CoV-2 (PCR) Not Detected (NotDetected) 09/02/23 19:22 Coronavirus NL63 (PCR) Not Detected (NotDetected) 09/02/23 19:22 Human Metapneumovir PCR Not Detected (NotDetected) 09/02/23 19:22 Influenza Type A (PCR) Not Detected (NotDetected) 09/02/23 19:22 Influenza Type B (PCR) Not Detected (NotDetected) 09/02/23 19:22 M. pneumoniae (PCR) Not Detected (NotDetected) 09/02/23 19:22 Parainfluenza 1 (PCR) Not Detected (NotDetected) 09/02/23 19:22 Parainfluenza 2 (PCR) Not Detected (NotDetected) 09/02/23 19:22 Parainfluenza 3 (PCR) Not Detected (NotDetected) 09/02/23 19:22 Parainfluenza 4 (PCR) Not Detected (NotDetected) 09/02/23 19:22 RSV (PCR) Not Detected (NotDetected) 09/02/23 19:22 Entero/Rhino (PCR) Not Detected (NotDetected) 09/02/23 19:22 Impressions Chest X-Ray 09/02/23 16:55 XR chest 1V portable CLINICAL HISTORY: Chest pain, nonspecific TECHNIQUE: Single frontal radiograph of the chest was obtained. Comparison: Comparison is made to chest radiograph 10/27/[address] chest 10/27/2022 FINDINGS: No lines and tubes are seen. The cardiomediastinal silhouette is normal. Emphysema and bibasilar atelectasis are seen. No evidence of pleural effusion or pneumothorax. IMPRESSION: No acute chest disease. ACT 112: Negative or not required by law. Electronically signed by: Ruddy Nova M.D. 09/02/2023 5:57 PM Chest CTA 09/02/23 19:01 Exam(s): CTA CHEST IV Amt: 116 ml opti 320 EXAM: CT Angiography Chest With Intravenous Contrast CLINICAL HISTORY: Reason for exam: + dimer, SOB. TECHNIQUE: Axial computed tomographic angiography images of the chest with intravenous contrast. CTDI is 11.87 mGy and DLP is 489.66 mGy-cm. Automated exposure control was utilized for the study. A dose lowering technique was utilized adhering to the principles of ALARA. MIP reconstructed images were created and reviewed. COMPARISON: No relevant prior studies available. FINDINGS: Pulmonary arteries: Unremarkable. No acute pulmonary embolism. Aorta: No acute findings. No thoracic aortic aneurysm. Lungs: Dependent airspace consolidations, consistent with multilobar pneumonia. Correlate for aspiration. Severe centrilobular emphysema, preferentially along the upper lobes. Pleural space: Unremarkable. No significant effusion. No pneumothorax. Heart: Unremarkable. No cardiomegaly. No significant pericardial effusion. No evidence of RV dysfunction. Bones/joints: No acute fracture. No dislocation. Soft tissues: Unremarkable. Lymph nodes: Unremarkable. No enlarged lymph nodes. IMPRESSION: 1. No acute pulmonary embolism. 2. Dependent airspace consolidations, consistent with multilobar pneumonia. Correlate for aspiration. 3. Severe centrilobular emphysema, preferentially along the upper lobes. Electronically signed by: Deepak Bennett MD 09/02/23 21:45 PM Code Status & VTE Plan Code Status Full code VTE Prophylaxis Plan VTE Prophylaxis will be ordered: Yes PG Care Time/CCT Total # of Minutes Spent Total Time Spent with Patient: Total time spent is greater than 50% in coordination of care (as documented) at patient's floor/unit and/or counseling patient: Coding Level of Care Code 58090 INT INP/OBS CARE 3/75MIN Diagnoses Pneumonia of both lower lobes J18.9 Acute exacerbation of chronic obstructive pulmonary disease J44.1 History of nicotine dependence Z87.891 Mediastinal lymphadenopathy R59.0 Nocturnal hypoxia G47.34 COPD, group D, by GOLD 2017 classification J44.9 Contact dermatitis, unspecified contact dermatitis type, unspecified trigger L25.9 Contact dermatitis type: unspecified Contact dermatitis trigger: unspecified trigger Hypertension I10 (7) Contact dermatitis Contact dermatitis type: unspecified Contact dermatitis trigger: unspecified trigger Qualified Code(s): L25.9 - Unspecified contact dermatitis, unspecified cause
[2023-09-02] MEDS: CEFEPIME 2,000 MG/20 ML VIAL IV STA (22:46)
[2023-09-02] MEDS: MAGNESIUM SULFATE / D5W 1 GM/100 ML BAG IV STA (22:46)
[2023-09-02] MEDS ORDERED: methylPREDNISolone 40 MG in SYRINGE 0 ML IV SCH (23:15)
[2023-09-02] MEDS: guaiFENesin 600 MG TABCR PO STA (23:50)
[2023-09-02] MEDS: ACETAMINOPHEN 325 MG TAB PO PRN (23:50)
[2023-09-02] MEDS: AZITHROMYCIN 500 MG in DEXTROSE 5% 250 ML IV ONE (23:50)
[2023-09-03] MEDS: amLODIPine BESYLATE 5 MG TAB PO ONE (00:02)
[2023-09-03] MEDS: dilTIAZem HCL 30 MG TAB PO ONE (00:12)
[2023-09-03 04:45] LABS: Basophils # (auto) 0.02 K/uL (0.00-0.20); Basophils % (auto) 0.6 %; Eosinophils # (auto) 0.02 K/uL (0.00-0.50); Eosinophils % (auto) 0.6 %; Hematocrit (blood only) 38.5 % (42.0-52.0); Hemoglobin 13.1 g/dl (14.0-18.0); Immature Granulocytes # (auto) 0.02 K/uL (0.01-0.20); Immature Granulocytes % (auto) 0.6 %; Lymphocytes # (auto) 0.54 K/uL (1.20-3.40); Lymphocytes % (auto) 16.6 %; Mean Corpuscular Hemoglobin 30.8 pg (25.0-34.0); Mean Corpuscular Volume 90.4 fL (80.0-100.0); Mean Platelet Volume 10.2 fL (9.4-12.4); Monocytes # (auto) 0.08 K/uL (0.11-0.59); Monocytes % (auto) 2.5 %; Neutrophils # (auto) 2.58 K/uL (1.40-6.50); Neutrophils % (auto) 79.1 %; Platelet Count 207 K/uL (130-400); RDW Coefficient of Variation 13.2 % (11.5-14.5); RDW Standard Deviation 43.3 fL (36.4-46.3); Red Blood Count 4.26 M/uL (4.70-6.10); White Blood Count 3.26 K/ul (4.8-10.8)
[2023-09-03 05:05] LABS: Albumin Level 3.5 gm/dl (3.4-5.0); BUN Creatinine Ratio 18.3 (10-20); Est GFR (African American) 104.5 ml/min; Est GFR (Non-African American) 90.2 ml/min; Phosphorus 3.2 mg/dl (2.5-4.9); Potassium 3.9 mmol/L (3.5-5.1)
[2023-09-03] MEDS: CEFEPIME 2,000 MG/20 ML VIAL ONE (05:46)
[2023-09-03] MEDS: CEFEPIME 2,000 MG in SYRINGE 0 ML IV SCH (05:46)
[2023-09-03] MEDS: ALBUT/IPRATROP 3MG/0.5MG NEB 3 ML VIAL NEB SCH (06:57)
[2023-09-03] MEDS ORDERED: methylPREDNISolone 1000 MG/16 ML IV SCH (08:00)
[2023-09-03] MEDS: METOPROLOL SUCC 25MG EXT REL TAB PO SCH (08:08)
[2023-09-03] MEDS: dilTIAZem HCL 30 MG TAB PO SCH (08:08)
[2023-09-03] MEDS: guaiFENesin 600 MG TABCR PO SCH (08:08)
[2023-09-03] MEDS: ENOXAPARIN INJ 40 MG/0.4 ML SYR SQ SCH (08:08)
[2023-09-03] MEDS: methylPREDNISolone 40 MG in SYRINGE 0 ML IV SCH (08:09)
[2023-09-03] MEDS: RINVOQ~ORDER AWAITING ACTION SCH (08:09)
[2023-09-03] MEDS: FLUTICASONE/VILANTEROL 100/25MCG 14 PUFFS/INHALER INH SCH (08:10)
--- NOTE | 2023-09-03 08:10 | Electrocardiogram Report ---
Test Reason : Blood Pressure : / mmHG Vent. Rate : 070 BPM Atrial Rate : 070 BPM P-R Int : 144 ms QRS Dur : 098 ms QT Int : 430 ms P-R-T Axes : 042 042 041 degrees QTc Int : 464 ms Normal sinus rhythm Normal ECG When compared with ECG of 23-FEB-2021 05:51, No significant change was found Confirmed by Santhosh Resendiz ([id number]) on 09/03/2023 8:09:42 AM Referred By: REFERRED SELF Confirmed By:Santhosh Resendiz
--- NOTE | 2023-09-03 10:25 | Pulmonary Consultation ---
Date of Consultation September 03, 2023 Assessment & Plan (1) Pneumonia of both lower lobes: Nasal MRSA screen pending. If positive, please start vancomycin. Continue with cefepime. Will decrease dose of azithromycin to 250 daily. Can likely transition to oral antibiotics in the next 1 to 2 days. Obtain sputum if able. Consider speech evaluation to evaluate for aspiration pneumonia. Will defer to primary team. Respiratory viral panel negative on admission. Will order IS and Acapella. Pneumonia type: due to unspecified organism Qualified Code(s): J18.9 - Pneumonia, unspecified organism (2) Acute exacerbation of chronic obstructive pulmonary disease: Will transition the patient to 40 mg p.o. prednisone for total of 5 days. Patient was unable to afford his inhalers and Dupixent. Will need to consult case management to ensure that he is able to get his inhalers due to his asthma and COPD overlap. Would recommend that the patient be sent home on a ICS/LABA/LAMA combination inhaler. (3) Hypoxia: Hypoxia likely secondary to bibasilar pneumonia and severe emphysema. Suspect the patient may have chronic oxygen needs. Wean FiO2 to maintain sats of 88 to 92%. Plan Pulmonary to continue to follow. Thank you for the consult. History of Present Illness Reason for Consultation: Hypoxia and bibasilar pneumonia Attending Physician: Jennifer Paulino MD History of Present Illness 58-year-old male with a history of severe COPD and severe emphysematous changes been having increasing shortness of breath over the past 2 to 3 days. He notes chronic shortness of breath which has gotten significantly worse. He also had a bit of a cough and subjective fevers. He was admitted by the hospitalist service due to bibasilar pneumonia and potential COPD exacerbation. Pulmonary was consulted to assist with management of his pulmonary issues. Patient notes that he was previously on supplemental oxygen but discontinued it for unclear reasons. His home meds include Symbicort and Spiriva. He has not been able to afford his inhalers due to insurance related issues.Patient is known to me from the pulmonary clinic and was last seen by me 10/10/2022. Notably his symptoms were stable at that time. He does have an [id number]-[id number] smoking history and quit smoking about 2 years ago. He has an 39-[id number]-rach smoking history. PFTs from October 2021 revealed moderate airflow obstruction with FEV1 of 65% and a 12% increase postbronchodilator. Diffusion capacity is moderately reduced to 50%. Chest CTA 09/02/2023 revealed bibasilar infiltrates and severe bullous emphysema predominantly in the upper lobes. Admission labs are significant for peripheral eosinophilia. Patient previously on Dupixent for contact dermatitis. Current medications include cefepime 2 g 4 times daily, azithromycin 5 mg every 24 and methylprednisone 40 mg every 12. Patient also on Breo 100 mcg 1 puff daily. VBG this admission revealed a mildly elevated pCO2 of 51 with a normal pH. Allergies Allergy/AdvReac Type Severity Reaction Status Date / Time sulfamethoxazole Allergy Severe Unknown Verified 05/20/23 15:54 [From Bactrim] levofloxacin Allergy Hives Verified 05/20/23 15:54 Home Medications Medication Instructions Recorded Confirmed Type metoprolol succinate 25 mg 12.5 mg PO AMHS 01/18/18 09/02/23 History tablet,extended release 24 hr (Toprol XL) albuterol sulfate 90 mcg/actuation 2 puff inhalation Q4 PRN Shortness 07/15/22 09/02/23 Rx aerosol inhaler (ProAir HFA) Of Breath Or Wheezing #6.7 grams budesonide-formoterol HFA 80 2 puff inhalation BID #10.2 grams 12/18/22 09/02/23 Rx mcg-4.5 mcg/actuation aerosol inhaler (Symbicort) tiotropium bromide 2.5 2 puff inhalation DAILY #4 grams 12/18/22 09/02/23 Rx mcg/actuation mist for inhalation (Spiriva Respimat) upadacitinib 15 mg tablet,extended 15 mg PO DAILY #30 tabs 04/10/23 09/02/23 Rx release 24 hr (Rinvoq) Patient History Medical History Vasculitis History of fracture HX OF JAW BROKEN, WIRED, NO CURRENT HARDWARE, DENIES PROBLEMS WITH JAW MOVEMENT Back problem HX OF BACK BROKEN - NO SURGERY, HEALED ON OWN Mini stroke ? HX OF, POSSIBLE HX OF MENTIONED 15 YR AGO TO PT - NO RESIDUAL EFFECTS COPD (chronic obstructive pulmonary disease) Fast heart beat History of COPD Surgical History History of hand surgery 12/06/18 - FOR INFECTION OF RIGHT POINTER FINGER - HEALED History of left heart catheterization 2 YR AGO, PT REPORTS HEART CATH - FAST HEART BEAT...NO FINDINGS ([facility]) Family History Other No pertinent family history Social History Smoking Status: Former smoker Tobacco Type: Cigarettes and Smokeless Tobacco (Dip or Chew) Cigarettes Per Day: 40; Second Hand Exposure: Yes; Do You Dip or Chew Tobacco: Yes; Hx Alcohol Use: No Hx Substance Use: No Preferred Language: Italian Communication Ability: Effective Winter Intern Required: No Beliefs That Will Affect Care: None marital status: Current Living Situation: Spouse 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 Mild tachypnea. Cardiovascular: RRR, no murmur, no edema Skin: No obvious skin lesions. Neurologic: PERRL, EOMI, accommodation nl, no face palsy, no dysarthria Psychiatric: A+Ox3, euthymic affect Results & Data Results & Data Vital Signs (Past 12 Hours) Vital Signs Temp Pulse Pulse Resp BP BP Pulse Ox 09/03/23 08:06 36.5 C 92 H 20 141/82 H 90 09/03/23 08:03 81 09/03/23 06:57 84 16 87 L 09/03/23 04:00 75 16 142/71 H 92 09/03/23 03:00 76 17 115/70 90 09/03/23 02:00 78 17 139/82 91 09/03/23 01:00 80 15 154/86 H 93 09/03/23 00:34 09/03/23 00:31 09/03/23 00:17 68 18 147/74 H 92 09/03/23 00:00 77 16 147/74 H 92 09/02/23 23:19 82 09/02/23 22:50 77 16 159/88 H 92 Pulse Ox O2 Del Method O2 Del Method O2 Flow Rate 09/03/23 08:06 Nasal Cannula 4 09/03/23 08:03 09/03/23 06:57 Nasal Cannula 4 09/03/23 04:00 Nasal Cannula 3 09/03/23 03:00 Nasal Cannula 3 09/03/23 02:00 Nasal Cannula 4 09/03/23 01:00 Nasal Cannula 4 09/03/23 00:34 92 Nasal Cannula 09/03/23 00:31 Nasal Cannula 3 09/03/23 00:17 Nasal Cannula 3 09/03/23 00:00 Nasal Cannula 3 09/02/23 23:19 09/02/23 22:50 Nasal Cannula 4 PG Care Time/CCT Total # of Minutes Spent Total Time Spent with Patient: Total time spent is greater than 50% in coordination of care (as documented) at patient's floor/unit and/or counseling patient: Coding Level of Care Code 55882 INT INP/OBS CARE 375MIN Diagnoses Pneumonia of both lower lobes due to infectious organism J18.9 Pneumonia type: due to unspecified organism Acute exacerbation of chronic obstructive pulmonary disease J44.1 Hypoxia R09.02
--- NOTE | 2023-09-03 16:52 | Hospitalist Progress Note ---
Date of Service September 03, 2023 Assessment & Plan (1) Pneumonia of both lower lobes: (2) Acute exacerbation of chronic obstructive pulmonary disease: (3) History of nicotine dependence: (4) Mediastinal lymphadenopathy: (5) Nocturnal hypoxia: (6) COPD, group D, by GOLD 2017 classification: (7) Contact dermatitis: (8) Hypertension: Plan Multi lobar pneumonia/pneumonia both lower lobes/acute respiratory failure with hypoxia: -From the ED received an hour-long DuoNeb, dexamethasone 10 mg IV, normal saline 1 L, azithromycin 500 mg IV and cefepime 2 g IV -Stable at 92% O2 on 4L NC. Wean as able to maintain O2 sat 88-92% -MRSA nares negative -continue cefepime 2g IV bid -Decreased to 250mg Azithromycin IV qd -Consider transition to PO abx in the next day or two per pulmonology -Switch to PO prednisone 40 mg for total of 5 days -Duonebs every 4 hours while awake and every 2 hours when necessary. -Guaifenesin extended release 1200 mg p.o. 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 Will transition to 120mg cardizem CD qd tomorrow. FEN/GI: Regular Code Status: Full code DVT ppx: Lovenox Dispo: PCU/telemetry Admission and Anticipated Discharge Date Admission Date: September 02, 2023 Supervising Physician Co-Signing Physician Notes Attending Physician Supervision Note: I independently interviewed and examined the patient and verified the mike history and physical, reviewed labs and image studies and agree with findings and care plan noted above. breathing better than admission. still with cough. no fever. comfortable in bed. decreased breath sounds globally. RRR acute hypoxic resp failure d/t copd exacerbation with multifocal pneumonia in immunosuppressed status d/t Rinvoq -continue steroids, abx, nebs. Case management to provide information for medication support. Subjective Pt seen and examined at the bedside this AM with his present. Reports improvement with his breathing since admission, no longer short of breath at rest and during conversations. Still with significant dyspnea any time he gets out of bed. No fevers or chills. No chest pains. He and his express concerns about being able to obtain his inhalers after discharge given recent issues with health insurance. Review of Systems Review of Systems: As per HPI. Physical Exam Physical Exam: General--alert and oriented, well developed, normocephalic and atraumatic, lying in bed and in no acute distress. HEENT--EOMI, mucous membranes and oropharynx normal Neck--supple, No JVD, trachea midline, no adenopathy. Heart--normal S1 and S2. No murmurs, rubs or gallops. Lungs--No respiratory distress, no accessory muscle use. No rhonchi/rales/wheezes. +Diminished breath sounds at the bases bilaterally. Abdomen--normal bowel sounds and soft. Nontender. Nondistended. Extremities--No edema. Dermatologic--+thin erythematous, scaly plaques widespread throughout body Neurologic--cranial nerves II through XII grossly intact. Psychiatric--normal affect. Results & Data Results & Data Vital Signs (Past 12 Hours) Vital Signs Temp Pulse Pulse Resp BP BP Pulse Ox 09/03/23 15:35 36.9 C 71 14 125/73 92 09/03/23 14:36 91 H 14 92 09/03/23 13:53 36.8 C 78 20 138/82 92 09/03/23 10:28 76 14 91 09/03/23 08:06 36.5 C 92 H 20 141/82 H 90 09/03/23 08:03 81 09/03/23 07:00 09/03/23 07:00 09/03/23 06:57 84 16 87 L O2 Del Method O2 Flow Rate 09/03/23 15:35 Nasal Cannula 4 09/03/23 14:36 Nasal Cannula 4 09/03/23 13:53 Nasal Cannula 4 09/03/23 10:28 Nasal Cannula 4 09/03/23 08:06 Nasal Cannula 4 09/03/23 08:03 09/03/23 07:00 Nasal Cannula 4 09/03/23 07:00 Nasal Cannula 4 09/03/23 06:57 Nasal Cannula 4 (1) Pneumonia of both lower lobes Pneumonia type: due to unspecified organism Qualified Code(s): J18.9 - Pneumonia, unspecified organism (7) Contact dermatitis Contact dermatitis trigger: unspecified trigger Contact dermatitis type: unspecified Qualified Code(s): L25.9 - Unspecified contact dermatitis, unspecified cause
[2023-09-03] MEDS ORDERED: AZITHROMYCIN 500 MG in DEXTROSE 5% 250 ML IV SCH (22:00)
[2023-09-03] MEDS: AZITHROMYCIN 250 MG in DEXTROSE 5% 250 ML IV SCH (22:17)
[2023-09-04 07:39] LABS: Basophils # (auto) 0.03 K/uL (0.00-0.20); Basophils % (auto) 0.4 %; Eosinophils # (auto) 0.01 K/uL (0.00-0.50); Eosinophils % (auto) 0.1 %; Hematocrit (blood only) 37.8 % (42.0-52.0); Hemoglobin 12.9 g/dl (14.0-18.0); Immature Granulocytes # (auto) 0.04 K/uL (0.01-0.20); Immature Granulocytes % (auto) 0.5 %; Lymphocytes # (auto) 1.49 K/uL (1.20-3.40); Lymphocytes % (auto) 19.3 %; Mean Corpuscular Hemoglobin 30.6 pg (25.0-34.0); Mean Corpuscular Hgb Conc 34.1 g/dL (32.0-36.0); Mean Corpuscular Volume 89.6 fL (80.0-100.0); Monocytes # (auto) 0.89 K/uL (0.11-0.59); Monocytes % (auto) 11.5 %; Neutrophils # (auto) 5.26 K/uL (1.40-6.50); Neutrophils % (auto) 68.2 %; Platelet Count 205 K/uL (130-400); RDW Coefficient of Variation 13.3 % (11.5-14.5); RDW Standard Deviation 43.2 fL (36.4-46.3); Red Blood Count 4.22 M/uL (4.70-6.10); White Blood Count 7.72 K/ul (4.8-10.8)
[2023-09-04 08:01] LABS: Albumin Level 3.4 gm/dl (3.4-5.0); Calcium 8.4 mg/dl (8.6-10.3); Creatinine Clr Calc Pharmacy 102.9 ml/min; Est GFR (African American) 110.3 ml/min; Est GFR (Non-African American) 95.1 ml/min; Phosphorus 3.1 mg/dl (2.5-4.9); Potassium 3.9 mmol/L (3.5-5.1)
[2023-09-04] MEDS: dilTIAZem HCL 120 MG CAPCR PO SCH (09:00)
[2023-09-04] MEDS: predniSONE 20 MG TAB PO SCH (09:02)
[2023-09-04] MEDS: RINVOQ 15 MG PO SCH (09:02)
--- NOTE | 2023-09-04 11:47 | Pulmonology Progress Note ---
Date of Service September 04, 2023 Assessment & Plan (1) Pneumonia of both lower lobes: Plan: Nasal MRSA screen negative. Continue with cefepime. Continue azithromycin 250 for additional 3 days. Can likely transition to oral antibiotics in the next 1 to 2 days. Obtain sputum if able. Speech therapy to perform fluoroscopic swallow study tomorrow. Respiratory viral panel negative on admission. Strongly encourage strict compliance with incentive spirometer and flutter valve to help clear airways and improve inspiratory capacity. Pneumonia type: due to unspecified organism Qualified Code(s): J18.9 - Pneumonia, unspecified organism (2) Acute exacerbation of chronic obstructive pulmonary disease: Plan: Complete course of 40 mg p.o. prednisone for total of 5 days. Patient was unable to afford his inhalers and Dupixent. Will need to consult case management to ensure that he is able to get his inhalers due to his asthma and COPD overlap. Would recommend that the patient be sent home on a ICS/LABA/LAMA combination inhaler. (3) Hypoxia: Plan: Hypoxia likely secondary to bibasilar pneumonia and severe emphysema. Suspect the patient may have chronic oxygen needs. Wean FiO2 to maintain sats of 88 to 92%. Maintain euvolemia. Consider follow-up echocardiogram given history of "low normal LV function" per cardiology note from 01/15/2023. Plan No further recs at this time. Please call with questions. Thank you for the consult. Admission and Anticipated Discharge Date Admission Date: September 02, 2023 Subjective Patient notes he has not been using his incentive spirometer as it has been causing a headache. Using flutter valve very seldom. Notes he has been coughing up more sputum. Shortness of breath remains essentially the same. Oxygen requirements remain the same as yesterday. Review of Systems Review of Systems: All systems reviewed & are unremarkable except as noted in HPI & below Physical Exam 2 Constitutional: WD/WN, vitals as above Eyes: PERRL, conjunctivae normal, anicteric sclerae Neck: trachea midline, no thyromegaly Respiratory: Diminished lung sounds bibasilar. Mild tachypnea. Cardiovascular: RRR, no murmur, no edema Skin: No obvious skin lesions. Neurologic: PERRL, EOMI, accommodation nl, no face palsy, no dysarthria Psychiatric: A+Ox3, euthymic affect Results & Data Results & Data Vital Signs (Past 12 Hours) Vital Signs Temp Pulse Resp BP Pulse Ox O2 Del Method O2 Flow Rate 09/04/23 11:07 68 20 90 Nasal Cannula 4 09/04/23 07:46 36.7 C 74 18 132/72 90 Nasal Cannula 4 09/04/23 06:53 85 18 91 Nasal Cannula 4 09/04/23 04:01 36.7 C 74 18 138/67 91 Nasal Cannula 4 PG Care Time/CCT Total # of Minutes Spent Total Time Spent with Patient: Total time spent is greater than 50% in coordination of care (as documented) at patient's floor/unit and/or counseling patient: Coding Level of Care Code 37299 SUB INP/OBS CARE 05/01MIN Diagnoses Pneumonia of both lower lobes due to infectious organism J18.9 Pneumonia type: due to unspecified organism Acute exacerbation of chronic obstructive pulmonary disease J44.1 Hypoxia R09.02
--- NOTE | 2023-09-04 12:09 | Hospitalist Progress Note ---
Date of Service September 04, 2023 Assessment & Plan (1) Pneumonia of both lower lobes: (2) Acute exacerbation of chronic obstructive pulmonary disease: (3) History of nicotine dependence: (4) Mediastinal lymphadenopathy: (5) Nocturnal hypoxia: (6) COPD, group D, by GOLD 2017 classification: (7) Contact dermatitis: (8) Hypertension: Plan Multi lobar pneumonia/pneumonia both lower lobes/acute respiratory failure with hypoxia: -Stable at 90% O2 on 4L NC. Wean as able to maintain O2 sat 88-92% -MRSA nares negative. Respiratory viral panel negative. -Blood cx negative at 24hrs. Awaiting sputum collection. -Continue cefepime 2g IV bid -Continue 250mg Azithromycin IV qd -Consider transition to PO abx in the next day or two per pulmonology -Continue PO prednisone 40 mg for total of 5 days -Duonebs q4 hours while awake and q2 hours prn. -Guaifenesin extended release 1200 mg p.o. 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 -He reports his symptoms improved in 2 days after starting Rinvok, with failure of multiple medications previously -Recommend restart Rinvoq outpt Hypertension: -Continue metoprolol succinate 12.5 mg -Transition to 120mg cardizem CD qd today FEN/GI: Regular Code Status: Full code DVT ppx: Lovenox Dispo: PCU/telemetry Admission and Anticipated Discharge Date Admission Date: September 02, 2023 Supervising Physician Co-Signing Physician Notes Attending Physician Supervision Note: I independently interviewed and examined the patient and verified the mike history and physical, reviewed labs and image studies and agree with findings and care plan noted above. cough +. breathing better. no fever. comfortable in bed. better air entry across lung olivera. RRR acute hypoxic resp failure d/t copd exacerbation with multifocal pneumonia in immunosuppressed status d/t Rinvoq -Resp panel and MRSA swab neg - abx - cefepime, azithromycin for 3 more days - transition to oral in 1-2 days. sputum cx, nebs. continue prednisone 40mgs for 5 days, -speech therapy consulted - VFS in am to assess for aspiration. -incentive spirometer. -Home on ICS/LABA/LAMA combination inhaler - has h/o asthma/copd overlap. -Pul suspect likely chronic O2 need - will assess on discharge. -consider f/u echo for low normal LV function - assess in am. Case management to provide information for medication support. Subjective Pt seen and examined at the bedside this AM. Had a bout of coughing around 4am that lasted an hour, producing copious sputum. Feels he has been more SOB since then. Denies fevers/chills/chest pains. Review of Systems Review of Systems: As per HPI. Physical Exam Physical Exam: General--alert and oriented, well developed, normocephalic and atraumatic, lying in bed and in no acute distress. HEENT--EOMI, mucous membranes and oropharynx normal Neck--supple, No JVD, trachea midline, no adenopathy. Heart--normal S1 and S2. No murmurs, rubs or gallops. Lungs--No respiratory distress, no accessory muscle use. No rhonchi/rales/wheezes. +Mildly diminished breath sounds at the bases bilaterally, improved from yesterday. Abdomen--normal bowel sounds and soft. Nontender. Nondistended. Extremities--No edema. Dermatologic--+thin erythematous, scaly plaques widespread throughout body Neurologic--cranial nerves II through XII grossly intact. Psychiatric--normal affect. Results & Data Results & Data Vital Signs (Past 12 Hours) Vital Signs Temp Pulse Resp BP Pulse Ox O2 Del Method O2 Flow Rate 09/04/23 11:07 68 20 90 Nasal Cannula 4 09/04/23 07:46 36.7 C 74 18 132/72 90 Nasal Cannula 4 09/04/23 06:53 85 18 91 Nasal Cannula 4 09/04/23 04:01 36.7 C 74 18 138/67 91 Nasal Cannula 4 (1) Pneumonia of both lower lobes Pneumonia type: due to unspecified organism Qualified Code(s): J18.9 - Pneumonia, unspecified organism (7) Contact dermatitis Contact dermatitis trigger: unspecified trigger Contact dermatitis type: unspecified Qualified Code(s): L25.9 - Unspecified contact dermatitis, unspec ified cause
[2023-09-05 07:17] LABS: Basophils # (auto) 0.03 K/uL (0.00-0.20); Basophils % (auto) 0.4 %; Eosinophils # (auto) 0.03 K/uL (0.00-0.50); Eosinophils % (auto) 0.4 %; Hematocrit (blood only) 40.3 % (42.0-52.0); Hemoglobin 13.4 g/dl (14.0-18.0); Immature Granulocytes # (auto) 0.04 K/uL (0.01-0.20); Immature Granulocytes % (auto) 0.5 %; Lymphocytes # (auto) 2.03 K/uL (1.20-3.40); Lymphocytes % (auto) 23.7 %; Mean Corpuscular Hemoglobin 30.5 pg (25.0-34.0); Mean Corpuscular Hgb Conc 33.3 g/dL (32.0-36.0); Mean Corpuscular Volume 91.8 fL (80.0-100.0); Mean Platelet Volume 10.3 fL (9.4-12.4); Monocytes # (auto) 0.77 K/uL (0.11-0.59); Neutrophils # (auto) 5.67 K/uL (1.40-6.50); Platelet Count 240 K/uL (130-400); RDW Coefficient of Variation 13.2 % (11.5-14.5); RDW Standard Deviation 45.1 fL (36.4-46.3); Red Blood Count 4.39 M/uL (4.70-6.10); White Blood Count 8.57 K/ul (4.8-10.8)
[2023-09-05 07:49] LABS: Albumin Level 3.5 gm/dl (3.4-5.0); BUN Creatinine Ratio 20.7 (10-20); Calcium 8.5 mg/dl (8.6-10.3); Creatinine Clr Calc Pharmacy 102.5 ml/min; Est GFR (African American) 110.3 ml/min; Est GFR (Non-African American) 95.1 ml/min; Potassium 4.6 mmol/L (3.5-5.1)
--- NOTE | 2023-09-05 13:42 | Hospitalist Progress Note ---
Date of Service September 05, 2023 Assessment & Plan (1) Pneumonia of both lower lobes: (2) Acute exacerbation of chronic obstructive pulmonary disease: (3) History of nicotine dependence: (4) Mediastinal lymphadenopathy: (5) Nocturnal hypoxia: (6) COPD, group D, by GOLD 2017 classification: (7) Contact dermatitis: (8) Hypertension: Plan Multi lobar pneumonia/pneumonia both lower lobes/acute respiratory failure with hypoxia: -Stable at 90% O2 on 4L NC. Wean as able to maintain O2 sat 88-92% -MRSA nares negative. Respiratory viral panel negative. -Blood cx negative at 48hrs. Sputum cx pending. -Continue cefepime 2g IV bid -Continue 250mg Azithromycin IV qd -Consider transition to PO abx after sputum cx resulted. -Continue PO prednisone 40 mg for total of 5 days -Duonebs q4 hours while awake and q2 hours prn. -Guaifenesin extended release 1200 mg p.o. 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 extremity -He reports his symptoms improved in 2 days after starting Rinvok, with failure of multiple medications previously -Recommend restart Rinvoq outpt Hypertension: -Continue metoprolol succinate 12.5 mg -Continue 120mg cardizem CD qd FEN/GI: Regular Code Status: Full code DVT ppx: Lovenox Dispo: PCU/telemetry Admission and Anticipated Discharge Date Admission Date: September 02, 2023 Supervising Physician Co-Signing Physician Notes Attending Physician Supervision Note: I independently interviewed and examined the patient and verified the mike history and physical, reviewed labs and image studies and agree with findings and care plan noted above. felt much better today. no fever. comfortable in bed. better air entry across lung olivera. RRR acute hypoxic resp failure d/t copd exacerbation with multifocal pneumonia in immunosuppressed status d/t Rinvoq -Resp panel and MRSA swab neg - abx - cefepime, azithromycin - transition to oral in am after sputum cx resulted. nebs. continue prednisone 40mgs for 5 days, -speech therapy consulted - VFS on friday to assess for aspiration. -incentive spirometer. -Home on ICS/LABA/LAMA combination inhaler - has h/o asthma/copd overlap. -Pul suspect likely chronic O2 need - will assess on discharge. -echo normal. Case management to provide information for medication support. Subjective Pt seen and examined at the bedside this AM. Feeling less SOB today. He has been up out of bed several times since getting longer O2 tube which he tolerated well. Still have significant coughing, but mostly in the mornings. Denies fevers/chills/chest pains. Review of Systems Review of Systems: As per HPI. Physical Exam Physical Exam: General--alert and oriented, well developed, normocephalic and atraumatic, lying in bed and in no acute distress. HEENT--EOMI, mucous membranes and oropharynx normal Neck--supple, No JVD, trachea midline, no adenopathy. Heart--normal S1 and S2. No murmurs, rubs or gallops. Lungs--No respiratory distress, no accessory muscle use. No rales/wheezes. +Scattered rhonchi, +Mildly diminished breath sounds at the bases bilaterally, improved from yesterday. Abdomen--normal bowel sounds and soft. Nontender. Nondistended. Extremities--No edema. Dermatologic--+thin erythematous, scaly plaques widespread throughout body Neurologic--cranial nerves II through XII grossly intact. Psychiatric--normal affect. Results & Data Results & Data Vital Signs (Past 12 Hours) Vital Signs Temp Pulse Pulse Resp BP Pulse Ox O2 Del Method 09/05/23 11:31 68 18 95 Nasal Cannula 09/05/23 10:51 36.7 C 67 18 134/71 91 Nasal Cannula 09/05/23 09:00 Nasal Cannula 09/05/23 07:45 63 09/05/23 07:27 77 17 88 L Nasal Cannula 09/05/23 07:03 36.6 C 65 19 162/72 H 92 Nasal Cannula 09/05/23 03:14 36.6 C 68 19 165/81 H 90 Nasal Cannula O2 Flow Rate 09/05/23 11:31 4 09/05/23 10:51 09/05/23 09:00 4 09/05/23 07:45 09/05/23 07:27 6 09/05/23 07:03 4 09/05/23 03:14 4 (1) Pneumonia of both lower lobes Pneumonia type: due to unspecified organism Qualified Code(s): J18.9 - Pneumonia, unspecified organism (7) Contact dermatitis Contact dermatitis trigger: unspecified trigger Contact dermatitis type: unspecified Qualified Code(s): L25.9 - Unspecified contact dermatitis, unspecified cause
[2023-09-06] MEDS: ALBUT/IPRATROP 3MG/0.5MG NEB 3 ML VIAL NEB PRN (08:54)
--- NOTE | 2023-09-06 10:56 | Hospitalist Progress Note ---
Date of Service September 06, 2023 Assessment & Plan (1) Pneumonia of both lower lobes: (2) Acute exacerbation of chronic obstructive pulmonary disease: (3) History of nicotine dependence: (4) Mediastinal lymphadenopathy: (5) Nocturnal hypoxia: (6) COPD, group D, by GOLD 2017 classification: (7) Contact dermatitis: (8) Hypertension: Plan Per pt insurance re-instated after letter provided to medical assistance office. #Multi lobar pneumonia/pneumonia both lower lobes/acute respiratory failure with hypoxia: O2 via NC maintain sat 88-92% MRSA nares negative. Respiratory viral panel negative. cefepime 2g IV bid - txn to oral when sputum results available 250mg Azithromycin IV day 4/5 PO prednisone 40 mg day 4/5 Duonebs q4 hours while awake and q2 hours prn. 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 He reports his symptoms improved in 2 days after starting Rinvok, with failure of multiple medications previously Recommend restart Rinvoq outpt Hypertension: Continue metoprolol succinate 12.5 mg Continue 120mg cardizem CD qd FEN/GI: Regular Code Status: Full code DVT ppx: Lovenox Dispo: PCU/telemetry Admission and Anticipated Discharge Date Admission Date: September 02, 2023 Supervising Physician Co-Signing Physician Notes Attending Physician Supervision Note: I independently interviewed and examined the patient and verified the mike history and physical, reviewed labs and image studies and agree with findings and care plan noted above. wheezing this morning. no worsening shortness of breath. some cough + no fever. comfortable in bed. rhonchi and mild wheezing bilaterally. RRR acute hypoxic resp failure d/t copd exacerbation with multifocal pneumonia in immunosuppressed status d/t Rinvoq -Resp panel and MRSA swab neg. sputum culture neg. received cefepime and zithromax IV -will switch to oral abx - levaquin. nebs. continue prednisone 40mgs for 5 days, -speech therapy consulted - VFS on friday to assess for aspiration. -incentive spirometer. -Home on ICS/LABA/LAMA combination inhaler - has h/o asthma/copd overlap. -Pul suspect likely chronic O2 need - will assess on discharge. -echo normal. Lovenox Subjective Patient seen and evaluated at bedside this morning. No acute events overnight. Feeling very wheezy this morning, continuing to have a productive cough. Review of Systems Review of Systems: reviewed, per HPI Physical Exam Physical Exam: Constitutional: well-appearing, no acute distress HEENT: NCAT, no conjunctival injection CV: regular rhythm, no murmur appreciated, extremities well-perfused, no LE edema Resp: On 3L O2 NC, diffuse b/l inspiratory and expiratory wheeze Skin: warm, dry, sever dermatitis to the b/l lower extremities Neuro: alert, oriented, no focal neurologic deficit appreciated Results & Data Results & Data Vital Signs (Past 12 Hours) Vital Signs Temp Pulse Pulse Resp BP Pulse Ox Pulse Ox 09/06/23 08:54 68 18 92 09/06/23 08:00 36.7 C 65 19 146/79 H 93 09/06/23 07:28 59 L 09/06/23 02:27 36.7 C 63 18 155/78 H 92 09/06/23 00:00 92 O2 Del Method O2 Del Method O2 Flow Rate O2 Flow Rate 09/06/23 08:54 Nasal Cannula 3.5 09/06/23 08:00 Nasal Cannula 4.0 09/06/23 07:28 09/06/23 02:27 Nasal Cannula 2 09/06/23 00:00 Nasal Cannula 4 Resident Activity Tracking Resident Involvement: Resident Care Provided Care Provided: Adult Hospital Medicine (1) Pneumonia of both lower lobes Pneumonia type: due to unspecified organism Qualified Code(s): J18.9 - Pneumonia, unspecified organism (7) Contact dermatitis Contact dermatitis trigger: unspecified trigger Contact dermatitis type: unspecified Qualified Code(s): L25.9 - Unspecified contact dermatitis, unspecified cause
--- NOTE | 2023-09-06 14:22 | XRay Report ---
XR chest 2V PA/lateral HISTORY: wheeze COMPARISON: Chest CTA 09/02/2023. FINDINGS: No pneumothorax. The heart remains mildly enlarged. Patchy bibasilar densities persist. Emp hysema again noted. No evidence for pulmonary edema. There are cervical spinal fusion hardware. Suspe ct trace bilateral pleural effusions. IMPRESSION: 1. No significant change in the patchy bibasilar densities. This favors a pneumonia and could be due to prior aspiration. 2. Emphysema. ACT 112: Negative or not required by law. Electronically signed by: Broderick Nunez M.D. 09/06/2023 2:21 PM
[2023-09-06] MEDS: levoFLOXacin 750 MG TAB PO SCH (17:06)
[2023-09-06] MEDS: AZITHROMYCIN 250 MG TAB PO SCH (17:23)
[2023-09-06] MEDS: CEFDINIR 300 MG CAP PO SCH (21:12)
--- NOTE | 2023-09-07 14:04 | Hospitalist Progress Note ---
Date of Service September 07, 2023 Assessment & Plan (1) Pneumonia of both lower lobes: (2) Acute exacerbation of chronic obstructive pulmonary disease: (3) History of nicotine dependence: (4) Mediastinal lymphadenopathy: (5) Nocturnal hypoxia: (6) COPD, group D, by GOLD 2017 classification: (7) Contact dermatitis: (8) Hypertension: Plan Per pt insurance re-instated after letter provided to medical assistance office. #Multi lobar pneumonia/pneumonia both lower lobes/acute respiratory failure with hypoxia: O2 via NC maintain sat 88-92% MRSA nares negative. Respiratory viral panel negative. cefepime 2g IV bid - txn to oral when sputum results available 250mg Azithromycin IV day 08/09 PO prednisone 40 mg day 08/09 Duonebs q4 hours while awake and q2 hours prn. 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 He reports his symptoms improved in 2 days after starting Rinvok, with failure of multiple medications previously Recommend restart Rinvoq outpt Hypertension: Continue metoprolol succinate 12.5 mg Continue 120mg cardizem CD qd FEN/GI: Regular Code Status: Full code DVT ppx: Lovenox Dispo: PCU/telemetry Admission and Anticipated Discharge Date Admission Date: September 02, 2023 Supervising Physician Co-Signing Physician Notes Attending Physician Supervision Note: I independently interviewed and examined the patient and verified the mike history and physical, reviewed labs and image studies and agree with findings and care plan noted above. feeling almost back to baseline. acute hypoxic resp failure d/t copd exacerbation with multifocal pneumonia in immunosuppressed status d/t Rinvoq -Resp panel and MRSA swab neg. sputum culture neg. received cefepime and zithromax IV -switched to cefdinir and azithromycin. nebs. continue prednisone 40mgs for 5 days, -speech therapy consulted - VFS on friday to assess for aspiration. -incentive spirometer. -Home on ICS/LABA/LAMA combination inhaler - has h/o asthma/copd overlap. -Pul suspect likely chronic O2 need - will assess on discharge. -echo normal. Lovenox Subjective Patient seen and evaluated at bedside this morning. No acute events overnight. Feeling better today. Able to ambulate and perform basic ADLs in room without supplemental O2. Review of Systems Review of Systems: reviewed, per HPI Physical Exam Physical Exam: Constitutional: well-appearing, no acute distress HEENT: NCAT, no conjunctival injection CV: regular rhythm, no murmur appreciated, extremities well-perfused, no LE edema Resp: On 3L O2 NC, lungs CTAB Skin: warm, dry, severe dermatitis to the b/l lower extremities Neuro: alert, oriented, no focal neurologic deficit appreciated Results & Data Results & Data Vital Signs (Past 12 Hours) Vital Signs Temp Pulse Pulse Resp BP Pulse Ox O2 Del Method 09/07/23 12:10 36.7 C 72 19 138/83 89 L Nasal Cannula 09/07/23 09:43 65 18 90 Nasal Cannula 09/07/23 08:45 Nasal Cannula 09/07/23 08:05 36.9 C 63 19 144/78 H 89 L Nasal Cannula 09/07/23 07:24 57 L 09/07/23 03:44 36.8 C 67 18 132/76 90 Nasal Cannula O2 Flow Rate 09/07/23 12:10 2.0 09/07/23 09:43 2 09/07/23 08:45 2 09/07/23 08:05 2.0 09/07/23 07:24 09/07/23 03:44 2 Resident Activity Tracking Resident Involvement: Resident Care Provided Care Provided: Adult Hospital Medicine (1) Pneumonia of both lower lobes Pneumonia type: due to unspecified organism Qualified Code(s): J18.9 - Pneumonia, unspecified organism (7) Contact dermatitis Contact dermatitis trigger: unspecified trigger Contact dermatitis type: unspecified Qualified Code(s): L25.9 - Unspecified contact dermatitis, unspecified cause
--- NOTE | 2023-09-08 14:20 | Fluoroscopy Report ---
FL video swallow CLINICAL HISTORY: 58 years-old Male with assess for aspiration. Dysphagia with aspiration TECHNIQUE: Video fluoroscopic evaluation of swallowing was performed in the AP and lateral projection s by the speech pathology staff. The patient is fed varying consistencies of barium. FLUOROSCOPY TIME: 1.1 minutes. 2089 images. 5.83 mGy COMPARISON STUDY: CTA chest 09/02/2023 FINDINGS: There is normal hyoid excursion and epiglottic deflection. No significant penetration or as piration identified. Swallowing function is within normal limits. Anterior plate and screw fusion at C4-C6. Mid to distal esophageal dysmotility incidentally noted. IMPRESSION: 1. No aspiration identified. 2. Please see the speech pathologist report for detailed findings and recommendations. ACT 112: Negative or not required by law. Electronically signed by: Tristan Aguayo M.D. 09/08/2023 2:18 PM
--- NOTE | 2023-09-08 17:04 | Hospitalist Progress Note ---
Date of Service September 08, 2023 Assessment & Plan (1) Pneumonia of both lower lobes: (2) Acute exacerbation of chronic obstructive pulmonary disease: (3) History of nicotine dependence: (4) Mediastinal lymphadenopathy: (5) Nocturnal hypoxia: (6) COPD, group D, by GOLD 2017 classification: (7) Contact dermatitis: (8) Hypertension: Plan Per pt insurance re-instated after letter provided to medical assistance office. #Multi lobar pneumonia/pneumonia both lower lobes/acute respiratory failure with hypoxia: Antibiotics, steroids, restarting inhalers has been helpful. Will require home oxygencase management working on this. Seems that most of his decline was related to not being able to get his inhalers, and it sounds like fortunately this has been remedied now. 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 No new complaints today. Still waiting to ensure that everything is in place with insurance. Discussed the highly probable need for home oxygen. Review of Systems Review of Systems: All systems reviewed & are unremarkable except as noted in HPI & below Physical Exam Physical Exam: In general he is awake and alert pleasant no distress. HEENT normocephalic atraumatic mucous membranes moist. Breathing unlabored no accessory muscle use good effort. Skin without rashes pallor or icterus. Neuro without focal deficits. Results & Data Results & Data Vital Signs (Past 12 Hours) Vital Signs Temp Pulse Pulse Pulse Pulse Pulse Pulse 09/08/23 14:44 98.2 F 72 09/08/23 13:49 87 93 H 93 H 76 09/08/23 12:24 58 L 09/08/23 11:21 98.1 F 71 09/08/23 08:01 97.9 F 60 09/08/23 08:00 Resp Resp Resp Resp Resp BP Pulse Ox 09/08/23 14:44 17 122/72 90 09/08/23 13:49 18 22 18 16 09/08/23 12:24 09/08/23 11:21 18 136/75 90 09/08/23 08:01 17 147/80 H 90 09/08/23 08:00 Pulse Ox Pulse Ox Pulse Ox Pulse Ox O2 Del Method O2 Flow Rate O2 Flow Rate 09/08/23 14:44 Nasal Cannula 2 09/08/23 13:49 87 L 89 L 85 L 89 L 2 09/08/23 12:24 09/08/23 11:21 Room Air 09/08/23 08:01 Room Air 09/08/23 08:00 Nasal Cannula 2 O2 Flow Rate 09/08/23 14:44 09/08/23 13:49 3 09/08/23 12:24 09/08/23 11:21 09/08/23 08:01 09/08/23 08:00 PG Care Time/CCT Total # of Minutes Spent Total Time Spent with Patient: Total time spent is greater than 50% in coordination of care (as documented) at patient's floor/unit and/or counseling patient: Coding Level of Care Code 18274 SUB INP/OBS CARE 3/50MIN Diagnoses Pneumonia of both lower lobes due to infectious organism J18.9 Pneumonia type: due to unspecified organism Acute exacerbation of chronic obstructive pulmonary disease J44.1 History of nicotine dependence Z87.891 Mediastinal lymphadenopathy R59.0 Nocturnal hypoxia G47.34 COPD, group D, by GOLD 2017 classification J44.9 Contact dermatitis, unspecified contact dermatitis type, unspecified trigger L25.9 Contact dermatitis type: unspecified Contact dermatitis trigger: unspecified trigger Hypertension I10 (1) Pneumonia of both lower lobes Pneumonia type: due to unspecified organism Qualified Code(s): J18.9 - Pneumonia, unspecified organism (7) Contact dermatitis Contact dermatitis type: unspecified Contact dermatitis trigger: unspecified trigger Qualified Code(s): L25.9 - Unspecified contact dermatitis, unspecified cause
--- NOTE | 2023-09-09 13:06 | Discharge Summary ---
Date of Service September 09, 2023 Admission HPI Per Admitting Provider The patient is a 58-year-old male history including mediastinal lymphadenopathy pulmonary emphysema, nocturnal hypoxia, COPD group D, polycythemia secondary to hypoxia, chronic dermatitis hypertension. The patient has had worsening symptoms since he ran out of his medications due to insurance issues, which she is currently working on. He did get a sample of a inhaler from his family doctor, which he has been using. He presents to the emergency department due to worsening symptoms as noted. Admission Exam Per Admitting Provider The patient is awake, alert and oriented 3, well developed and well nourished, normocephalic and atraumatic, lying in bed and in no acute distress. HEENT--PERRL, EOMI, mucous membranes and oropharynx normal Neck--supple. No JVD. No bruits. Thyroid normal, trachea midline, no adenopathy. Heart--normal S1 and S2. No murmurs, rubs or gallops. Lungs--coarse breath sounds at the bases bilaterally. No respiratory distress, no accessory muscle use. Abdomen--normal bowel sounds and soft. Nontender. Nondistended, no hernias or masses, no organomegaly. Extremities--No edema. Dermatologic--normal skin turgor, normal color, no abnormal lymph nodes, no rash. Neurologic--cranial nerves II through XII grossly intact. Rheumatologic--normal range of motion. Psychiatric--normal affect. Principal Diagnosis PNA, COPD exacerbation Discharge Exam Constitutional: well-appearing, no acute distress HEENT: NCAT, no conjunctival injection CV: regular rhythm, no murmur appreciated, extremities well-perfused, no LE edema Resp: RA at rest, lungs CTAB Skin: warm, dry, severe dermatitis to the b/l lower extremities Neuro: alert, oriented, no focal neurologic deficit appreciated Discharge Data Allergies Allergy/AdvReac Type Severity Reaction Status Date / Time sulfamethoxazole Allergy Severe Unknown Verified 05/20/23 15:54 [From Bactrim] levofloxacin Allergy Hives Verified 05/20/23 15:54 Consultations 09/02/23 21:37 ED Decision to Admit Stat 09/02/23 22:50 Consult Pulmonology Routine Ordered Studies 09/02/23 19:01 CT angio chest PE protocol Stat 09/08/23 13:00 FL video swallow Routine Hospital Course (1) Pneumonia of both lower lobes: (2) Acute exacerbation of chronic obstructive pulmonary disease: (3) History of nicotine dependence: (4) Mediastinal lymphadenopathy: (5) Nocturnal hypoxia: (6) COPD, group D, by GOLD 2017 classification: (7) Contact dermatitis: (8) Hypertension: Plan Per pt insurance re-instated after letter provided to medical assistance office. 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 He reports his symptoms improved in 2 days after starting Rinvoq, with failure of multiple medications previously Recommend restart Rinvoq outpt Has derm f/u 09/15/23 Hypertension: Continue metoprolol succinate 12.5 mg Continue 120mg cardizem CD qd Total Time Total Time Spent Total Time Spent (In Minutes): <30 Discharge Plan Discharge Items Patient Disposition: Home - Self-Care Reason For Visit: ACUTE RESP FAILURE WITH HYPOXIA, MULTILOBAR PNEUMO Discharge Diagnosis: Pneumonia, COPD exacerbationi Activity: As commented below Lifting: Gradually increase as tolerated Non-emergency contact: Primary Care Provider and [employer] Vendor Call non-emergency contact if: you have any medication questions, your symptoms worsen and you have a fever Follow-up/Referrals: Mayuri Mayers MD [Primary Care Provider] - 09/12/23 11:00 am Diet: Heart Healthy Addtl Attending Provider Instructions: You were admitted to the hospital for shortness of breath. You were treated with antibiotics, steroids, and breathing treatments to get your COPD under control and to treat your pneumonia. We have sent prescriptions to your pharmacy for your inhalers. We have increased the dose of your inhalers, use them as instructed. We also sent in a prescription for antibiotics. Take one pill twice daily until you have finished the course of antibiotics. You will also have oxygen at home. You do not need to use this at rest but should use it with activity. If you do not have a pulse oximeter at home you should obtain one, they can be purchased at any pharmacy/[facility]. You should be sure to use oxygen any time your oxygen level drops below 88%. The goal range for your oxygen level is 88%-92%. A discharge summary will be sent to your primary care physician to ensure continuity of care. Please bring this discharge summary with you to your next office appointment so that your provider can review it at that time. Follow-up appointments: Make a follow-up appointment with your PCP within the next week. It is very important that you follow up with them shortly after discharge from the hospital. You have appointment with pulmonology 09/15/23 at 10:15 You have an appointment with dermatology 09/15/23 at 3:45 Keep all your follow-up appointments as already scheduled. If you cannot make an appointment, notify your provider. Medications: Your medication list has been reviewed and reconciled upon discharge to ensure accuracy and continuity of care. An updated list of all your medications is included with your hospital discharge paperwork. Please review this list closely, and make note of any changes. We sent a new medication called Spiriva Respimat 2.5mcg to your pharmacy. Take Spiriva two puff once daily. We sent a new medication called Symbicort 160/4.5 to your pharmacy. Take Symbicort two puffs twice daily. We sent a new medication called cefdinir to your pharmacy. Take cefdinir (300mg) one tablet twice daily until you finish the last dose. We sent a new medication called diltiazem to your pharmacy. Take diltiazem (120mg) one tablet daily. If you have any issues filling these prescriptions, please call [phone] and ask to leave a message for Dr. Kevon Gonzalez. Take your medications as instructed; do not skip a dose of your medicines. Make sure all of your doctors know every medicine you are taking (including xrqy-kez-vxcwdcc medicines, vitamins, and supplements). Call your primary care provider before taking any new medicines (including whrl-tmt-eklggxu medicines, vitamins, and supplements), because some of these may interact with your current medications, or may make your symptoms worse. Tell your primary care provider if you cannot afford your medications. CONTACT YOUR PRIMARY CARE PROVIDER if you experience any of the following: Increasing shortness of breath Fever Difficulty following your treatment plan, or difficulty taking medications CALL 911 OR GO TO THE EMERGENCY DEPARTMENT if you experience any of the following: Sudden, severe abdominal pain or nausea/vomiting Severe chest pain, or chest pain that radiates (moves) to your jaw or arm Sudden, severe shortness of breath or difficulty breathing Thank you for allowing us to participate in your care. Pending Studies at Discharge: No Stand-Alone Forms: My [facility] Medications and DC Order Prescriptions: New diltiazem HCl [Cardizem CD] 120 mg Capsule,Extended Release 24hr 120 mg PO QAM Qty: 30 0RF cefdinir 300 mg Capsule 300 mg PO BID Qty: 13 0RF budesonide-formoterol [Symbicort] 160-4.5 mcg/actuation HFA aerosol inhaler 2 inh inhalation BID Qty: 10.2 0RF Spiriva Respimat 2.5 mcg/actuation mist 2 inh inhalation DAILY Qty: 4 0RF Continued albuterol sulfate [ProAir HFA] 90 mcg/actuation HFA aerosol inhaler 2 puff INHALATION Q4 PRN (Reason: Shortness Of Breath Or Wheezing) Qty: 6.7 5RF Rx Instructions: PER 1ST Rinvoq 15 mg tablet extended release 24 hr 15 mg PO DAILY Qty: 30 2RF metoprolol succinate [Toprol XL] 25 mg tablet extended release 24 hr 12.5 mg PO [facility] Rx Instructions: per 1st Discontinued budesonide-formoterol [Symbicort] 80-4.5 mcg/actuation HFA aerosol inhaler 2 puff inhalation BID Qty: 10.2 11RF Spiriva Respimat 2.5 mcg/actuation mist 2 puff inhalation DAILY Qty: 4 11RF Discharge Orders: Discharge Order (Routine); Ordered 09/09/23 Ordered By: Kevon Mesa/Other Patient Handouts: Shortness Breath [employer], Shortness of Breath Coping Admission Data Admit Date/Time: 09/02/23 22:29 Attending Provider: Ryan Treadwell Admit Provider: Champ Ramirez Primary Care Provider: Mayuri Mayers Other Providers: Champ Ramirez; Angel Ma Other Interventions: Discharge Summary Assessment (RN) Last Done: 09/09/23 11:59 Supervising Physician Co-Signing Physician Notes I personally examined the patient and verified all mike points of history and exam, discussed case, and agree with decision making with Dr Gonzalez feels good enough to get home. Everything appears to be set up. Has outpatient follow-up with pulmonary early next week. acute hypoxic resp failure d/t copd exacerbation with multifocal pneumonia in immunosuppressed status d/t Rinvoq -Resp panel and MRSA swab neg. sputum culture neg. received cefepime and zithromax IV -switched to cefdinir and azithromycin. nebs. home on p.o. antibiotics and steroids -speech therapy consulted - no overt aspiration on video swallow -incentive spirometer. -Home on ICS/LABA/LAMA combination inhaler - has h/o asthma/copd overlap. - home O2 set up -echo normal. close PCP and pulmonary follow-up Resident Activity Tracking Resident Involvement: Resident Care Provided Care Provided: Adult Hospital Medicine
--- NOTE | 2023-09-09 16:35 | Billing Data ---
Date of Service September 09, 2023 Coding Level of Care Code 57801 IN/OBS DISCH 30 MIN/LESS
== END 2023-09-09 12:37 | disposition home or self-care (01) | DRG 193 ==
LOC: ED 16:23 → EDINP 22:29 → SUATTDRO 22:29 → 2S 09-03 15:35 → 3N 09-08 18:29

== ENCOUNTER 2024-05-09 01:45 | Inpatient (IN) ==
[2024-05-09] MEDS: KETOROLAC TROMETHAMINE 15 MG/ML VIAL IV ONE (02:25)
[2024-05-09 02:48] LABS: Alanine Aminotransferase 22 U/L (7-52); Albumin Globulin Ratio 1.7 (0.9-2); Albumin Level 4.2 gm/dl (3.4-5.0); Alkaline Phosphatase 57 U/L (34-104); Anion Gap 7 (3-11); Aspartate Aminotransferase 29 U/L (13-39); BUN Creatinine Ratio 14.1 (10-20); Bilirubin,Total 0.4 mg/dl (0.2-1.0); Blood Urea Nitrogen 12 mg/dl (6-23); Calcium 8.6 mg/dl (8.6-10.3); Carbon Dioxide 25 mmol/L (21-32); Chloride 102 mmol/L (98-107); Globulin 2.5 gm/dl (2.5-4.0); Glucose 126 mg/dl (70-99(Fasting)); Potassium 4.3 mmol/L (3.5-5.1); Sodium 134 mmol/L (136-145); Total Protein 6.7 gm/dl (6.0-8.3)
[2024-05-09] MEDS: fentaNYL citrate PF 100 MCG/2 ML VIAL IV STA (03:08)
--- NOTE | 2024-05-09 03:37 | CT Scan Report ---
EXAM: CT head/brain wo con CLINICAL HISTORY: fall, aloohol, head/neck pain TECHNIQUE: Multiple axial images are obtained from the skull base to the vertex without contrast. CT scan was performed according to ALARA (as low as reasonable achievable). COMPARISON: No FINDINGS: The brain shows normal morphology, attenuation, and volume for age. No evidence of space occupying lesion, hemorrhage, edema, mass effect, midline shift, extra axial collection, or hydrocephalus is noted. Ventricles, sulci, and basal cisterns are symmetric and normal in size and configuration. The bustillo-white matter differentiation is preserved. Visualized paranasal sinuses and mastoid air cells are well aerated. Orbital contents are within normal limits. Bony structures are intact. IMPRESSION: 1. No evidence of acute intracranial abnormality is demonstrated. Electronically signed by Frank Diaz 05-09-2024 03:36 AM
--- NOTE | 2024-05-09 03:45 | CT Scan Report ---
EXAM: CT cervical spine wo con CLINICAL HISTORY: fall, aloohol, head/neck pain TECHNIQUE: Computed tomography of the cervical spine performed without intravenous contrast. Contiguous axial images were obtained from the skull base to T2, with sagittal and coronal reformatted images reconstructed from the axial data. CT scan was performed according to ALARA (as low as reasonable achievable). COMPARISON: 10/20/2023 22:45:01 GROUND CREW CHIEF FINDINGS: There is reversal of cervical lordosis. Cervical vertebral bodies are normal in height and alignment, with no evidence of fracture or subluxation. Lateral masses of C1 are symmetrical, and the dens is intact. Orthopedic fixation plate and screws noted along the anterior margin of C4 till C6 vertebrae with loss of the intervening intervertebral disc spaces and marginal sclerosis. Prevertebral soft tissues are not widened. The remaining suprahyoid and infrahyoid soft tissues in the neck are unremarkable. C2-C3: No disc bulge, mass effect on the cord or neuroforaminal narrowing. C3-C4: No disc bulge, mass effect on the cord or neuroforaminal narrowing. C4-C5: No mass effect on the cord or neuroforaminal narrowing. C5-C6: No mass effect on the cord or neuroforaminal narrowing. C6-C7: No mass effect on the cord or neuroforaminal narrowing. C7-T1: No disc bulge, mass effect on the cord or neuroforaminal narrowing. Thyroid gland appears unremarkable. IMPRESSION: 1. No acute fracture or subluxation in the cervical spine. 2. Reversal of cervical lordosis. 3. Orthopedic fixation plate and screws along the anterior margin of C4 till C6 vertebrae with loss of the intervening intervertebral disc spaces and marginal sclerosis. No new finding compared to previous study dated 10/20/2023. Electronically signed by Frank Diaz 05-09-2024 03:45 AM
--- NOTE | 2024-05-09 03:56 | Emergency Department Note ---
Impression & Plan Multiple rib fractures, Alcohol intoxication ED Provider Note NAME: CORIN WALDROP AGE: 59 SEX: M : 1965 ARRIVES VIA: Ambulance INFORMANT: Patient, ED PROVIDER(S): Panfilo Pelayo MD CHIEF COMPLAINT: Left posterior rib pain HPI: Is a 59-year-old male present for left posterior rib pain. Patient does mention he was drinking alcohol tonight. He has a chronic alcohol drinker. He notes that he fell after he tripped over his dog. He notes he fell onto furniture on his left shoulder/back. Notes pain in this region. No neck pain or obvious head trauma. ROS: See above HPI for pertinent positives & negatives. A total of 10 systems reviewed and were otherwise negative. PAST MEDICAL HISTORY: See Below PAST SURGICAL HISTORY: See Below FAMILY HISTORY: See Below SOCIAL HISTORY: See Below HOME MEDICATIONS: See Below ALLERGIES: See Below VITALS: See Below PHYSICAL EXAMINATION: General: Clearly intoxicated Head: Normocephalic and atraumatic Eyes: Normal inspection, extraocular muscles intact Ear, nose, throat: Normal external exam Neck: In c-collar Respiratory: lungs clear to auscultation bilaterally Cardiovascular: Regular rate/rhythm, no murmur chest/back: Tenderness to palpation of the left posterior rib cage GI: soft, nontender, no guarding or rebound Extremities: nontender, moves all extremities Neuro: The patient awake and alert, appropriately conversive, no focal deficits, symmetric faces Skin: Warm, dry, and intact MEDICAL DECISION MAKING: This is a 59-year-old male present for left posterior rib pain after fall. Patient is intoxicated at this time we will give Toradol, will check alcohol level, will do CT head, C-spine and chest to rule out rib fractures other traumatic injury. -CT head and C-spine are negative -Patient given 50 mg of IV fentanyl for pain control due to no relief after Toradol -Patient refuses to lay flat currently due to pain -Patient's CT of the chest reveals 3 rib fractures -Care discussed with Dr. Decker for admission. He does request surgical consultation. Yonny Ramirez PA-C has been consulted at this time -Bloodwork is reviewed showing no significant electrolyte or creatinine abnormality. Alcohol level 217 Differential diagnosis: Rib fracture, pneumothorax, hemothorax, intracranial hemorrhage, cervical spine fracture, alcohol intoxication Diagnostics interpreted by me: ECG: None Cardiac Monitoring: An order was placed for continuous cardiac monitoring. The monitor shows a rate of 91 with sinus rhythm. 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 HX OF, POSSIBLE HX OF MENTIONED 15 YR AGO TO PT - NO RESIDUAL EFFECTS COPD (chronic obstructive pulmonary disease) Fast heart beat History of COPD Surgical History History of hand surgery 12/06/18 - FOR INFECTION OF RIGHT POINTER FINGER - HEALED History of left heart catheterization 2 YR AGO, PT REPORTS HEART CATH - FAST HEART BEAT...NO FINDINGS ([facility]) Family History Other No pertinent family history Social History Smoking Status: Current some day smoker Tobacco Type: Cigarettes Age Started Using Tobacco: 18; Age Quit Using Tobacco: 50; Cigarettes Per Day: 40; Second Hand Exposure: Yes; Do You Dip or Chew Tobacco: Yes; Hx Alcohol Use: No Hx Substance Use: No Preferred Language: Kazakh Communication Ability: Effective 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 Required: No Beliefs That Will Affect Care: None marital status: Current Living Situation: Spouse current occupational 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 Feels Safe at Home: Yes Assistive Devices: Oxygen - Continuous Allergies Allergies Allergy/AdvReac Type Severity Reaction Status Date / Time sulfamethoxazole Allergy Severe Unknown Verified 04/29/24 12:53 [From Bactrim] levofloxacin Allergy Hives Verified 04/29/24 12:53 Home Meds Home Medications Medication Instructions Recorded Confirmed metoprolol succinate 25 mg 12.5 mg PO AMHS 01/18/18 04/29/24 tablet,extended release 24 hr (Toprol XL) Previous Rx's Medication Instructions Recorded cefdinir 300 mg capsule 300 mg PO BID #13 caps 09/09/23 diltiazem HCl 120 mg 120 mg PO QAM #30 caps 09/09/23 capsule,extended release 24 hr (Cardizem CD) albuterol sulfate 90 mcg/actuation 2 inh inhalation QID PRN shortness 09/15/23 aerosol inhaler of breath or wheezing #8.5 grams albuterol sulfate 90 mcg/actuation 2 puff inhalation Q4 PRN Shortness 09/15/23 aerosol inhaler (ProAir HFA) Of Breath Or Wheezing #6.7 grams cyclobenzaprine 10 mg tablet 10 mg PO HS PRN muscle spasm #10 10/21/23 tabs gabapentin 100 mg capsule 100 mg PO Q8H PRN pain #20 caps 10/21/23 tiotropium bromide 2.5 2 inh inhalation DAILY #4 grams 10/23/23 mcg/actuation mist for inhalation (Spiriva Respimat) upadacitinib 15 mg tablet,extended 15 mg PO DAILY #30 tabs 12/09/23 release 24 hr (Rinvoq) budesonide-formoterol HFA 160 2 inh inhalation BID #10.2 grams 04/12/24 mcg-4.5 mcg/actuation aerosol inhaler (Symbicort) Results & Data (ED) Vital Signs Vital Signs - 24 hr 05/09/24 02:03 05/09/24 02:06 05/09/24 02:15 Temperature Temperature Source Pulse Rate 84 82 86 Pulse Rate [Apical] Pulse Rate from SpO2 Sensor 85 87 Respiratory Rate 14 21 Respiratory Effort / Characteristics Respiratory Depth Blood Pressure 132/86 Blood Pressure [Right Arm] Blood Pressure Mean 101 Blood Pressure Mean [Right Arm] Pulse Oximetry 94 93 Oxygen Delivery Method Room Air Room Air Oxygen Flow Rate Sepsis Recent Fever Within 48 Hours Sepsis New/Unexplained Change in Mental Status Sepsis Action Taken by Nursing 05/09/24 02:16 05/09/24 02:18 05/09/24 02:57 Temperature 36.7 C Temperature Source Oral Pulse Rate 83 88 Pulse Rate [Apical] Pulse Rate from SpO2 Sensor 84 89 Respiratory Rate 14 15 Respiratory Effort / Characteristics Respiratory Depth Blood Pressure 121/81 Blood Pressure [Right Arm] Blood Pressure Mean 94 Blood Pressure Mean [Right Arm] Pulse Oximetry 91 92 Oxygen Delivery Method Room Air Room Air Oxygen Flow Rate Sepsis Recent Fever Within 48 Hours No Sepsis New/Unexplained Change in Mental Status No Sepsis Action Taken by Nursing No Action Required 05/09/24 03:10 05/09/24 03:14 05/09/24 05:33 Temperature 36.7 C Temperature Source Pulse Rate 90 94 H Pulse Rate [Apical] 93 H Pulse Rate from SpO2 Sensor Respiratory Rate 16 20 Respiratory Effort / Characteristics Non-Labored Respiratory Depth Normal Blood Pressure 121/81 Blood Pressure [Right Arm] 108/72 Blood Pressure Mean Blood Pressure Mean [Right Arm] 84 Pulse Oximetry 94 91 89 L Oxygen Delivery Method Room Air Room Air Room Air Oxygen Flow Rate 0 Sepsis Recent Fever Within 48 Hours Sepsis New/Unexplained Change in Mental Status Sepsis Action Taken by Nursing 05/09/24 05:33 05/09/24 06:03 05/09/24 06:20 Temperature Temperature Source Pulse Rate 92 H Pulse Rate [Apical] 98 H 91 H Pulse Rate from SpO2 Sensor Respiratory Rate 20 20 Respiratory Effort / Characteristics Non-Labored Non-Labored Respiratory Depth Normal Normal Blood Pressure Blood Pressure [Right Arm] 108/72 120/68 Blood Pressure Mean Blood Pressure Mean [Right Arm] 84 85 Pulse Oximetry 90 93 Oxygen Delivery Method Nasal Cannula Nasal Cannula Oxygen Flow Rate 2 2 Sepsis Recent Fever Within 48 Hours Sepsis New/Unexplained Change in Mental Status Sepsis Action Taken by Nursing Laboratory Data 05/09/24 02:15 05/09/24 02:16 Lab Results 05/09/24 05/09/24 Range/Units 02:15 02:16 WBC Cancelled RBC Cancelled Hgb Cancelled Hct Cancelled MCV Cancelled MCH Cancelled MCHC Cancelled RDW Std Deviation Cancelled RDW Coeff of Chad Cancelled Plt Count Cancelled MPV Cancelled Immature Gran % (Auto) Cancelled Neut % (Auto) Cancelled Lymph % (Auto) Cancelled Grady % (Auto) Cancelled Eos % (Auto) Cancelled Baso % (Auto) Cancelled Neut # (Auto) Cancelled Lymph # (Auto) Cancelled Grady # (Auto) Cancelled Eos # (Auto) Cancelled Baso # (Auto) Cancelled Immature Gran # (Auto) Cancelled Absolute Nucleated RBC Cancelled Nucleated RBC % (auto) Cancelled Neutrophils % (Manual) Cancelled Band Neutrophils % Cancelled Lymphocytes % (Manual) Cancelled Prolymphocyte % Cancelled Reactive Lymphs % (Man) Cancelled Monocytes % (Manual) Cancelled Eosinophils % (Manual) Cancelled Basophils % (Manual) Cancelled Metamyelocytes % (Man) Cancelled Myelocytes % (Man) Cancelled Promyelocytes % (Man) Cancelled Blast Cells % (Manual) Cancelled Plasma Cell % (Manual) Cancelled Other Cells % Cancelled Nucleated RBC % Cancelled Neutrophils # (Manual) Cancelled Band Neutrophils # Cancelled Total Absolute Neuts Cancelled Lymphocytes # (Manual) Cancelled Prolymphocyte # Cancelled Reactive Lymphs # Cancelled Total Abs Lymphocytes Cancelled Monocytes # (Manual) Cancelled Eosinophils # (Manual) Cancelled Basophils # (Manual) Cancelled Metamyelocytes # (Man) Cancelled Myelocytes # (Manual) Cancelled Promyelocytes # (Man) Cancelled Blast Cells # (Man) Cancelled Plasma Cell # (Manual) Cancelled Other Cells # Cancelled Nucleated RBCs # (Man) Cancelled Hypersegmented Neuts Cancelled Hyposegmented Neuts Cancelled Hypogranular Neuts Cancelled Large Granular Lymphs Cancelled # Lrg Granular Lymphs Cancelled Hairy Cells Cancelled Smudge Cells Cancelled Toxic Granulation Cancelled Toxic Vacuolation Cancelled Dohle Bodies Cancelled Gioavnni Rods Cancelled Platelet Estimate Cancelled Hypogranular Platelets Cancelled Giant Platelets Cancelled Platelet Satelliting Cancelled RBC Morphology Cancelled Polychromasia Cancelled Hypochromasia Cancelled Poikilocytosis Cancelled Basophilic Stippling Cancelled Anisocytosis Cancelled Microcytosis Cancelled Macrocytosis Cancelled Spherocytes Cancelled Pappenheimer Bodies Cancelled Sickle Cells Cancelled Target Cells Cancelled Tear Drop Cells Cancelled Ovalocytes Cancelled Stomatocytes Cancelled Roy-Riverdale Bodies Cancelled Echinocytes Cancelled Acanthocytes (Spur) Cancelled Rouleaux Cancelled RBC Agglutinates Cancelled Schistocytes Cancelled Sezary Cell Cancelled PT 10.3 (9.0-12.0) Seconds INR 0.9 (0.9-1.1) APTT 22 (21-31) Seconds PTT Ratio 0.8 Sodium 134 L (136-145) mmol/L Potassium 4.3 (3.5-5.1) mmol/L Chloride 102 (98-107) mmol/L Carbon Dioxide 25 (21-32) mmol/L Anion Gap 7 (3-11) BUN 12 (6-23) mg/dl Creatinine 0.85 (0.6-1.4) mg/dl Est Cr Clr Drug Dosing Not Reportable eGFR 100.10 BUN/Creatinine Ratio 14.1 (10-20) Glucose 126 H (70-99(Fasting)) mg/dl Calcium 8.6 (8.6-10.3) mg/dl Total Bilirubin 0.4 (0.2-1.0) mg/dl AST 29 (13-39) U/L ALT 22 (7-52) U/L Alkaline Phosphatase 57 (34-104) U/L Total Protein 6.7 (6.0-8.3) gm/dl Albumin 4.2 (3.4-5.0) gm/dl Globulin 2.5 (2.5-4.0) gm/dl Albumin/Globulin Ratio 1.7 (0.9-2) Ethyl Alcohol mg/dL 217.6 H (<10.0) mg/dl Blood Parasites ID Cancelled Administered Medications Discontinued Medications Fentanyl Citrate (Fentanyl Citrate Pf 100 Mcg/2 Ml Vial) 50 mcg IV NOW STA Stop: 05/09/24 02:50 Last Admin: 05/09/24 03:08 Dose: Not Given Documented By: [facility] Ketorolac Tromethamine (Ketorolac Tromethamine 15 Mg/Ml Vial) 15 mg IV NOW ONE Stop: 05/09/24 02:20 Last Admin: 05/09/24 02:25 Dose: 15 mg Documented By: [facility] Imaging Data Radiologist's Impression: Cervical Spine CT 05/09/24 02:16 EXAM: CT cervical spine wo con CLINICAL HISTORY: fall, aloohol, head/neck pain TECHNIQUE: Computed tomography of the cervical spine performed without intravenous contrast. Contiguous axial images were obtained from the skull base to T2, with sagittal and coronal reformatted images reconstructed from the axial data. CT scan was performed according to ALARA (as low as reasonable achievable). 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 Cervical vertebral bodies are normal in height and alignment, with no evidence of fracture or subluxation. Lateral masses of C1 are symmetrical, and the dens is intact. Orthopedic fixation plate and screws noted along the anterior margin of C4 till C6 vertebrae with loss of the intervening intervertebral disc spaces and marginal sclerosis. Prevertebral soft tissues are not widened. The remaining suprahyoid and infrahyoid soft tissues in the neck are unremarkable. C2-C3: No disc bulge, mass effect on the cord or neuroforaminal narrowing. C3-C4: No disc bulge, mass effect on the cord or neuroforaminal narrowing. C4-C5: No mass effect on the cord or neuroforaminal narrowing. C5-C6: No mass effect on the cord or neuroforaminal narrowing. C6-C7: No mass effect on the cord or neuroforaminal narrowing. C7-T1: No disc bulge, mass effect on the cord or neuroforaminal narrowing. Thyroid gland appears unremarkable. IMPRESSION: 1. No acute fracture or subluxation in the cervical spine. 2. Reversal of cervical lordosis. 3. Orthopedic fixation plate and screws along the anterior margin of C4 till C6 vertebrae with loss of the intervening intervertebral disc spaces and marginal sclerosis. No new finding compared to previous study dated 10/20/2023. Electronically signed by Frank Diaz 05-09-2024 03:[address] 05/09/24 02:16 EXAM: CT chest diagnostic wo con CLINICAL HISTORY: fall, alcohol, L shoulder/rib pain TECHNIQUE: Contiguous axial images were obtained from the neck base through the upper abdomen without contrast. In addition, sagittal and coronal reconstructions were performed to potentially increase the sensitivity for the detection of disease. CT scan was performed according to ALARA (as low as reasonable achievable). 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 No pulmonary nodules are seen. Paraseptal and centrilobular emphysema in bilateral upper lobes with a large emphysematous bulla of size 5.7 x 8cm (AP x TR) in the right upper lobe. Ground glass opacity and septal thickening in the basal segments of left lower lobe. The central airways are patent. There are no pleural effusions. No pneumothorax is seen. Evaluation of the mediastinum and marilu is limited due to the lack of intravenous contrast. No axillary or mediastinal adenopathy is identified. Displaced single site fracture of left 5th, 6th and 7th ribs. The thyroid is unremarkable. The heart, aorta, and pulmonary arteries are of normal size and configuration. There are no appreciable coronary artery and aortic atherosclerotic calcifications. No pericardial effusion is identified. Imaged portions of the upper abdomen are unremarkable. No aggressive appearing osseous lesions are identified. IMPRESSION: 1. Displaced single site fracture of left 5th, 6th and 7th ribs with underlying pleural thickening. 2. Paraseptal and centrilobular emphysema in bilateral upper lobes with a large emphysematous bulla in right upper lobe. 3. Ground glass opacity and septal thickening in the basal segments of left lower lobe, likely gravity dependant subsegmental atelectasis. Left sided rib fracture is a new finding compared to study dated 12/15/2023. Electronically signed by Frank Diaz 05-09-2024 04:[address] 05/09/24 02:16 EXAM: CT head/brain wo con CLINICAL HISTORY: fall, aloohol, head/neck pain TECHNIQUE: Multiple axial images are obtained from the skull base to the vertex without contrast. CT scan was performed according to ALARA (as low as reasonable achievable). COMPARISON: No FINDINGS: The brain shows normal morphology, attenuation, and volume for age. No evidence of space occupying lesion, hemorrhage, edema, mass effect, midline shift, extra axial collection, or hydrocephalus is noted. Ventricles, sulci, and basal cisterns are symmetric and normal in size and configuration. The bustillo-white matter differentiation is preserved. Visualized paranasal sinuses and mastoid air cells are well aerated. Orbital contents are within normal limits. Bony structures are intact. IMPRESSION: 1. No evidence of acute intracranial abnormality is demonstrated. Electronically signed by Frank Diaz 05-09-2024 03:36 AM Discharge Plan Visit Data Chief Complaint: Trauma Stated Complaint: Fall, Back Pain, ETOH ED Provider: Panfilo Pelayo Discharge Problem: Multiple rib fractures, Alcohol intoxication Forms Stand Alone Forms: [facility] Prescriptions Prescriptions: No Action albuterol sulfate [ProAir HFA] 90 mcg/actuation HFA aerosol inhaler 2 puff INHALATION Q4 PRN (Reason: Shortness Of Breath Or Wheezing) Qty: 6.7 5RF Rx Instructions: PER 1ST Spiriva Respimat 2.5 mcg/actuation mist 2 inh inhalation DAILY Qty: 4 5RF Rinvoq 15 mg tablet extended release 24 hr 15 mg PO DAILY Qty: 30 5RF budesonide-formoterol [Symbicort] 160-4.5 mcg/actuation HFA aerosol inhaler 2 inh inhalation BID Qty: 10.2 5RF albuterol sulfate 90 mcg/actuation HFA aerosol inhaler 2 inh inhalation QID PRN (Reason: shortness of breath or wheezing) Qty: 8.5 3RF metoprolol succinate [Toprol XL] 25 mg tablet extended release 24 hr 12.5 mg PO AMHS Rx Instructions: per 1st diltiazem HCl [Cardizem CD] 120 mg Capsule,Extended Release 24hr 120 mg PO QAM Qty: 30 0RF cefdinir 300 mg Capsule 300 mg PO BID Qty: 13 0RF cyclobenzaprine 10 mg tablet 10 mg PO HS PRN (Reason: muscle spasm) Qty: 10 0RF gabapentin 100 mg capsule 100 mg PO Q8H PRN (Reason: pain) Qty: 20 0RF Referrals Referrals: Mayuri Mayers MD [Primary Care Provider] -
--- NOTE | 2024-05-09 04:44 | CT Scan Report ---
EXAM: CT chest diagnostic wo con CLINICAL HISTORY: fall, alcohol, L shoulder/rib pain TECHNIQUE: Contiguous axial images were obtained from the neck base through the upper abdomen without contrast. In addition, sagittal and coronal reconstructions were performed to potentially increase the sensitivity for the detection of disease. CT scan was performed according to ALARA (as low as reasonable achievable). 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 No pulmonary nodules are seen. Paraseptal and centrilobular emphysema in bilateral upper lobes with a large emphysematous bulla of size 5.7 x 8cm (AP x TR) in the right upper lobe. Ground glass opacity and septal thickening in the basal segments of left lower lobe. The central airways are patent. There are no pleural effusions. No pneumothorax is seen. Evaluation of the mediastinum and marilu is limited due to the lack of intravenous contrast. No axillary or mediastinal adenopathy is identified. Displaced single site fracture of left 5th, 6th and 7th ribs. The thyroid is unremarkable. The heart, aorta, and pulmonary arteries are of normal size and configuration. There are no appreciable coronary artery and aortic atherosclerotic calcifications. No pericardial effusion is identified. Imaged portions of the upper abdomen are unremarkable. No aggressive appearing osseous lesions are identified. IMPRESSION: 1. Displaced single site fracture of left 5th, 6th and 7th ribs with underlying pleural thickening. 2. Paraseptal and centrilobular emphysema in bilateral upper lobes with a large emphysematous bulla in right upper lobe. 3. Ground glass opacity and septal thickening in the basal segments of left lower lobe, likely gravity dependant subsegmental atelectasis. Left sided rib fracture is a new finding compared to study dated 12/15/2023. Electronically signed by Frank Diaz 05-09-2024 04:44 AM
--- NOTE | 2024-05-09 05:46 | History & Physical Report ---
Date of Service May 09, 2024 Assessment & Plan (1) Multiple rib fractures: (2) Alcohol intoxication: (3) Hyponatremia: (4) COPD (chronic obstructive pulmonary disease): Plan Patient is a 59-year-old male with past medical history of COPD, hypertension, dermatitis. Patient had 5+ alcoholic drinks and tripped over his dog resulting in 3 consecutive left rib fractures, 1 displaced. Patient is being admitted to PCU due to rib fractures and pain management. #multiple rib fractures S/p fall from standing Chest CT showed displaced single fracture of left fifth rib, Fractures left sixth and seventh ribs, Underlying pleural thickening, Along with emphysema and atelectasis Cervical spine CT negative for acute changes, head CT negative for acute changes Received fentanyl 50 mcg plus Toradol 15 Mg in ED Transition to - Tylenol prn, Toradol prn, and Oxycodone 5/10 (for pain not relieved by #1 and 2) lidoderm patch splint with pillow or blanket to left chest as needed when coughing, moving, or with pain Mucinex, Tessalon Perles, incentive spirometry oxygen as needed O2 goal greater than 92% PT/OT evals consult general surgery Consult pulmonology Will need repeat CXR prior to discharge fall and aspiration precautions #Alcohol intoxication/ alcohol abuse Long history of alcohol use for many years Patient reports 6-10 beers per week Denies withdrawal symptoms on admission EtOH level 217.6 on admission Alcohol withdrawal protocol with Ativan as needed IV thiamine and folate daily B12, folate, B1 levels ordered Seizure precautions #Hyponatremia NA 134 on admission Suspect 2/2 hypotonic/dehydration with alcohol use Will order 500 mL NSS at 80 mL/h Trend BMP; if persistently low consider serum osmole, urine osmole, urine NA #COPD History of COPD requiring oxygenation Uses 2L NC at bedtime and 2L during the day as needed (roughly 2 times per week) Continue oxygen at bedtime Oxygen as needed with rib fractures as above Continue home inhalers Chronic stable diagnoses: Dermatitison Rinvoq at home; held HTNpatient on metoprolol at home - Continue, denies using Cardizem as on recent med list (re-eval with patient when no longer intoxicated) nicotine useuses snuff at home; denies need for nicotine patch on admission VTE ppx: SCDs Diet: regular Dispo: PCU Admission and Anticipated Discharge Date Admission Date: 05/09/24 History of Present Illness Chief Complaint: trauma Primary Care Provider: Mayuri Mayers MD Patient is a 59-year-old male with past medical history of COPD, hypertension, dermatitis. Patient had 5+ alcoholic drinks and tripped over his dog resulting in 3 consecutive left rib fractures, 1 displaced. patient is being admitted to PCU due to rib fractures and pain management. . Patient seen at bedside. Patient is mildly confused as alcohol intoxication. He had roughly 5 drinks and tripped over his dog falling on his left side. He stated he had left shoulder and rib pain; denies pain elsewhere. He denies head strike is not on any blood thinners. Feels it is difficult to take a deep breath. He does have a history of COPD and uses 2L O2 via nasal cannula at bedtime and 2 L as needed which he uses roughly 2 times a week. Patient denies headache, dizziness, lightheadedness, cough, abdominal pain, nausea, vomiting, diarrhea, numbness, tingling. He does use snuff but denies need for nicotine patch at this time. He does have a history of alcohol use for several years; patient stated he has 6-10 beers a week. Difficult to obtain history given alcohol intoxication but stated he has gone long periods of time without drinking before without withdrawal symptoms. Currently denies withdrawal symptoms on exam. He lives at home with his who is aware of his admission. He wishes to be full code at this time. He is on Rinvoq for dermatitis so he is immunocompromised. Patient was not brought in as a trauma alert. Allergies Allergy/AdvReac Type Severity Reaction Status Date / Time sulfamethoxazole Allergy Severe Unknown Verified 04/29/24 12:53 [From Bactrim] levofloxacin Allergy Hives Verified 04/29/24 12:53 Home Medications Medication Instructions Recorded Confirmed Type metoprolol succinate 25 mg 12.5 mg PO AMHS 01/18/18 05/09/24 History tablet,extended release 24 hr (Toprol XL) diltiazem HCl 120 mg 120 mg PO QAM #30 caps 09/09/23 04/29/24 Rx capsule,extended release 24 hr (Cardizem CD) albuterol sulfate 90 mcg/actuation 2 inh inhalation QID PRN shortness 09/15/23 05/09/24 Rx aerosol inhaler of breath or wheezing #8.5 grams albuterol sulfate 90 mcg/actuation 2 puff inhalation Q4 PRN Shortness 09/15/23 05/09/24 Rx aerosol inhaler (ProAir HFA) Of Breath Or Wheezing #6.7 grams cyclobenzaprine 10 mg tablet 10 mg PO HS PRN muscle spasm #10 10/21/23 05/09/24 Rx tabs gabapentin 100 mg capsule 100 mg PO Q8H PRN pain #20 caps 10/21/23 05/09/24 Rx tiotropium bromide 2.5 2 inh inhalation DAILY #4 grams 10/23/23 05/09/24 Rx mcg/actuation mist for inhalation (Spiriva Respimat) upadacitinib 15 mg tablet,extended 15 mg PO DAILY #30 tabs 12/09/23 05/09/24 Rx release 24 hr (Rinvoq) budesonide-formoterol HFA 160 2 inh inhalation BID #10.2 grams 04/12/24 05/09/24 Rx mcg-4.5 mcg/actuation aerosol inhaler (Symbicort) Past Med/Surg History Problem List (Updated 05/09/24 @ 06:31 by Farida Norman PA-C) COPD (chronic obstructive pulmonary disease) Hyponatremia Alcohol intoxication (Acute) Multiple rib fractures (Acute) Rib fractures Exercise hypoxemia Mediastinal lymphadenopathy History of heart disease (Chronic) Pulmonary emphysema (Chronic) Nocturnal hypoxia (Chronic) Environmental allergies (Chronic) COPD (chronic obstructive pulmonary disease) with chronic bronchitis (Chronic) Pulmonary nodule COPD, group D, by GOLD 2017 classification Polycythemia secondary to hypoxia Cellulitis of foot, right (Acute) Skin lesion of foot Contact dermatitis (Acute) Dyspnea Cough COVID-19 (Acute) Pneumonia due to COVID-19 virus Hypoxia Hypertension Medical History Pneumonia of both lower lobes Acute exacerbation of chronic obstructive pulmonary disease Hypoxia Pneumonia History of nicotine dependence Vasculitis History of fracture HX OF JAW BROKEN, WIRED, NO CURRENT HARDWARE, DENIES PROBLEMS WITH JAW MOVEMENT Back problem HX OF BACK BROKEN - NO SURGERY, HEALED ON OWN Mini stroke ? HX OF, POSSIBLE HX OF MENTIONED 15 YR AGO TO PT - NO RESIDUAL EFFECTS COPD (chronic obstructive pulmonary disease) Fast heart beat History of COPD Surgical History History of hand surgery 12/06/18 - FOR INFECTION OF RIGHT POINTER FINGER - HEALED History of left heart catheterization 2 YR AGO, PT REPORTS HEART CATH - FAST HEART BEAT...NO FINDINGS ([facility]) Family History Other No pertinent family history Social History Smoking Status: Current some day smoker Tobacco Type: Smokeless Tobacco (Dip or Chew) Age Started Using Tobacco: 18; Age Quit Using Tobacco: 50; Cigarettes Per Day: 40; Second Hand Exposure: Yes; Do You Dip or Chew Tobacco: Yes; Hx Alcohol Use: Yes Alcohol type: beer Hx Substance Use: No Preferred Language: Cameroonian Communication Ability: Effective Health Systems Analyst Required: No Beliefs That Will Affect Care: None marital status: Current Living Situation: Spouse current occupational 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 Non-toxic appearing. Laying in position, resting. HEENT- EOMI, mucous membranes dry. Hearing grossly intact. Heart-normal S1 and S2. No murmurs, rubs or gallops. Lungs-clear bilaterally, no respiratory distress, no accessory muscle use. Significant tenderness to palpation of left anterior and posterior chest. Abdomen-normal bowel sounds and soft. No ascites noted. Non-tender. Extremities- no clubbing, cyanosis, or edema. Bruising of bilateral lower extremity. Results & Data Results & Data Vital Signs (Past 12 Hours) Vital Signs Temp Pulse Pulse Resp BP BP Pulse Ox 05/09/24 05:33 98 H 20 108/72 90 05/09/24 05:33 93 H 20 108/72 89 L 05/09/24 03:14 36.7 C 94 H 16 121/81 91 05/09/24 03:10 90 94 05/09/24 02:57 88 15 121/81 92 05/09/24 02:18 83 14 91 05/09/24 02:16 36.7 C 05/09/24 02:15 86 21 132/86 93 02/02/25 02:06 82 05/09/24 02:03 84 14 94 O2 Del Method O2 Flow Rate 05/09/24 05:33 Room Air 05/09/24 05:33 Room Air 05/09/24 03:14 Room Air 0 05/09/24 03:10 Room Air 05/09/24 02:57 Room Air 05/09/24 02:18 Room Air 05/09/24 02:16 05/09/24 02:15 Room Air 05/09/24 02:06 05/09/24 02:03 Room Air Laboratory Results reviewed BMP and ETOH level ordered on admission: cbc, pt/inr,ptt, ua Diagnostic Findings reviewed head ct, chest ct, cervical spine ct Medications Administered ed: toradol 15 iv, fentanyl 50 mcg ECG Additional Comments: ordered Code Status & VTE Plan Code Status Full code VTE Prophylaxis Plan VTE Prophylaxis will be ordered: Yes Supervising Physician Co-Signing Physician Notes Attending addendum: I have physically seen this patient, have supervised the NAKITA's activities, and agree with the H&P unless as otherwise noted. Assessment and Plan: The patient is a 59-year-old male with past medical history including severe COPD, continued tobacco abuse, hypertension, dermatitis, chronic alcohol abuse. He presents to the emergency department after reported drinking 5+ alcoholic beverages, tripped over dog at home, fell on his left side and imaging in the emergency department reveals 3 left rib fractures at levels 5, 6 and 7. Discussion with the emergency department regarding appropriate placement with trauma protocol, PCU versus ICU. #Multiple rib fractures- Status fall from standing, as he tripped over his dog at home CT chest shows displaced sacral fracture left fifth rib, fractures left sixth and seventh ribs, with underlying pleural thickening, along with emphysema and atelectasis. CT cervical spine negative for acute changes CT head without contrast negative for acute changes Patient received 50 mcg fentanyl IV and Toradol 15 mg IV from the ED Acetaminophen 650 mg by mouth every 6 hours as needed for mild pain or fever Toradol 10 mg IV every 6 hours needed for moderate pain Oxycodone 5/10 1 every 4 hours needed for breakthrough pain Lidoderm patch Mucinex 600 mg by mouth every 12 hours Tessalon Perles 1 mg p.o. 3 times daily as needed Incentive spirometry Nasal cannula oxygen 2 L oxygen requirement at home Noted to be 89% on room air in ED Consult PT/OT General Surgery has been consulted Consult pulmonology Serial imaging as indicated /Alcohol intoxication/alcohol abuse- Alcohol level is 217.6 on admission Thiamine 100 mg IV daily Folic acid 1 mg IV daily Alcohol withdrawal protocol with IV Ativan as needed /Chronic stable conditions: Dermatitis on written Clarisa at home Hypertension metoprolol with hold parameters Nicotine use denies need for nicotine patch PG Care Time/CCT Total # of Minutes Spent Total Time Spent with Patient: Total time spent is greater than 50% in coordination of care (as documented) at patient's floor/unit and/or counseling patient: Coding Level of Care Code 97601 INT INP/OBS CARE 375MIN Diagnoses Multiple rib fractures S22.49XA Alcohol intoxication F10.929 Hyponatremia E87.1 COPD (chronic obstructive pulmonary disease) J44.9
[2024-05-09 06:06] LABS: INR 0.9 (0.9-1.1); Partial Thromboplastin Ratio 0.8; Partial Thromboplastin Time 22 Seconds (21-31); Prothrombin Time 10.3 Seconds (9.0-12.0)
--- NOTE | 2024-05-09 06:11 | Surgery Consultation ---
Date of Consultation May 09, 2024 Assessment & Plan (1) Rib fractures: I discussed with the treating emergency room physician and the hospitalist service and the patient is going to be admitted Per protocol the patient will require admission to the ICU as he has 3 contiguous rib fractures I discussed with the patient the importance of pulmonary toilet and incentive spirometry which should be employed Adequate analgesia should be provided so the patient is able to participate with pulmonary toilet Mobilization should be employed as able Would recommend checking a chest x-ray in 24 hours to ensure there is no interval change such as development of pleural effusion or pneumothorax; if either of these conditions arise they should be treated accordingly Additional recommendations with forthcoming based on his clinical course as unfolds as above. no indication for surgical intervention. pain control/pulmonary toilet. please call if any questions/concerns History of Present Illness Reason for Consultation: Rib fractures History of Present Illness This is a 59-year-old male who presented to the emergency department after falling. Patient says that he was walking his dog and he tripped and he subsequently fell on a pile of rocks landing on his left side. Since that time he reports pain in the left side of his chest wall as well as his back. He denies any shortness of breath or cough. He denies any headache. He denies any nausea or vomiting. He denies any visual changes. He does note that when he fell he did not strike his head or lose consciousness. He denies any abdominal pain. Since arrival to the emergency department the patient has had imaging which I independently reviewed. CT scan of the head showed no acute intracranial abnormalities. Cervical spine CT scan showed no evidence of fractures or subluxations of the cervical spine. CT scan of the chest showed the patient had displaced single site fractures of the left fifth, sixth, and seventh ribs. There is no evidence of pneumothorax. There is no pleural effusion. Laboratories have been ordered and are pending. At the time of my interview the patient was lying in bed. He was comfortable and in no distress Allergies Allergy/AdvReac Type Severity Reaction Status Date / Time sulfamethoxazole Allergy Severe Unknown Verified 04/29/24 12:53 [From Bactrim] levofloxacin Allergy Hives Verified 04/29/24 12:53 Home Medications Medication Instructions Recorded Confirmed Type metoprolol succinate 25 mg 12.5 mg PO AMHS 10/14/18 02/02/25 History tablet,extended release 24 hr (Toprol XL) diltiazem HCl 120 mg 120 mg PO QAM #30 caps 09/09/23 04/29/24 Rx capsule,extended release 24 hr (Cardizem CD) albuterol sulfate 90 mcg/actuation 2 inh inhalation QID PRN shortness 09/15/23 05/09/24 Rx aerosol inhaler of breath or wheezing #8.5 grams albuterol sulfate 90 mcg/actuation 2 puff inhalation Q4 PRN Shortness 09/15/23 05/09/24 Rx aerosol inhaler (ProAir HFA) Of Breath Or Wheezing #6.7 grams cyclobenzaprine 10 mg tablet 10 mg PO HS PRN muscle spasm #10 10/21/23 05/09/24 Rx tabs gabapentin 100 mg capsule 100 mg PO Q8H PRN pain #20 caps 10/21/23 05/09/24 Rx tiotropium bromide 2.5 2 inh inhalation DAILY #4 grams 10/23/23 05/09/24 Rx mcg/actuation mist for inhalation (Spiriva Respimat) upadacitinib 15 mg tablet,extended 15 mg PO DAILY #30 tabs 12/09/23 05/09/24 Rx release 24 hr (Rinvoq) budesonide-formoterol HFA 160 2 inh inhalation BID #10.2 grams 04/12/24 05/09/24 Rx mcg-4.5 mcg/actuation aerosol inhaler (Symbicort) Patient History Medical History Pneumonia of both lower lobes Acute exacerbation of chronic obstructive pulmonary disease Hypoxia Pneumonia History of nicotine dependence Vasculitis History of fracture HX OF JAW BROKEN, WIRED, NO CURRENT HARDWARE, DENIES PROBLEMS WITH JAW MOVEMENT Back problem HX OF BACK BROKEN - NO SURGERY, HEALED ON OWN Mini stroke ? HX OF, POSSIBLE HX OF MENTIONED 15 YR AGO TO PT - NO RESIDUAL EFFECTS COPD (chronic obstructive pulmonary disease) Fast heart beat History of COPD Surgical History History of hand surgery 12/06/18 - FOR INFECTION OF RIGHT POINTER FINGER - HEALED History of left heart catheterization 2 YR AGO, PT REPORTS HEART CATH - FAST HEART BEAT...NO FINDINGS ([facility]) Family History Other No pertinent family history Social History Smoking Status: Current some day smoker Tobacco Type: Cigarettes Age Started Using Tobacco: 18; Age Quit Using Tobacco: 50; Cigarettes Per Day: 40; Second Hand Exposure: Yes; Do You Dip or Chew Tobacco: Yes; Hx Alcohol Use: No Hx Substance Use: No Preferred Language: Bahraini Communication Ability: Effective Comb Setter Required: No Beliefs That Will Affect Care: None marital status: Current Living Situation: Spouse 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 occupational 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 There is slightly decreased at the bases. Patient did have pain with palpation of the left lateral portion of his chest wall as well as the paraspinal region to the left of his spine. Cardiovascular: Rate/Rhythm: regular rate and regular rhythm Gastrointestinal (Abdomen): Abdomen is soft and nondistended. There is no pain noted with palpation Musculoskeletal: No gross orthopedic abnormalities of his extremities. Palpation of the p atient's spine did not reveal any masses or spasms or crepitus but the patient did have some point tenderness along his thoracic spine and paraspinal regions. Skin: no rashes Neurologic: moves all extremities Psychiatric: A+Ox3, euthymic affect Results & Data Vital Signs (Past 12 Hours) Vital Signs Temp Pulse Pulse Resp BP BP Pulse Ox 05/09/24 05:33 98 H 20 108/72 90 05/09/24 05:33 93 H 20 108/72 89 L 05/09/24 03:14 36.7 C 94 H 16 121/81 91 05/09/24 03:10 90 94 05/09/24 02:57 88 15 121/81 92 05/09/24 02:18 83 14 91 05/09/24 02:16 36.7 C 05/09/24 02:15 86 21 132/86 93 05/09/24 02:06 82 05/09/24 02:03 84 14 94 O2 Del Method O2 Flow Rate 05/09/24 05:33 Room Air 05/09/24 05:33 Room Air 05/09/24 03:14 Room Air 0 05/09/24 03:10 Room Air 05/09/24 02:57 Room Air 05/09/24 02:18 Room Air 05/09/24 02:16 05/09/24 02:15 Room Air 05/09/24 02:06 05/09/24 02:03 Room Air PG Care Time/CCT Total # of Minutes Spent Total Time Spent with Patient: Total time spent is greater than 50% in coordination of care (as documented) at patient's floor/unit and/or counseling patient: Coding Level of Care Code 82534 IN/OBS CONSULT LVL 5,80M Diagnoses Rib fractures S22.49XA
[2024-05-09] MEDS: LIDOCAINE 5% 1 PATCH TD SCH (07:16)
[2024-05-09] MEDS: SODIUM CHLORIDE 0.9% 500 ML IV SCH (07:17)
[2024-05-09 07:39] LABS: Basophils # (auto) 0.03 K/uL (0.00-0.20); Basophils % (auto) 0.5 %; Eosinophils # (auto) 0.03 K/uL (0.00-0.50); Eosinophils % (auto) 0.5 %; Hematocrit (blood only) 36.2 % (42.0-52.0); Hemoglobin 12.4 g/dl (14.0-18.0); Immature Granulocytes # (auto) 0.03 K/uL (0.01-0.20); Immature Granulocytes % (auto) 0.5 %; Lymphocytes # (auto) 1.05 K/uL (1.20-3.40); Lymphocytes % (auto) 15.9 %; Mean Corpuscular Hemoglobin 31.6 pg (25.0-34.0); Mean Corpuscular Hgb Conc 34.3 g/dL (32.0-36.0); Mean Corpuscular Volume 92.1 fL (80.0-100.0); Monocytes # (auto) 0.68 K/uL (0.11-0.59); Monocytes % (auto) 10.3 %; Neutrophils # (auto) 4.77 K/uL (1.40-6.50); Neutrophils % (auto) 72.3 %; Platelet Count 210 K/uL (130-400); RDW Coefficient of Variation 13.1 % (11.5-14.5); RDW Standard Deviation 44.5 fL (36.4-46.3); Red Blood Count 3.93 M/uL (4.70-6.10); White Blood Count 6.59 K/ul (4.8-10.8)
[2024-05-09] MEDS ORDERED: LORazepam 1 MG TAB PO PRN ×3 (07:53)
[2024-05-09] MEDS ORDERED: Ativan PO Alcohol Withdrawal--Active Protocol PO PRN (07:53)
[2024-05-09] MEDS ORDERED: ALBUTEROL HFA 8 GM INHALER INH PRN (07:53)
[2024-05-09] MEDS ORDERED: DOCUSATE SODIUM 100 MG CAP PO PRN (07:53)
[2024-05-09] MEDS ORDERED: ONDANSETRON INJ 2 MG/ML 2 ML VIAL IV PRN (07:53)
[2024-05-09] MEDS ORDERED: GABAPENTIN 100 MG CAP PO PRN (07:53)
[2024-05-09] MEDS ORDERED: oxyCODONE HCL IR 5 MG TAB (IMMEDIATE RELEASE) PO PRN (07:53)
[2024-05-09] MEDS ORDERED: MELATONIN 3 MG TAB PO PRN (07:53)
--- NOTE | 2024-05-09 08:21 | Hospitalist Progress Note ---
Date of Service May 09, 2024 Assessment & Plan (1) Multiple rib fractures: (2) Alcohol intoxication: (3) Hyponatremia: (4) COPD (chronic obstructive pulmonary disease): Plan Patient is a 59-year-old male with past medical history of COPD GOLD D, hypertension, dermatitis. Patient had ETOH level of 0.2 and tripped over his dog resulting in 3 consecutive left rib fractures, 1 displaced. Patient is being admitted to ICU due to rib fractures and pain management. #multiple rib fractures L 5,6,7 S/p fall from standing Chest CT showed displaced single fracture of left fifth rib, Fractures left sixth and seventh ribs, Underlying pleural thickening, Along with emphysema and atelectasis Cervical spine CT negative for acute changes, head CT negative for acute changes Received fentanyl 50 mcg plus Toradol 15 Mg in ED Transition to - Tylenol prn, Toradol prn, and Oxycodone 5/10 (for pain not relieved by #1 and 2) lidoderm patch splint with pillow or blanket to left chest as needed when coughing, moving, or with pain Mucinex, Tessalon Perles, incentive spirometry oxygen as needed O2 goal greater than 92% PT/OT evals consult general surgery Consult pulmonology Will need repeat CXR prior to discharge fall and aspiration precautions #Alcohol intoxication/ alcohol abuse Long history of alcohol use for many years Patient reports 6-10 beers per week Denies withdrawal symptoms on admission EtOH level 217.6 on admission Alcohol withdrawal protocol with Ativan as needed IV thiamine and folate daily B12, folate, B1 levels ordered Seizure precautions #Hyponatremia NA 134 on admission Suspect 2/2 hypotonic/dehydration with alcohol use Will order 500 mL NSS at 80 mL/h Trend BMP; if persistently low consider serum osmole, urine osmole, urine NA #COPD History of COPD requiring oxygenation Uses 2L NC at bedtime and 2L during the day as needed (roughly 2 times per week) Continue oxygen at bedtime Oxygen as needed with rib fractures as above Continue home inhalers Chronic stable diagnoses: Dermatitison Rinvoq at home; held HTNpatient on metoprolol at home - Continue, denies using Cardizem as on recent med list (re-eval with patient when no longer intoxicated) nicotine useuses snuff at home; denies need for nicotine patch on admission VTE ppx: SCDs Diet: regular Admission and Anticipated Discharge Date Admission Date: May 09, 2024 Subjective pt is with moderate to severe pain with moving and deep inspiration no cough no signs of withdrawal at present Physical Exam Physical Exam: awake and alert painful left flank splinting to inspiration pt with COPD and has poor air movement throughout Results & Data Results & Data Vital Signs (Past 12 Hours) Vital Signs Temp Pulse Pulse Resp BP BP Pulse Ox 05/09/24 07:53 05/09/24 06:20 91 H 20 120/68 93 05/09/24 06:03 92 H 05/09/24 05:33 98 H 20 108/72 90 05/09/24 05:33 93 H 20 108/72 89 L 05/09/24 03:14 98.1 F 94 H 16 121/81 91 05/09/24 03:10 90 94 05/09/24 02:57 88 15 121/81 92 05/09/24 02:18 83 14 91 05/09/24 02:16 98.1 F 05/09/24 02:15 86 21 132/86 93 05/09/24 02:06 82 05/09/24 02:03 84 14 94 Pulse Ox O2 Del Method O2 Del Method O2 Flow Rate 05/09/24 07:53 92 Room Air 05/09/24 06:20 Nasal Cannula 2 05/09/24 06:03 05/09/24 05:33 Nasal Cannula 2 05/09/24 05:33 Room Air 05/09/24 03:14 Room Air 0 05/09/24 03:10 Room Air 05/09/24 02:57 Room Air 05/09/24 02:18 Room Air 05/09/24 02:16 05/09/24 02:15 Room Air 05/09/24 02:06 05/09/24 02:03 Room Air PG Care Time/CCT Total # of Minutes Spent Total Time Spent with Patient: Total time spent is greater than 50% in coordination of care (as documented) at patient's floor/unit and/or counseling patient: Coding Level of Care Code None Diagnoses Multiple rib fractures S22.49XA Alcohol intoxication F10.929 Hyponatremia E87.1 COPD (chronic obstructive pulmonary disease) J44.9
[2024-05-09 08:23] LABS: Folate (Folic Acid),Ser orPlas 10.22 ng/ml (>5.38)
[2024-05-09] MEDS: BENZONATATE 100 MG CAPSULE PO SCH (08:49)
[2024-05-09] MEDS: guaiFENesin 600 MG TABCR PO SCH (08:56)
[2024-05-09] MEDS: FOLIC ACID 1 MG in SYRINGE 9.8 ML IV SCH (08:56)
[2024-05-09] MEDS: METOPROLOL SUCC 25MG EXT REL TAB PO SCH (08:57)
[2024-05-09] MEDS: oxyCODONE HCL IR 5 MG TAB (IMMEDIATE RELEASE) PO PRN (08:58)
[2024-05-09] MEDS: THIAMINE HCL 100 MG in SYRINGE 9 ML IV SCH (08:59)
--- NOTE | 2024-05-09 09:13 | Electrocardiogram Report ---
Test Reason : Blood Pressure : */* mmHG Vent. Rate : 92 BPM Atrial Rate : 92 BPM P-R Int : 180 ms QRS Dur : 102 ms QT Int : 392 ms P-R-T Axes : 61 58 71 degrees QTcB Int : 484 ms Normal sinus rhythm Incomplete right bundle branch block Prolonged QT Abnormal ECG When compared with ECG of 02-Sep-2023 17:35, Incomplete right bundle branch block is now Present Confirmed by Santhosh Resendiz ([id number]) on 05/09/2024 9:12:31 AM Referred By: REFERRED SELF Confirmed By: Santhosh Resendiz
[2024-05-09] MEDS: FLUTICASONE/VILANTEROL 100/25MCG 14 PUFFS/INHALER INH SCH (09:29)
[2024-05-09] MEDS: UMECLIDINIUM BROMIDE 62.5MCG/BLISTER 7 PUFFS/INHALER INH SCH (09:29)
--- NOTE | 2024-05-09 10:12 | Critical Care Consultation ---
Date of Consultation May 09, 2024 Assessment & Plan (1) Alcohol intoxication: (2) Multiple rib fractures: (3) Exercise hypoxemia: (4) Pulmonary emphysema: (5) COPD (chronic obstructive pulmonary disease) with chronic bronchitis: (6) History of nicotine dependence: Plan CT chest 05/09/2024 personally reviewed: Bullous emphysema appreciated bilaterally, more pronounced on the left upper lobe along with centrilobular emphysema Multiple displaced rib fracture appreciated on the left. 6 and seventh ribs with no pneumothorax or pleural effusion Dependent atelectasis bilateral lower lobes No significant mediastinal lymphadenopathy -- Multiple displaced rib fractures on the left side S/p fall from alcohol intoxication Alcohol level 217 on coming to the hospital Pain control with Tylenol For severe pain would recommend opioids Incentive spirometry -- COPD with bullous emphysema On high-dose Symbicort and Spiriva at home Will change it to nebulized while the patient is in the hospital --Chronic hypoxic respiratory failure Uses 2 L oxygen on exertion as needed Try to keep O2 saturation between 90-92% -- Current smoker > [id number] smoking history Plan: Would recommend CIWA protocol for the patient as he is at high risk for going into withdrawal Pain management for the left-sided rib fractures, if the pain is unbearable then consult anesthesia Repeat chest x-ray in the morning Change inhalers to nebulized medication while he is in the hospital. Please note the above document was generated using voice recognition software. It may contain grammatical, syntax or spelling errors.Any formal questions or concerns about the content, text or information contained within the body of this dictation should be directly addressed to the provider for clarification. History of Present Illness Attending Physician: Champ Ramirez MD History of Present Illness 59-year-old male coming to the hospital for mechanical fall and left-sided chest pain Past medical history: COPD and emphysema, chronic hypoxic respiratory failure, hypertension, dermatitis Patient was admitted to the hospital for multiple rib fractures At the time of examination was lying in right recommended position. He was getting Tylenol IV He stated that the pain is better controlled. He is heavy drinker, 4 beers on a daily basis. He stated that he tripped on his dog and fell down. Denies any loss of consciousness, no palpitations or dizziness prior to the fall Since coming to the hospital he is doing better with pain. Does complain of discomfort on the left side whenever he moves. Denies any shortness of breath. He is compliant with his inhalers at home. No dysuria, diarrhea No hemoptysis. Social history:> 14-[id number] smoking history, currently smoking a pack a day, 4 beers on a daily basis Allergies Allergy/AdvReac Type Severity Reaction Status Date / Time sulfamethoxazole Allergy Severe Unknown Verified 04/29/24 12:53 [From Bactrim] levofloxacin Allergy Hives Verified 04/29/24 12:53 Home Medications Medication Instructions Recorded Confirmed Type metoprolol succinate 25 mg 12.5 mg PO AMHS 01/18/18 05/09/24 History tablet,extended release 24 hr (Toprol XL) diltiazem HCl 120 mg 120 mg PO QAM #30 caps 09/09/23 04/29/24 Rx capsule,extended release 24 hr (Cardizem CD) albuterol sulfate 90 mcg/actuation 2 inh inhalation QID PRN shortness 09/15/23 05/09/24 Rx aerosol inhaler of breath or wheezing #8.5 grams albuterol sulfate 90 mcg/actuation 2 puff inhalation Q4 PRN Shortness 09/15/23 05/09/24 Rx aerosol inhaler (ProAir HFA) Of Breath Or Wheezing #6.7 grams cyclobenzaprine 10 mg tablet 10 mg PO HS PRN muscle spasm #10 10/21/23 05/09/24 Rx tabs gabapentin 100 mg capsule 100 mg PO Q8H PRN pain #20 caps 10/21/23 05/09/24 Rx tiotropium bromide 2.5 2 inh inhalation DAILY #4 grams 10/23/23 05/09/24 Rx mcg/actuation mist for inhalation (Spiriva Respimat) upadacitinib 15 mg tablet,extended 15 mg PO DAILY #30 tabs 12/09/23 05/09/24 Rx release 24 hr (Rinvoq) budesonide-formoterol HFA 160 2 inh inhalation BID #10.2 grams 04/12/24 05/09/24 Rx mcg-4.5 mcg/actuation aerosol inhaler (Symbicort) Patient History Medical History Pneumonia of both lower lobes Acute exacerbation of chronic obstructive pulmonary disease Hypoxia Pneumonia History of nicotine dependence Vasculitis History of fracture HX OF JAW BROKEN, WIRED, NO CURRENT HARDWARE, DENIES PROBLEMS WITH JAW MOVEMENT Back problem HX OF BACK BROKEN - NO SURGERY, HEALED ON OWN Mini stroke ? HX OF, POSSIBLE HX OF MENTIONED 15 YR AGO TO PT - NO RESIDUAL EFFECTS COPD (chronic obstructive pulmonary disease) Fast heart beat History of COPD Surgical History History of hand surgery 12/06/18 - FOR INFECTION OF RIGHT POINTER FINGER - HEALED History of left heart catheterization 2 YR AGO, PT REPORTS HEART CATH - FAST HEART BEAT...NO FINDINGS ([facility]) Family History Other No pertinent family history Social History Smoking Status: Current some day smoker Tobacco Type: Cigarettes Age Started Using Tobacco: 18; Age Quit Using Tobacco: 50; Cigarettes Per Day: 40; Second Hand Exposure: Yes; Do You Dip or Chew Tobacco: Yes; Hx Alcohol Use: No Hx Substance Use: No Preferred Language: Persian Communication Ability: Effective Manager Policy Required: No Beliefs That Will Affect Care: None marital status: Current Living Situation: Spouse current occupational 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 Feels Safe at Home: Yes Assistive Devices: Oxygen - Continuous Review of Systems 2 Review of Systems: All systems reviewed & are unremarkable except as noted in HPI & below Physical Exam 2 Physical Exam: Constitutional: No acute distress HEENT: EOMI, PERRLA Respiratory system: Decreased air entry bilaterally, no wheeze, no rhonchi, mild crackles bilateral lower lobes CVS: S1-S2 positive, no murmurs or gallops Abdomen: Soft, nontender, nondistended, positive bowel sounds x4 Extremities: +2 pulses bilaterally radialis/ dorsalis pedis, no cyanosis, +1 pitting edema bilateral lower extremity Neuro: Awake alert oriented x3 Psych: Normal mood and affect G/U: No Salazar Skin: no rashes, warm and dry Lymphatic: no cervical or axillary lymphadenopathy Results & Data Results & Data Vital Signs (Past 12 Hours) Vital Signs Temp Pulse Pulse Resp BP BP Pulse Ox 05/09/24 08:00 90 16 128/70 92 05/09/24 07:53 05/09/24 06:20 91 H 20 120/68 93 05/09/24 06:03 92 H 05/09/24 05:33 98 H 20 108/72 90 05/09/24 05:33 93 H 20 108/72 89 L 05/09/24 03:14 36.7 C 94 H 16 121/81 91 05/09/24 03:10 90 94 05/09/24 02:57 88 15 121/81 92 05/09/24 02:18 83 14 91 05/09/24 02:16 36.7 C 05/09/24 02:15 86 21 132/86 93 05/09/24 02:06 82 05/09/24 02:03 84 14 94 Pulse Ox O2 Del Method O2 Del Method O2 Flow Rate 05/09/24 08:00 Room Air 05/09/24 07:53 92 Room Air 05/09/24 06:20 Nasal Cannula 2 05/09/24 06:03 05/09/24 05:33 Nasal Cannula 2 05/09/24 05:33 Room Air 05/09/24 03:14 Room Air 0 05/09/24 03:10 Room Air 05/09/24 02:57 Room Air 05/09/24 02:18 Room Air 05/09/24 02:16 05/09/24 02:15 Room Air 05/09/24 02:06 05/09/24 02:03 Room Air Laboratory Results 05/09/24 07:16 05/09/24 02:16 Coding Level of Care Code 43976 INT INP/OBS CARE 3/75MIN Diagnoses Alcohol intoxication F10.929 Multiple rib fractures S22.49XA Exercise hypoxemia R09.02 Pulmonary emphysema, unspecified emphysema type J43.9 Emphysema type: unspecified COPD (chronic obstructive pulmonary disease) with chronic bronchitis J44.9 History of nicotine dependence Z87.891 (4) Pulmonary emphysema Emphysema type: unspecified Qualified Code(s): J43.9 - Emphysema, unspecified
[2024-05-09] MEDS: ACETAMINOPHEN 1,000 MG/100 ML VIAL IV PRN (10:24)
[2024-05-09 10:52] LABS: Magnesium 1.9 mg/dl (1.7-2.4); Phosphorus 2.3 mg/dl (2.5-4.9)
[2024-05-09] MEDS: MULTIVITAMIN TAB PO SCH (14:48)
[2024-05-09] MEDS: KETOROLAC TROMETHAMINE 15 MG/ML VIAL IV PRN (16:45)
--- NOTE | 2024-05-09 19:36 | Billing Data ---
Date of Service May 09, 2024 Coding Level of Care Code 27446 INT INP/OBS CARE
[2024-05-09] MEDS: FORMOTEROL 20 MCG/2 ML VIAL NEB SCH (19:38)
[2024-05-09] MEDS: BUDESONIDE 0.5 MG/2 ML VIAL (PULMICORT) NEB SCH (19:38)
[2024-05-10 04:40] LABS: Basophils # (auto) 0.02 K/uL (0.00-0.20); Basophils % (auto) 0.4 %; Eosinophils # (auto) 0.19 K/uL (0.00-0.50); Eosinophils % (auto) 4.3 %; Hematocrit (blood only) 38.2 % (42.0-52.0); Hemoglobin 12.6 g/dl (14.0-18.0); Immature Granulocytes # (auto) 0.01 K/uL (0.01-0.20); Immature Granulocytes % (auto) 0.2 %; Lymphocytes # (auto) 0.97 K/uL (1.20-3.40); Lymphocytes % (auto) 21.7 %; Mean Corpuscular Hemoglobin 31.3 pg (25.0-34.0); Mean Corpuscular Volume 94.8 fL (80.0-100.0); Mean Platelet Volume 10.3 fL (9.4-12.4); Monocytes # (auto) 0.49 K/uL (0.11-0.59); Neutrophils # (auto) 2.79 K/uL (1.40-6.50); Neutrophils % (auto) 62.4 %; Platelet Count 172 K/uL (130-400); RDW Coefficient of Variation 13.4 % (11.5-14.5); RDW Standard Deviation 46.6 fL (36.4-46.3); Red Blood Count 4.03 M/uL (4.70-6.10); White Blood Count 4.47 K/ul (4.8-10.8)
[2024-05-10 04:47] LABS: BUN Creatinine Ratio 19.2 (10-20); Creatinine Clr Calc Pharmacy 81.5 ml/min; Potassium 4.1 mmol/L (3.5-5.1)
--- NOTE | 2024-05-10 07:36 | XRay Report ---
EXAM: XR chest 1V portable CLINICAL HISTORY: Follow up. TECHNIQUE: An X-ray image of the chest is obtained in AP projection. COMPARISON: X-ray dated 10/20/23. FINDINGS: Pulmonary Parenchyma: Bilateral basal interstitial/GGO opacity with silhouetting of both hemidiaphragm suggesting bilateral basal subsegmental atlectasis. BIlateral apical pleural thickening is noted. Oblitration of the right costophrenic angle suggests minimal right-sided pleural effusion. Increase upper lung zone lucency suggesting emphysematous changes. No evidence of lung collapse. No pulmonary nodules are identified. Heart and Mediastinum: Heart size can not be assessed due to the AP projection. No mediastinal widening or masses. No hilar or mediastinal lymphadenopathy. Bony Thorax: Left 5th, 6th and 7th rib fracture. The bony thorax appears intact without fractures or deformities. Soft Tissues: Soft tissues overlying the chest wall are unremarkable. IMPRESSION: Bilateral basal interstitial /GGO with silhouetting of both hemidiaphragm suggesting subsegmental atelectasis. (stable finding) Right mild pleural effusion (new finding). Bilateral upper lung zone lucency suggesting chronic emphysematous changes (stable). Left 5th,6th and 7th rib fracture (stable). Electronically signed by Kat Pacheco 05-10-2024 07:35 AM
[2024-05-10] MEDS ORDERED: ACETAMINOPHEN 325 MG TAB PO PRN (10:56)
[2024-05-10] MEDS: IBUPROFEN 200 MG TAB PO PRN (11:57)
--- NOTE | 2024-05-10 22:21 | Hospitalist Progress Note ---
Date of Service May 10, 2024 Assessment & Plan (1) Multiple rib fractures: (2) Alcohol intoxication: (3) Hyponatremia: (4) COPD (chronic obstructive pulmonary disease): Plan Patient is a 59-year-old male with past medical history of COPD, hypertension, dermatitis. Patient had 5+ alcoholic drinks and tripped over his dog resulting in 3 consecutive left rib fractures, 1 displaced. Patient is being admitted to PCU due to rib fractures and pain management. #multiple rib fractures S/p fall from standing Chest CT showed displaced single fracture of left fifth rib, Fractures left sixth and seventh ribs, Underlying pleural thickening, Along with emphysema and atelectasis Cervical spine CT negative for acute changes, head CT negative for acute changes Received fentanyl 50 mcg plus Toradol 15 Mg in ED Transition to - Tylenol prn, Toradol prn, and Oxycodone 5/10 (for pain not relieved by #1 and 2) lidoderm patch splint with pillow or blanket to left chest as needed when coughing, moving, or with pain Mucinex, Tessalon Perles, incentive spirometry oxygen as needed O2 goal greater than 92% PT/OT evals consulted general surgery Consulted pulmonology Will need repeat CXR prior to discharge fall and aspiration precautions will downgrade from ICU. continues to require oxygen. discussed with pulmonary #Alcohol intoxication/ alcohol abuse Long history of alcohol use for many years Patient reports 6-10 beers per week Denies withdrawal symptoms on admission EtOH level 217.6 on admission Alcohol withdrawal protocol with Ativan as needed IV thiamine and folate daily B12, folate, B1 levels ordered Seizure precautions #Hyponatremia NA 134 on admission Suspect 2/2 hypotonic/dehydration with alcohol use Will order 500 mL NSS at 80 mL/h Trend BMP; if persistently low consider serum osmole, urine osmole, urine NA #COPD History of COPD requiring oxygenation Uses 2L NC at bedtime and 2L during the day as needed (roughly 2 times per week) Continue oxygen at bedtime Oxygen as needed with rib fractures as above Continue home inhalers Chronic stable diagnoses: Dermatitison Rinvoq at home; held HTNpatient on metoprolol at home - Continue, denies using Cardizem as on recent med list (re-eval with patient when no longer intoxicated) nicotine useuses snuff at home; denies need for nicotine patch on admission VTE ppx: SCDs Diet: regular Dispo: [facility] Admission and Anticipated Discharge Date Admission Date: May 09, 2024 Subjective Patient reports no new symptoms. Patient states he is feeling better. Patient refusing oxygen. Pain is better controlled but not at goal. Physical Exam Physical Exam: Constitutional: No acute distress HEENT: EOMI, PERRLA Respiratory system: Decreased air entry bilaterally, no wheeze, no rhonchi. CVS: S1-S2 positive, no murmurs or gallops Abdomen: Soft, nontender, nondistended, positive bowel sounds x4 Extremities: +2 pulses bilaterally radialis/ dorsalis pedis, no cyanosis, +1 pitting edema bilateral lower extremity \ Results & Data Results & Data Vital Signs (Past 12 Hours) Vital Signs Temp Pulse Pulse Pulse Resp BP BP 05/10/24 21:00 73 16 05/10/24 20:40 71 18 05/10/24 19:50 36.7 C 83 16 147/78 H 05/10/24 16:07 05/10/24 16:03 36.6 C 68 18 169/80 H 05/10/24 15:20 71 22 163/82 H 05/10/24 12:03 90 21 05/10/24 12:00 152/92 H 05/10/24 12:00 36.2 C L 05/10/24 12:00 05/10/24 11:51 70 14 05/10/24 11:15 69 14 05/10/24 11:00 160/85 H 05/10/24 10:57 72 16 05/10/24 10:34 148/93 H Pulse Ox Pulse Ox O2 Del Method O2 Del Method O2 Flow Rate O2 Flow Rate 05/10/24 21:00 90 Nasal Cannula 3 05/10/24 20:40 93 Nasal Cannula 3 05/10/24 19:50 92 Nasal Cannula 3 05/10/24 16:07 Nasal Cannula 2 05/10/24 16:03 90 Room Air, Nasal Cannula 2 05/10/24 15:20 94 Nasal Cannula 2 05/10/24 12:03 94 05/10/24 12:00 05/10/24 12:00 05/10/24 12:00 95 Nasal Cannula 2 05/10/24 11:51 86 L 05/10/24 11:15 86 L 05/10/24 11:00 05/10/24 10:57 90 05/10/24 10:34 PG Care Time/CCT Total # of Minutes Spent Total Time Spent with Patient: Total time spent is greater than 50% in coordination of care (as documented) at patient's floor/unit and/or counseling patient: Coding Level of Care Code 19771 SUB INP/OBS CARE 2/35MIN Diagnoses Multiple rib fractures S22.49XA Alcohol intoxication F10.929 Hyponatremia E87.1 COPD (chronic obstructive pulmonary disease) J44.9
[2024-05-11 09:45] LABS: Hemoglobin 12.6 g/dl (14.0-18.0); Mean Corpuscular Hgb Conc 33.2 g/dL (32.0-36.0); Mean Corpuscular Volume 93.6 fL (80.0-100.0); Mean Platelet Volume 10.1 fL (9.4-12.4); Platelet Count 169 K/uL (130-400); RDW Coefficient of Variation 13.4 % (11.5-14.5); RDW Standard Deviation 46.1 fL (36.4-46.3); Red Blood Count 4.06 M/uL (4.70-6.10); White Blood Count 5.27 K/ul (4.8-10.8)
[2024-05-11 09:49] VITALS: O2SAT 90
[2024-05-11 10:05] LABS: BUN Creatinine Ratio 18.2 (10-20); Calcium 8.3 mg/dl (8.6-10.3); Creatinine Clr Calc Pharmacy 96.3 ml/min; Potassium 4.2 mmol/L (3.5-5.1)
--- NOTE | 2024-05-11 14:04 | Discharge Summary ---
Discharge Summary Date of Service May 11, 2024 Principal Dx & Hospital Course #1 = Principal Diagnosis (1) Multiple rib fractures: (2) Alcohol intoxication: (3) Hyponatremia: (4) COPD (chronic obstructive pulmonary disease): Plan Patient is a 59-year-old male with past medical history of COPD, hypertension, dermatitis. Patient had 5+ alcoholic drinks and tripped over his dog resulting in 3 consecutive left rib fractures, 1 displaced. Patient is being admitted to PCU due to rib fractures and pain management. #multiple rib fractures S/p fall from standing Chest CT showed displaced single fracture of left fifth rib, Fractures left sixth and seventh ribs, Underlying pleural thickening, Along with emphysema and atelectasis Cervical spine CT negative for acute changes, head CT negative for acute changes Received fentanyl 50 mcg plus Toradol 15 Mg in ED Transition to - Tylenol prn, Toradol prn, and Oxycodone 5/10 (for pain not relieved by #1 and 2) lidoderm patch splint with pillow or blanket to left chest as needed when coughing, moving, or with pain Mucinex, Tessalon Perlbernardo, incentive spirometry oxygen as needed O2 goal greater than 92% PT/OT evals consulted general surgery Consulted pulmonology Will need repeat CXR prior to discharge fall and aspiration precautions will downgrade from ICU. continues to require oxygen. discussed with pulmonary #Alcohol intoxication/ alcohol abuse Long history of alcohol use for many years Patient reports 6-10 beers per week Denies withdrawal symptoms on admission EtOH level 217.6 on admission Alcohol withdrawal protocol with Ativan as needed IV thiamine and folate daily B12, folate, B1 levels ordered Seizure precautions #Hyponatremia NA 134 on admission Suspect 2/2 hypotonic/dehydration with alcohol use Will order 500 mL NSS at 80 mL/h Trend BMP; if persistently low consider serum osmole, urine osmole, urine NA #COPD History of COPD requiring oxygenation Uses 2L NC at bedtime and 2L during the day as needed (roughly 2 times per week) Continue oxygen at bedtime Oxygen as needed with rib fractures as above Continue home inhalers Chronic stable diagnoses: Dermatitison Rinvoq at home; held HTNpatient on metoprolol at home - Continue, denies using Cardizem as on recent med list (re-eval with patient when no longer intoxicated) nicotine useuses snuff at home; denies need for nicotine patch on admission VTE ppx: SCDs Diet: regular Dispo: [facility] Admission HPI Per Admitting Provider Patient is a 59-year-old male with past medical history of COPD, hypertension, dermatitis. Patient had 5+ alcoholic drinks and tripped over his dog resulting in 3 consecutive left rib fractures, 1 displaced. patient is being admitted to PCU due to rib fractures and pain management. . Patient seen at bedside. Patient is mildly confused as alcohol intoxication. He had roughly 5 drinks and tripped over his dog falling on his left side. He stated he had left shoulder and rib pain; denies pain elsewhere. He denies head strike is not on any blood thinners. Feels it is difficult to take a deep breath. He does have a history of COPD and uses 2L O2 via nasal cannula at bedtime and 2 L as needed which he uses roughly 2 times a week. Patient denies headache, dizziness, lightheadedness, cough, abdominal pain, nausea, vomiting, diarrhea, numbness, tingling. He does use snuff but denies need for nicotine patch at this time. He does have a history of alcohol use for several years; patient stated he has 6-10 beers a week. Difficult to obtain history given alcohol intoxication but stated he has gone long periods of time without drinking before without withdrawal symptoms. Currently denies withdrawal symptoms on exam. He lives at home with his who is aware of his admission. He wishes to be full code at this time. He is on Rinvoq for dermatitis so he is immunocompromised. Patient was not brought in as a trauma alert. Discharge Plan Discharge Items Patient Disposition: Home - Self-Care Reason For Visit: 3 CONSECUTIVE RIB FRACTURES Discharge Diagnosis: rib fractures Activity: Per Instructions section Non-emergency contact: Primary Care Provider Call non-emergency contact if: you have any medication questions Follow-up/Referrals: Mayuri Mayers MD [Primary Care Provider] - Diet: Regular Addtl Attending Provider Instructions: For your rib pain we will recommend a combination of ibuprofen and Tylenol. The following are scheduled medications. Take Tylenol 650 mg every 6 hours Take Ibuprofen 600 mg with meals. (every 8 hours) Also continue the lidocaine patch during the day. For break through pain: you can continue oxycodone 5 mg for moderate pain and 10 mg for severe pain. Remember the pain goal is 4/10 pain level. Please try to followup with PCP within 1 week. Do not operate heavy machinery while on the narcotics. Do not consume alcohol while taking narcotics. Pending Studies at Discharge: No Stand-Alone Forms: My [facility], Pain - Opioid Pain Management, Work/School Release, Smoking Cessation Medications and DC Order Prescriptions: New ibuprofen 600 mg tablet 600 mg PO Q8H 14 Days Qty: 42 0RF Rx Instructions: Take with meals acetaminophen 325 mg Tablet 650 mg PO QID 14 Days Qty: 120 0RF Rx Instructions: Take 4 times a day. oxycodone 5 mg Tablet 5 mg PO Q6 PRN (Reason: moderate/severe pain) Qty: 50 0RF Rx Instructions: Take 1 tablet for moderate pain Take 2 tablets for severe pain. No alcohol while taking medicine lidocaine 5 % Adhesive Patch,Medicated 1 patch transdermal QAM Qty: 14 0RF Continued albuterol sulfate [ProAir HFA] 90 mcg/actuation HFA aerosol inhaler 2 puff INHALATION Q4 PRN (Reason: Shortness Of Breath Or Wheezing) Qty: 6.7 5RF Rx Instructions: PER 1ST Spiriva Respimat 2.5 mcg/actuation mist 2 inh inhalation DAILY Qty: 4 5RF Rinvoq 15 mg tablet extended release 24 hr 15 mg PO DAILY Qty: 30 5RF budesonide-formoterol [Symbicort] 160-4.5 mcg/actuation HFA aerosol inhaler 2 inh inhalation BID Qty: 10.2 5RF albuterol sulfate 90 mcg/actuation HFA aerosol inhaler 2 inh inhalation QID PRN (Reason: shortness of breath or wheezing) Qty: 8.5 3RF metoprolol succinate [Toprol XL] 25 mg tablet extended release 24 hr 12.5 mg PO AMHS Rx Instructions: per 1st cyclobenzaprine 10 mg tablet 10 mg PO HS PRN (Reason: muscle spasm) Qty: 10 0RF gabapentin 100 mg capsule 100 mg PO Q8H PRN (Reason: pain) Qty: 20 0RF Held diltiazem HCl [Cardizem CD] 120 mg Capsule,Extended Release 24hr 120 mg PO QAM Qty: 30 0RF Hold Instructions: Provider's Order Patient reports not taking this. Will need to discuss with PCP. Discharge Orders: Discharge Order (Routine); Ordered 05/11/24 Ordered By: Adonay Novoa Admission Data Admit Date/Time: 05/09/24 06:23 Attending Provider: Adonay Novoa Admit Provider: Champ Ramirez Primary Care Provider: Mayuri Mayers Other Providers: Champ Ramirez; Grant Reynoso; Chiqui Gregory Hospital Stay Data Consultations 05/09/24 05:32 ED Decision to Admit Stat 05/09/24 06:12 Consult General Surgery Routine Consult Pulmonology Routine Diagnostic Imagining Performed 05/09/24 02:16 CT cervical spine wo con Stat CT chest diagnostic wo con Stat CT head/brain wo con Stat Pending Results Patient Have Any Pending Studies at Discharge: No Discharge Instructions Given to Patient (Per Discharging Provider) For your rib pain we will recommend a combination of ibuprofen and Tylenol. The following are scheduled medications. Take Tylenol 650 mg every 6 hours Take Ibuprofen 600 mg with meals. (every 8 hours) Also continue the lidocaine patch during the day. For break through pain: you can continue oxycodone 5 mg for moderate pain and 10 mg for severe pain. Remember the pain goal is 4/10 pain level. Please try to followup with PCP within 1 week. Do not operate heavy machinery while on the narcotics. Do not consume alcohol while taking narcotics. Coding Diagnoses Multiple rib fractures S22.49XA Alcohol intoxication F10.929 Hyponatremia E87.1 COPD (chronic obstructive pulmonary disease) J44.9
[2024-05-11 14:50] VITALS: BP 126/75; PULSE 102; RESP 16; TEMP 98.4
== END 2024-05-11 17:52 | disposition home or self-care (01) | DRG 184 ==
LOC: SUATTDRO → ED 01:45 → SUATTDRO 06:23 → EDINP 06:23 → 1E 09:30 → 3W 05-10 16:05